=== PATIENT | female | born 1945 | race Caucasian/White ===

== ENCOUNTER 2017-10-15 12:00 | Inpatient (IN) | payer BC, MEDICARE ==
--- NOTE | 2017-10-02 21:02 | HP ---
PREOPERATIVE HISTORY AND PHYSICAL: DATE OF ADMISSION: 10/15/17 PROVIDER: Shantell Dyer MD * (DICTATED BY CHERELLE RYAN) CHIEF COMPLAINT: Right hip pain. HISTORY OF PRESENT ILLNESS: Ms. Maxwell is a 72-year-old female, who has been followed by Dr. Dyer for ongoing pain in her right hip due to end-stage osteoarthritis and avascular necrosis. She has had an increase in hip pain and walking makes it very difficult. She has failed conservative treatment and has elected to proceed with a total hip arthroplasty. PAST MEDICAL HISTORY: Osteoarthritis, avascular necrosis of bilateral femoral heads, history of shoulder pain, cervical spine degeneration, trochanteric bursitis, hyperlipidemia, hypertension, coronary artery disease, atrial fibrillation, chronic low back pain, obstructive sleep apnea, and restless legs syndrome. PAST SURGICAL HISTORY: Cervical spine surgery, cardiac stents x3, cardio loop, cardioversion x4, appendectomy, cholecystectomy, and hysterectomy. She reports no complications with anesthesia. CURRENT MEDICATIONS: 1. Diltiazem 120 mg daily. 2. Hydrocodone/acetaminophen 7.5/325 mg 1 by mouth every 8 hours as needed for pain. 3. Propafenone HCl 225 mg by mouth twice daily. 4. Cartia XT 240 mg daily. 5. Xarelto 15 mg daily. 6. CPAP machine. ALLERGIES: OXYCONTIN and LATEX. FAMILY HISTORY: Positive for heart disease. 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 She is currently not working due to her hip pain and spine surgery. She quit smoking 15 years ago. She rarely drinks alcohol. She uses a cane or a rolling walker for ambulation. REVIEW OF SYSTEMS: Constitutional: Negative for recent hospitalizations, fevers, chills, night sweats, or unexplained weight loss. Head: Negative for headaches, lightheadedness, or balance problems. Cardiovascular: Negative for chest or arm pain with exertion, history of heart attack, heart murmur. Positive for heart palpitations. Negative for embolism or deep vein thrombosis. Respiratory: Negative for chronic cough, shortness of breath with exertion, asthma, or COPD. Gastrointestinal: Negative for heartburn, nausea, vomiting, diarrhea, constipation, or GERD. Genitourinary: Negative for nighttime urination, frequency of urination, urinary tract infections, or kidney problems. Musculoskeletal: Positive for chronic back and neck pain. Negative for recent fracture. Skin: Negative for rashes, lesions, lumps, or sores. Neurologic: Negative for seizure, stroke, epilepsy, depression, or anxiety. Endocrine: Negative for diabetes or thyroid problems. Hematology: Negative for easy bleeding, bruising, or anemia. PHYSICAL EXAMINATION GENERAL: She is a well-developed, well-nourished female in no acute distress at rest. She is alert and oriented x3 with appropriate mood and affect. Gait: She ambulates with an antalgic gait favoring the right lower extremity with mild abductor lurch. Balance has decreased single leg stance. Coordination is normal. VITAL SIGNS: The patient is 5 feet 4 inches, 178 pounds. Blood pressure 128/80 , pulse of 60. HEENT: Normocephalic, atraumatic. Her hearing and vision are grossly intact. NECK: Her trachea is midline. RESPIRATORY: Lungs are clear to auscultation bilaterally. No wheezes, rales, or rhonchi. CARDIOVASCULAR: Regular rate and rhythm. No murmurs, rubs, or gallops. Normal S1, S2. ABDOMEN: Soft, nondistended, nontender. Normal bowel sounds. EXTREMITIES: Exam of the right lower extremity: Skin is intact. There are no abrasions or open wounds. She is tender along the SI joint and trochanteric bursa. She has hip flexion of 95 degrees, 0 degrees of internal rotation, and 30 degrees of external rotation with severe pain in the groin. She has active flexion and abduction and 4+/5 strength due to pain. Distally, she is neurovascularly intact. Sensation to light touch is intact. She has a 2+ dorsalis pedis pulse. IMAGING: Multiple plain films of the right hip and MRI of her right hip were reviewed. She has avascular necrosis on an MRI from July of 2016. Plain radiograph showed degenerative osteoarthritic change with avascular necrosis of the femoral head. There is joint space narrowing, subchondral sclerosis and osteophyte formation. IMPRESSION: Right hip osteoarthritis. PLAN: The patient is to undergo a right total hip arthroplasty by Dr. Dyer on 10/15/17. Risks, benefits, and postoperative course were discussed with the patient at length and she would like to proceed. She will use Recluse for postoperative pain as OXYCODONE makes her significantly nauseous. All of her questions were answered to her full satisfaction. CHERELLE RYAN [id number]/[facility] #: [id number] [facility]ERS[facility] HOSPITALMercedes
[~2017-10-15 12:00] MED LIST: Buffered Lidocaine 0.9% SYRIN* 5 ML/SYR SYRINGE INTRADERM ONE; Famotidine IV* 10 MG/ML 2 ML (20 mg) IV ONE
--- OUTSIDE RECORDS SUMMARY | 2017-10-15 12:29 | XMS REPORT ---
:1945 External Reference #:[id number] Author Organization [facility] Address [address] [place] [address] [place] [address] Phone [phone] Care Team Providers Name Role Phone Humberto Milner MD Primary Care Physician Unavailable Payers Type Date Identification Numbers Payment Provider Subscriber Health Maintenance Policy Number: [facility] [id number] PayID: [id number] [address] [address] [place] [address] Problems Date Description Provider Status Onset: 06/27/2015 Localized, primary osteoarthritis Shantell Dyer M.D. Active of the pelvic region and thigh Onset: 07/25/2015 Zoster with other complications Shantell Dyer M.D. Active Onset: 12/07/2015 Low back pain Shantell Dyer M.D. Active Onset: 12/13/2015 Paroxysmal atrial fibrillation Patricia Galeas M.D. Active Onset: 12/13/2015 Coronary arteriosclerosis in Patricia Galeas M.D. Active wrangell artery Onset: 12/13/2015 Essential hypertension Patricia Galeas M.D. Active Onset: 12/13/2015 Mixed hyperlipidemia Patricia Galeas M.D. Active Onset: 02/10/2016 Trochanteric bursitis Shantell Dyer M.D. Active Onset: 03/02/2016 Calcium deposits in tendon Shantell Dyer M.D. Active Onset: 03/02/2016 Disorder of shoulder Shantell Dyer M.D. Active Onset: 06/07/2016 Persistent atrial fibrillation Patricia Galeas M.D. Active Onset: 06/28/2016 Sprain of shoulder and upper arm CHERELLE Benson Active Onset: 08/06/2016 Aseptic necrosis of head of femur Shantell Dyer M.D. Active Onset: 08/31/2016 Syncope and collapse Patricia Galeas M.D. 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 Active Onset: 12/04/2016 Inflammatory and toxic neuropathy Patricia Galeas M.D. 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 Active Onset: 06/24/2017 Preoperative cardiovascular Patricia Galeas M.D. 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 /2018 s every day Tucker, N.P. Restless Leg 09/06 Active qd Elvin Blanchard M.D. Cartia XT 09/06 Active Caps ER 120mg 30cap Take 1 by I10 Kristen S. 24HR s mouth daily Foster, with the N.P. 240mg for a total of 360mg Diltiazem HCL 07/09 Active Tablets 60mg 90tab 1/2 tab PO I48.1 s Am 1 Gudelia, tablets at M.D. lunch and 1/2 tablets PM Hydrocodone-Acetam 07/08 Active Tablets 7.5-325mg 28tab take one s tab by Lo, mouth every M.D. 8 hours as needed for pain Propafenone HCL 02/28 Active Tablets 225mg 180ta 1 tab by Patricia bs mouth twice Lamar, a day M.D. Cartia XT 01/22 Active Caps ER 240mg 90cap 1 by mouth Patricia 24HR s every day Lamar, M.D. Cpap Active Device using while Unknown /0000 sleeping (not as much as she should be per patient) [place] 07/03 Hx Tablets 5-325mg 60tab Wtake 1-2 s tabs by Lo, - mouth every M.D. 07/08 4-6 hours /2017 as needed for pain. Propafenone HCL 02/19 Hx Tablets 225mg 60tab 1 tab po I48.0 s twice a day Gudelia, - (waiting to M.D. 02/18 start after ECG 02/19/17- has not been sent to pharmacy yet) Metoprolol 02/15 Hx Tablets 50mg 90tab 2 by I47.2 Patricia Succinate ER 24HR s mouth every Lamar, - day ( M.D. 04/29 started medication change 04/26/17) Metoprolol 01/22 Hx Tablets 25mg 90tab 1 by mouth I47.2 Patricia Succinate ER 24HR s every day Lamar, - PM M.D. 02/15 Demadex 01/03 Hx Tablets 20mg 90tab t ablet prn s swelling, Lamar, - previously M.D. 08/14 1 tablet PO /2017 3 days weekly and as recommended by ( Pt has not taken ) Lasix 11/30 Hx Tablets 20mg 30tab 1 by mouth Patricia s q day x 2 Gudelia, - with M.D. 01/03 potassium then prn Klor-Con M10 11/30 Hx Tablets 10Meq 60tab 2 tab by Patricia ER s mouth with Lamar, - demadex M.D. 09/05 afterrnoon ( Takes 2 tablets prn when takes Torsemide) ( pt has not taken) Medrol 10/22 Hx Tablets 4mg 21tab take as M54.12 Jah s directed F - per dosepak Jaqueline, 11/05 instruction s Methylprednisolone 09/28 Hx TBPK 4mg 1unit take as M25.512 Shantell s directed Gomez, - M.DKarla 11/05 Meloxicam 08/06 Hx Tablets 15mg 60tab 1 by mouth M75.42 Shantell s every day Gomez, - M.DKarla 08/30 Hydrocodone-Acetam 06/28 Hx Tablets 7.5-325mg 30tab take one M25.511 Shantell inophen s tab by Gomez, - mouth every M.D. 09/23 4 hours needed for pain Sotalol HCL 06/07 Hx Tablets 80mg 180ta 1 tab by I48.1 Patricia bs mouth twice Lamar, - a day M.D. 02/15 Xarelto 06/06 Hx Tablets 15mg 30tab 1 by mouth David s every day F. - at night Mauser, 09/10 M.D. Cyclobenzaprine 03/19 Hx Tablets 10mg 40tab 1 tablet by M79.604 Shantell HCL s mouth q8 Gomez, - hours as M.D. 06/19 needed muscle spasms (Pt not taking) [place] Hx Tablets 10-325mg 1-2 by Unknown /0000 mouth - q4-6hr as 12/05 Valtrex Hx Tablets 500mg 1 by mouth Unknown /0000 twice a day - x 5 days 12/05 Diltiazem CD Hx Caps ER 240mg 1 by mouth Unknown /0000 24HR every day - 12/05 Aspirin Hx Tablets 81mg 1 by mouth Unknown /0000 every day - 12/05 Metoprolol Hx Tablets 50mg 90tab 1 by mouth I48.1 Patricia Tartrate /0000 s daily Lamar, - M.D. 06/07 Cartia XT Hx Caps ER 300mg 90cap 1 by mouth Patricia /0000 24HR s every day Lamar, - Am M.D. 01/22 (Rivaroxaban) Hx 20mg one daily Patricia Xarelto /0000 at hs Gudelia, - M.D. 06/06 Magnesium Oxide Hx Capsules 400mg by mouth Unknown every day - 05/08 Restful Legs Hx Tablets 4 tablet Unknown - 02/14 G Hx Quick 4 tablet po Unknown Disolve morning - daily 08/14 ( 4 tablet evening if needed ) ( Pt has not taken) Ibuprofen Hx Capsules 200mg 4 tablet po Unknown 1-2 times - daily ( Pt 09/05 does /2017 take) Medications Administered in Office Medication Date Status Form Strength Qnty SIG Indications Ordering Provider Inj, Administered Injection José Miguel Flores Regadenoson, 018 Demond, 0.1 MG Ashwin, PATITO, FASNC Technetium TC Administered Injection José Miguel Mark 99M 018 Carleen Lagos M.D., PATITO, Per Unit Dose FASNC Up To 40 Millicuries Depomedrol Administered Injection Shantell 40MG Sawyer Dyer M.D. Depomedrol Administered Injection Nadja B 40MG 017 CHERELLE Carreon Depomedrol Administered Injection Shantell 40MG Sawyer Dyer M.D. Depomedrol Administered Injection Shantell 40MG Sawyer Dyer M.D. Technetium TC Administered Injection José Miguel Flores 99M 017 Carleen Lagos M.D., PATITO, Per Unit Dose FASNC Up To 40 Millicuries Depomedrol Administered Injection Shantell 40MG 016 Ashwin Dyer Depomedrol Administered Injection Shantell 40MG 016 Aswhin Dyer Depomedrol Administered Injection Shantell 40MG 016 Ashwin Dyer Depomedrol Administered Injection Shantell 40MG 016 Ashwin Dyer Vital Signs Date Vital Result Comment 10/02/2017 Height 64 inches 5'4" Weight 178.00 lb Heart Rate 60 /min BP Systolic 128 mmHg BP Diastolic 80 mmHg BMI (Body Mass Index) 30.6 kg/m2 09/06/2017 Height 64 inches 5'4" Weight 176.00 lb Heart Rate 72 /min BP Systolic 128 mmHg BP Diastolic 62 mmHg Respiratory Rate 16 /min BMI (Body Mass Index) 30.2 kg/m2 Ejection Fraction 55-60% 05/17/2017 echo 09/06/2017 Height 64 inches 5'4" Weight 175.00 lb BP Systolic Sitting 132 mmHg BP Diastolic Sitting 80 mmHg Body Temperature 97.8 F Pain Level 4 BMI (Body Mass Index) 30.0 kg/m2 08/22/2017 Height 64 inches 5'4" Weight 177.00 lb Heart Rate 68 /min BP Systolic Sitting 164 mmHg Lue reg cuff BP Diastolic Sitting 80 mmHg Lue reg cuff BP Systolic Standing 162 mmHg BP Diastolic Standing 80 mmHg BP Systolic Recheck 169 mmHg left wrist home cuff BP Diastolic Recheck 87 mmHg left wrist home cuff Respiratory Rate 16 /min BMI (Body Mass Index) 30.4 kg/m2 Ejection Fraction 55-60% 05/17/17 08/09/2017 Height 64 inches 5'4" Weight 174.00 lb BP Systolic Sitting 130 mmHg BP Diastolic Sitting 80 mmHg Pain Level 2 BMI (Body Mass Index) 29.9 kg/m2 07/30/2017 Height 64 inches 5'4" Weight 174.00 lb with shoes Heart Rate 88 /min irreg BP Systolic Sitting 132 mmHg Rue reg cuff BP Diastolic Sitting 76 mmHg Rue reg cuff BP Systolic Standing 128 mmHg Rue reg cuff BP Diastolic Standing 74 mmHg Rue reg cuff Respiratory Rate 16 /min BMI (Body Mass Index) 29.9 kg/m2 Ejection Fraction 55-60% 05/17/2017-echo 07/17/2017 Weight 177.00 lb Heart Rate 104 /min BP Systolic Sitting 140 mmHg BP Diastolic Sitting 90 mmHg Body Temperature 97.8 F Pain Level 8 O2 % BldC Oximetry 92 % 07/09/2017 Heart Rate 128 /min irreg BP Systolic Sitting 150 mmHg Lue reg cuff BP Diastolic Sitting 90 mmHg Lue reg cuff BP Systolic Standing 144 mmHg Lue reg cuff BP Diastolic Standing 90 mmHg Lue reg cuff Respiratory Rate 22 /min 06/24/2017 Height 64 inches 5'4" Weight 177.00 lb No shoes Heart Rate 68 /min BP Systolic Sitting 138 mmHg Rue reg cuff BP Diastolic Sitting 76 mmHg Rue reg cuff BP Systolic Standing 140 mmHg Rue reg cuff BP Diastolic Standing 72 mmHg Rue reg cuff Respiratory Rate 17 /min BMI (Body Mass Index) 30.4 kg/m2 Ejection Fraction 55-60% 05/17/2017-echo 06/19/2017 Height 64 inches 5'4" Weight 178.00 lb Heart Rate 72 /min BP Systolic Sitting 130 mmHg BP Diastolic Sitting 80 mmHg Pain Level 9 BMI (Body Mass Index) 30.6 kg/m2 04/29/2017 Weight 178.00 lb with shoes Heart Rate 50 /min BP Systolic Sitting 120 mmHg Rue reg cuff BP Diastolic Sitting 60 mmHg Rue reg cuff BP Systolic Standing 112 mmHg Rue reg cuff states" Lightheaded" BP Diastolic Standing 58 mmHg Rue reg cuff states" Lightheaded" Respiratory Rate 12 /min O2 % BldC Oximetry 100 % at room air Ejection Fraction 55-60% date 07/20/2014 ECHO 03/28/2017 Height 64 inches 5'4" Weight 178.00 lb Heart Rate 88 /min BP Systolic Sitting 130 mmHg Rue reg cuff BP Diastolic Sitting 78 mmHg Rue reg cuff BP Systolic Standing 126 mmHg Rue BP Diastolic Standing 74 mmHg Rue Respiratory Rate 16 /min BMI (Body Mass Index) 30.6 kg/m2 Ejection Fraction 55-60% 07/20/14 03/08/2017 Height 64 inches 5'4" Heart Rate 76 /min apical BP Systolic Sitting 120 mmHg Ra< reg BP Diastolic Sitting 74 mmHg Ra< reg BP Systolic Standing 126 mmHg LA, reg BP Diastolic Standing 76 mmHg LA, reg 02/28/2017 Height 64 inches 5'4" Heart Rate 58 /min BP Systolic Sitting 128 mmHg Lue reg cuff BP Diastolic Sitting 78 mmHg Lue reg cuff BP Systolic Standing 122 mmHg Lue reg cuff BP Diastolic Standing 70 mmHg Lue reg cuff Respiratory Rate 16 /min 02/19/2017 Height 64 inches 5'4" Heart Rate 50 /min BP Systolic Sitting 110 mmHg Rue reg cuff BP Diastolic Sitting 60 mmHg Rue reg cuff BP Systolic Standing 120 mmHg Rue reg cuff BP Diastolic Standing 76 mmHg Rue reg cuff 02/15/2017 Height 64 inches 5'4" Weight 179.00 lb with shoes Heart Rate 50 /min BP Systolic Sitting 120 mmHg Rue lg cuff BP Diastolic Sitting 72 mmHg Rue lg cuff BP Systolic Standing 128 mmHg Rue lg cuff BP Diastolic Standing 70 mmHg Rue lg cuff Respiratory Rate 16 /min BMI (Body Mass Index) 30.7 kg/m2 Ejection Fraction 55-60% date 07/20/16 ECHO 02/12/2017 Height 64 inches 5'4" Weight 178.00 lb w/ shoes Heart Rate 58 /min reg BP Systolic Sitting 132 mmHg Rue, lg cuff BP Diastolic Sitting 74 mmHg Rue, lg cuff Respiratory Rate 16 /min O2 % BldC Oximetry 98 % on Ra BMI (Body Mass Index) 30.6 kg/m2 01/28/2017 Height 64 inches 5'4" Weight 177.00 lb Heart Rate 78 /min BP Systolic Sitting 140 mmHg BP Diastolic Sitting 82 mmHg Pain Level 4 BMI (Body Mass Index) 30.4 kg/m2 01/22/2017 Weight 177.00 lb with shoes Heart Rate 74 /min BP Systolic 140 mmHg Lue lf cuff BP Diastolic 80 mmHg Lue lf cuff BP Systolic Sitting 160 mmHg Lue lg cuff BP Diastolic Sitting 90 mmHg Lue lg cuff BP Systolic Lying Down 118 mmHg Lyning R BP Diastolic Lying Down 90 mmHg Lyning R 12/12/2016 Height 64 inches 5'4" Weight 218.00 lb Heart Rate 68 /min BP Systolic Sitting 120 mmHg BP Diastolic Sitting 68 mmHg Respiratory Rate 16 /min Pain Level 6 spasming feet back pain O2 % BldC Oximetry 95 % BMI (Body Mass Index) 37.4 kg/m2 12/04/2016 Height 64 inches 5'4" Weight 182.00 lb with shoes Heart Rate 68 /min BP Systolic Sitting 136 mmHg Lue reg cuff BP Diastolic Sitting 70 mmHg Lue reg cuff BP Systolic Standing 140 mmHg Lue reg cuff BP Diastolic Standing 74 mmHg Lue reg cuff Respiratory Rate 18 /min BMI (Body Mass Index) 31.2 kg/m2 Ejection Fraction 55-60% 07/20/2016-echo 11/26/2016 Height 64 inches 5'4" Weight 178.00 lb Heart Rate 72 /min BP Systolic Sitting 158 mmHg BP Diastolic Sitting 80 mmHg Pain Level 6 BMI (Body Mass Index) 30.6 kg/m2 11/05/2016 Height 64 inches 5'4" Weight 178.00 lb Heart Rate 78 /min BP Systolic Sitting 140 mmHg BP Diastolic Sitting 80 mmHg Pain Level 8 BMI (Body Mass Index) 30.6 kg/m2 10/31/2016 Height 64 inches 5'4" Weight 181.00 lb Heart Rate 64 /min BP Systolic Sitting 138 mmHg BP Diastolic Sitting 68 mmHg Respiratory Rate 14 /min O2 % BldC Oximetry 96 % BMI (Body Mass Index) 31.1 kg/m2 10/22/2016 Height 64 inches 5'4" Weight 177.00 lb Heart Rate 86 /min Respiratory Rate 16 /min Pain Level 8 BMI (Body Mass Index) 30.4 kg/m2 10/12/2016 Height 64 inches 5'4" Weight 177.00 lb Heart Rate 69 /min BP Systolic 138 mmHg BP Diastolic 71 mmHg Respiratory Rate 13 /min Pain Level 6 BMI (Body Mass Index) 30.4 kg/m2 09/28/2016 Height 64 inches 5'4" Weight 177.00 lb Heart Rate 68 /min BP Systolic 122 mmHg BP Diastolic 78 mmHg Respiratory Rate 15 /min Body Temperature 97.7 F Pain Level 7 BMI (Body Mass Index) 30.4 kg/m2 09/24/2016 Height 64 inches 5'4" Weight 177.00 lb Heart Rate 62 /min BP Systolic Sitting 124 mmHg right arm ,reg cuff BP Diastolic Sitting 76 mmHg right arm ,reg cuff Respiratory Rate 20 /min O2 % BldC Oximetry 97 % room air BMI (Body Mass Index) 30.4 kg/m2 Neck Circumference in inches 15 08/31/2016 Height 64 inches 5'4" Weight 174.00 lb Heart Rate 62 /min BP Systolic Sitting 146 mmHg Lue reg cuff BP Diastolic Sitting 82 mmHg Lue reg cuff BP Systolic Standing 142 mmHg Lue reg cuff BP Diastolic Standing 82 mmHg Lue reg cuff Respiratory Rate 16 /min BMI (Body Mass Index) 29.9 kg/m2 Ejection Fraction 55-60% echo 07/201408/24/2016 Height 64 inches 5'4" Weight 169.00 lb Heart Rate 68 /min BP Systolic 139 mmHg BP Diastolic 64 mmHg Body Temperature 97.4 F Pain Level 4 BMI (Body Mass Index) 29.0 kg/m2 08/06/2016 Height 63 inches 5'3" Weight 172.00 lb Heart Rate 79 /min BP Systolic 161 mmHg BP Diastolic 88 mmHg Body Temperature 98.2 F BMI (Body Mass Index) 30.5 kg/m2 08/03/2016 Height 63 inches 5'3" Weight 175.50 lb w/o shoes Heart Rate 72 /min BP Systolic Sitting 142 mmHg LA reg cuff BP Diastolic Sitting 86 mmHg LA reg cuff BP Systolic Standing 150 mmHg LA reg cuff BP Diastolic Standing 80 mmHg LA reg cuff BMI (Body Mass Index) 31.1 kg/m2 Ejection Fraction 55-60% Echo 07/20/14 07/06/2016 Height 63 inches 5'3" Weight 172.00 lb Heart Rate 67 /min BP Systolic 141 mmHg BP Diastolic 68 mmHg Respiratory Rate 18 /min Body Temperature 98.0 F Pain Level 5 BMI (Body Mass Index) 30.5 kg/m2 06/28/2016 Height 63 inches 5'3" Weight 172.00 lb Heart Rate 88 /min BP Systolic Sitting 130 mmHg BP Diastolic Sitting 78 mmHg Respiratory Rate 18 /min Pain Level 10 BMI (Body Mass Index) 30.5 kg/m2 06/18/2016 Height 63 inches 5'3" Weight 172.00 lb Heart Rate 84 /min BP Systolic 118 mmHg BP Diastolic 74 mmHg Pain Level 10 BMI (Body Mass Index) 30.5 kg/m2 06/07/2016 Height 63 inches 5'3" Weight 175.00 lb Heart Rate 80 /min BP Systolic Sitting 126 mmHg Lue reg cuff BP Diastolic Sitting 84 mmHg Lue reg cuff BP Systolic Standing 130 mmHg Lue BP Diastolic Standing 90 mmHg Lue Respiratory Rate 14 /min BMI (Body Mass Index) 31.0 kg/m2 Ejection Fraction 55-60% 07/20/14 05/08/2016 Height 63 inches 5'3" Weight 176.00 lb Heart Rate 100 /min irregular BP Systolic Sitting 118 mmHg BP Diastolic Sitting 84 mmHg BP Systolic Standing 112 mmHg BP Diastolic Standing 82 mmHg Respiratory Rate 16 /min BMI (Body Mass Index) 31.2 kg/m2 Ejection Fraction 55-60% 07/20/14 03/19/2016 Height 63 inches 5'3" Heart Rate 52 /min BP Systolic 135 mmHg BP Diastolic 74 mmHg 03/16/2016 Height 63 inches 5'3" Weight 172.00 lb w/o shoes Heart Rate 84 /min BP Systolic Sitting 120 mmHg Rue, reg cuff BP Diastolic Sitting 80 mmHg Rue, reg cuff BP Systolic Standing 114 mmHg Rue BP Diastolic Standing 80 mmHg Rue Respiratory Rate 16 /min O2 % BldC Oximetry 96 % on Ra BMI (Body Mass Index) 30.5 kg/m2 Ejection Fraction 55-60% as of 07/20/14 echo 03/02/2016 Height 63 inches 5'3" Weight 165.00 lb BP Systolic 128 mmHg BP Diastolic 70 mmHg BMI (Body Mass Index) 29.2 kg/m2 02/20/2016 Height 63 inches 5'3" Weight 164.00 lb Pain Level 0 BMI (Body Mass Index) 29.0 kg/m2 02/10/2016 Height 63 inches 5'3" Weight 164.00 lb Respiratory Rate 16 /min Pain Level 6 BMI (Body Mass Index) 29.0 kg/m2 12/13/2015 Height 63 inches 5'3" Weight 164.50 lb no shoes Heart Rate 62 /min BP Systolic Sitting 152 mmHg LA reg cuff BP Diastolic Sitting 70 mmHg LA reg cuff BP Systolic Standing 146 mmHg LA reg cuff BP Diastolic Standing 66 mmHg LA reg cuff Respiratory Rate 16 /min BMI (Body Mass Index) 29.1 kg/m2 Ejection Fraction 55-60% 07/20/14 12/07/2015 Heart Rate 60 /min BP Systolic 131 mmHg BP Diastolic 71 mmHg Pain Level 0 07/25/2015 Height 63 inches 5'3" Weight 170.00 lb Pain Level 5 BMI (Body Mass Index) 30.1 kg/m2 07/04/2015 Height 63 inches 5'3" Weight 170.00 lb Pain Level 8 BMI (Body Mass Index) 30.1 kg/m2 06/27/2015 Height 63 inches 5'3" Weight 170.00 lb Heart Rate 76 /min BP Systolic Sitting 150 mmHg BP Diastolic Sitting 70 mmHg Respiratory Rate 16 /min Pain Level 8 BMI (Body Mass Index) 30.1 kg/m2 Results Test Date Test Result H/L Range Note CBC No Diff 06/25/2017 White Blood Count 6.8 10^3/uL 3.5-10.8 Red Blood Count 4.86 10^6/uL 4.0-5.4 Hemoglobin 14.4 g/dL 12.0-16.0 Hematocrit 43 % 35-47 Mean Corpuscular Volume 89 fL 80-97 Mean Corpuscular Hemoglobin 30 pg 27-31 Mean Corpuscular HGB Conc 33 g/dL 31-36 Red Cell Distribution Width 14 % 10.5-15 Platelet Count 240 10^3/uL 150-450 Mean Platelet Volume 8 um3 7.4-10.4 Basic Metabolic Panel 06/25/2017 Sodium 139 mmol/L 133-145 Potassium 4.6 mmol/L 3.5-5.0 Chloride 104 mmol/L 101-111 Co2 Carbon Dioxide 27 mmol/L 22-32 Anion Gap 8 mmol/L 2-11 Glucose 104 mg/dL High 70-100 Blood Urea Nitrogen 18 mg/dL 6-24 Creatinine 0.85 mg/dL 0.51-0.95 BUN/Creatinine Ratio 21.2 High 8-20 Calcium 9.7 mg/dL 8.6-10.3 Egfr Non- 65.7 >60 Egfr 84.5 >60 1 Laboratory test finding 06/25/2017 TSH (Thyroid Stim Horm) 2.41 mcIU/mL 0.34-5.60 Basic Metabolic Panel 04/11/2017 Sodium 137 mmol/L 133-145 Potassium 4.0 mmol/L 3.5-5.0 Chloride 107 mmol/L 101-111 Co2 Carbon Dioxide 23 mmol/L 22-32 Anion Gap 7 mmol/L 2-11 Glucose 101 mg/dL High 70-100 Blood Urea Nitrogen 21 mg/dL 6-24 Creatinine 0.67 mg/dL 0.51-0.95 BUN/Creatinine Ratio 31.3 High 8-20 Calcium 8.7 mg/dL 8.6-10.3 Egfr Non- 86.5 >60 Egfr 111.3 >60 2 Laboratory test finding 04/11/2017 B-Type Natriuretic 178 pg/mL High 3 Peptide BNP Basic Metabolic Panel 01/22/2017 Sodium 139 mmol/L 133-145 Potassium 4.1 mmol/L 3.5-5.0 Chloride 104 mmol/L 101-111 Co2 Carbon Dioxide 26 mmol/L 22-32 Anion Gap 9 mmol/L 2-11 Glucose 103 mg/dL High 70-100 Blood Urea Nitrogen 16 mg/dL 6-24 Creatinine 0.70 mg/dL 0.51-0.95 BUN/Creatinine Ratio 22.9 High 8-20 Calcium 9.5 mg/dL 8.6-10.3 Egfr Non- 82.5 >60 Egfr 106.1 >60 4 Laboratory test finding 01/22/2017 Magnesium 2.0 mg/dL 1.9-2.7 CBC Auto Diff 06/29/2016 White Blood Count 15.0 10^3/uL High 3.5-10.8 Red Blood Count 5.15 10^6/uL 4.0-5.4 Hemoglobin 15.5 g/dL 12.0-16.0 Hematocrit 47 % 35-47 Mean Corpuscular Volume 91 fL 80-97 Mean Corpuscular Hemoglobin 30 pg 27-31 Mean Corpuscular HGB Conc 33 g/dL 31-36 Red Cell Distribution Width 15 % 10.5-15 Platelet Count 234 10^3/uL 150-450 Mean Platelet Volume 8 um3 7.4-10.4 Abs Neutrophils 12.5 10^3/uL High 1.5-7.7 Abs Lymphocytes 1.5 10^3/uL 1.0-4.8 Abs Monocytes 0.9 10^3/uL High 0-0.8 Abs Eosinophils 0 10^3/uL 0-0.6 Abs Basophils 0.1 10^3/uL 0-0.2 Abs Nucleated RBC 0 10^3/uL Granulocyte % 83.2 % High 38-83 Lymphocyte % 9.8 % Low 25-47 Monocyte % 6.3 % 1-9 Eosinophil % 0.1 % 0-6 Basophil % 0.6 % 0-2 Nucleated Red Blood Cells % 0 Laboratory test finding 06/29/2016 Magnesium 2.0 mg/dL 1.9-2.7 Basic Metabolic Panel 06/29/2016 Sodium 131 mmol/L Low 133-145 Potassium 4.3 mmol/L 3.5-5.0 Chloride 101 mmol/L 101-111 Co2 Carbon Dioxide 23 mmol/L 22-32 Anion Gap 7 mmol/L 2-11 Glucose 111 mg/dL High 70-100 Blood Urea Nitrogen 21 mg/dL 6-24 Creatinine 0.64 mg/dL 0.51-0.95 BUN/Creatinine Ratio 32.8 High 8-20 Calcium 9.1 mg/dL 8.6-10.3 Egfr Non- 91.5 >60 Egfr 117.6 >60 5 Arthritis Panel 06/20/2016 Uric Acid 5.4 mg/dL 2.3-6.6 Erythrocyte Sed Rate 11 mm/Hr 0-40 Rheumatoid Factor <15 IU/mL <15 6 Anti-Nuclear Antibody 0.2 U 7 Cyclic Citrullinated Peptide <15.6 U 8 Interpretation See Comment 9 1 Because ethnic data is not always readily available, this report includes an eGFR for both -Americans and non- Americans. The National Kidney Disease Education Program (NKDEP) does not endorse the use of the MDRD equation for patients that are not between the ages of 18 and 70, are , have extremes of body size, muscle mass, or nutritional status, or are non- or non-. According to the National Kidney Foundation, irrespective of diagnosis, the stage of the disease is based on the level of kidney function: Stage Description GFR(mL/min/1.73 m(2)) 1 Kidney damage with normal or decreased GFR 90 2 Kidney damage with mild decrease in GFR 60-89 3 Moderate decrease in GFR 30-59 4 Severe decrease in GFR 15-29 5 Kidney failure <15 (or dialysis) 2 Because ethnic data is not always readily available, this report includes an eGFR for both -Americans and non- Americans. The National Kidney Disease Education Program (NKDEP) does not endorse the use of the MDRD equation for patients that are not between the ages of 18 and 70, are , have extremes of body size, muscle mass, or nutritional status, or are non- or non-. According to the National Kidney Foundation, irrespective of diagnosis, the stage of the disease is based on the level of kidney function: Stage Description GFR(mL/min/1.73 m(2)) 1 Kidney damage with normal or decreased GFR 90 2 Kidney damage with mild decrease in GFR 60-89 3 Moderate decrease in GFR 30-59 4 Severe decrease in GFR 15-29 5 Kidney failure <15 (or dialysis) 3 >100 to <200 pg/mL: likely compensated congestive heart failure (CHF) 200 to 400 pg/mL: likely moderate CHF >400 pg/mL: likely moderate to severe CHF 4 Because ethnic data is not always readily available, this report includes an eGFR for both -Americans and non- Americans. The National Kidney Disease Education Program (NKDEP) does not endorse the use of the MDRD equation for patients that are not between the ages of 18 and 70, are , have extremes of body size, muscle mass, or nutritional status, or are non- or non-. According to the National Kidney Foundation, irrespective of diagnosis, the stage of the disease is based on the level of kidney function: Stage Description GFR(mL/min/1.73 m(2)) 1 Kidney damage with normal or decreased GFR 90 2 Kidney damage with mild decrease in GFR 60-89 3 Moderate decrease in GFR 30-59 4 Severe decrease in GFR 15-29 5 Kidney failure <15 (or dialysis) 5 Because ethnic data is not always readily available, this report includes an eGFR for both -Americans and non- Americans. The National Kidney Disease Education Program (NKDEP) does not endorse the use of the MDRD equation for patients that are not between the ages of 18 and 70, are , have extremes of body size, muscle mass, or nutritional status, or are non- or non-. According to the National Kidney Foundation, irrespective of diagnosis, the stage of the disease is based on the level of kidney function: Stage Description GFR(mL/min/1.73 m(2)) 1 Kidney damage with normal or decreased GFR 90 2 Kidney damage with mild decrease in GFR 60-89 3 Moderate decrease in GFR 30-59 4 Severe decrease in GFR 15-29 5 Kidney failure <15 (or dialysis) 6 Test Performed by: [address] [address] 7 REFERENCE VALUE <=1.0 (Negative) 8 REFERENCE VALUE <20.0 (Negative) 9 Tests for antibodies to dsDNA and BILL antigens are not performed automatically unless the KRYSTEN result is > or= 3.0 U. Studies performed at [facility] indicate that positive KRYSTEN results <3.0 U are rarely accompanied by positive second order tests. Test Performed by: [address] [address] Procedures Date CPT Code Description Status 09/06/2017 70801 EKG Tracing & Interpretation Completed 08/22/2017 02689 EKG Tracing & Interpretation Completed 08/22/2017 67499 EKG Tracing & Interpretation Completed 08/18/2017 99734 Implantable Cardio System Loop Recorder Sys Remota Data Completed Acquistio 08/18/2017 25159 Interrogation Dev Loop Recorder Incl Physician Completed Analysis,Rev,Repor 08/15/2017 08324 Moderate Sedation Services; Same Phys Intl 15 Mins; PT Completed >=5 Years 08/15/2017 57911 Cardioversion Completed 07/30/2017 36258 EKG Tracing & Interpretation Completed 07/18/2017 35628 Implantable Cardio System Loop Recorder Sys Remota Data Completed Acquistio 07/18/2017 55209 Interrogation Dev Loop Recorder Incl Physician Completed Analysis,Rev,Repor 07/09/2017 99557 EKG Tracing & Interpretation Completed 07/02/2017 10517 Anterior Instrumentation 2-3 Vertebral Segments Completed 07/02/2017 22527 Anterior Instrumentation 2-3 Vertebral Segments Completed 07/02/2017 96886 arthrodesis,anterior interbody incl disc space Completed prep,discectomy,de 07/02/2017 43301 arthrodesis,anterior interbody incl disc space Completed prep,discectomy,de 07/02/2017 22422 Allograft For Spine Surgery,Structural (Bone Bank) Completed 06/25/2017 10726 Pulmonary Function><Bronchodil Completed 06/24/2017 38008 EKG Tracing & Interpretation Completed 06/17/2017 57984 Implantable Cardio System Loop Recorder Sys Remota Data Completed Acquistio 06/17/2017 34449 Interrogation Dev Loop Recorder Incl Physician Completed Analysis,Rev,Repor 05/28/2017 09140 Myocardial Perfusion Imaging Tomographic (Spect) Completed Multiple Studies 05/28/2017 81502 Stress Test Completed 05/17/2017 84264 ECHO Transthoracic, Real-Time 2D With Doppler And Color Completed Flow 05/17/2017 60270 ECHO Transthoracic, Real-Time 2D With Doppler And Color Completed Flow 05/17/2017 68396 Implantable Cardio System Loop Recorder Sys Remota Data Completed Acquistio 05/17/2017 69453 Interrogation Dev Loop Recorder Incl Physician Completed Analysis,Rev,Repor 04/29/2017 40668 EKG Tracing & Interpretation Completed 04/16/2017 07146 Implantable Cardio System Loop Recorder Sys Remota Data Completed Acquistio 04/16/2017 51769 Interrogation Dev Loop Recorder Incl Physician Completed Analysis,Rev,Repor 04/11/2017 79194 Cardioversion Completed 04/11/2017 98454 EKG, Interpretation Only Completed 04/11/2017 92882 Moderate Sedation Services; Same Phys Intl 15 Mins; PT Completed >=5 Years 03/28/2017 42086 EKG Tracing & Interpretation Completed 03/16/2017 32926 Implantable Cardio System Loop Recorder Sys Remota Data Completed Acquistio 03/16/2017 28722 Interrogation Dev Loop Recorder Incl Physician Completed Analysis,Rev,Repor 03/08/2017 54405 EKG Tracing & Interpretation Completed 03/08/2017 76291 EKG Tracing & Interpretation Completed 03/08/2017 64336 EKG Tracing & Interpretation Completed 03/08/2017 32579 EKG Tracing & Interpretation Completed 02/28/2017 58719 EKG Tracing & Interpretation Completed 02/28/2017 54095 EKG Tracing & Interpretation Completed 02/19/2017 95754 EKG Tracing & Interpretation Completed 02/19/2017 20846 EKG Tracing & Interpretation Completed 02/15/2017 16013 EKG Tracing & Interpretation Completed 02/13/2017 28574 Implantable Cardio System Loop Recorder Sys Remota Data Completed Acquistio 02/13/2017 92318 Interrogation Dev Loop Recorder Incl Physician Completed Analysis,Rev,Repor 01/22/2017 28642 EKG Tracing & Interpretation Completed 01/13/2017 18156 Implantable Cardio System Loop Recorder Sys Remota Data Completed Acquistio 01/13/2017 36729 Interrogation Dev Loop Recorder Incl Physician Completed Analysis,Rev,Repor 12/13/2016 63804 Interrogation Dev Loop Recorder Incl Physician Completed Analysis,Rev,Repor 12/13/2016 82033 Implantable Cardio System Loop Recorder Sys Remota Data Completed Acquistio 11/12/2016 99209 Implantable Cardio System Loop Recorder Sys Remota Data Completed Acquistio 11/12/2016 12479 Interrogation Dev Loop Recorder Incl Physician Completed Analysis,Rev,Repor 10/11/2016 30407 Implant Cardiac Loop Recorder Completed 10/02/2016 33816 Sleep Study Unattended,HRT Rate,Oxygen Sat,Resp Completed Effort/Airflow 08/31/2016 82676 EKG Tracing & Interpretation Completed 08/06/201697999 Inject/Drain Joint/Bursa Major W/O US Completed 08/03/2016 64189 EKG Tracing & Interpretation Completed 06/29/2016 01374 EKG, Interpretation Only Completed 06/29/2016 11230 Cardioversion Completed 06/28/201681544 Inject/Drain Joint/Bursa Major W/O US Completed 06/18/201616498 Inject/Drain Joint/Bursa Major W/O US Completed 06/07/2016 48353 EKG Tracing & Interpretation Completed 05/22/2016 36477 Stress Test Completed 05/22/2016 91645 Myocardial Perfusion Imaging Tomographic (Spect) Completed Multiple Studies 03/25/2016 78774 Holter Monitor Review (24 hr)dr review & interp only Completed 03/21/2016 39809 ECG Monitor/Recording W/Visual Superimposition Scanning Completed 03/16/2016 47196 EKG Tracing & Interpretation Completed 03/02/201656176 Inject/Drain Joint/Bursa Major W/O US Completed 02/20/201693445 Injection Single Tendon Origin/Insertion Completed 02/10/2016 15457 Injection Single Tendon Origin/Insertion Completed 12/13/2015 57914 EKG Tracing & Interpretation Completed 11/30/2015 21434 Color Flow Doppler/Interp & Reprt Completed 11/30/2015 66397 Pulse Wave/Continuous-Interp.RPT Completed 11/30/2015 59025 Echocardiography, Transesophageal, Real Time W/Image 2D Completed W/W/O M-M 11/30/2015 44159 EKG, Interpretation Only Completed 11/30/2015 48458 Cardioversion Completed 06/27/201525127 Inject/Drain Joint/Bursa Major W/O US Completed 07/20/2014 84647 ECHO Transthorasic Realtime 2D W Doppler & Color Flow Completed Hosp 07/19/2014 32657 EKG, Interpretation Only Completed Encounters Type Date Location Provider CPT E/M Dx Office Visit 09/06/2017 [facility] Kristen Ceballos N.P. 23058 I48.1 3:30p Gambling Counsellor Z95.818 I25.119 I10 Z01.810 M87.051 M70.61 Office Visit 09/06/2017 1:45p [facility] Shantell Dyer M.D. 70552 M16.11 C.M.A. M87.051 M70.61 M25.551 Office Visit 08/22/2017 2:00p [facility] Kristen Ceballos, 50688 Z95.818 [facility] N.P. I48.91 I10 Office Visit 07/30/2017 9:30a [facility] Kristen Ceballos, 03837IVP I10 [facility] N.P. I48.1 Office Visit 07/09/2017 11:30a [facility] Patricia Galeas M.D. 54420 I48.1 Gambling Counsellor Office Visit 07/03/2017 10:13a [facility] Denise [facility], 63091 I48.91 Hospitalists [employer] MECHANIC M54.12 I10 Office Visit 07/02/2017 10[facility] [place] [address] I48.91 Assoc,pc Hospitalists N.P. M54.12 I10 Office Visit 06/24/2017 1:50p [facility] Patricia Galeas M.D. 61192 Z01.810 [facility] I48.0 I25.119 R06.02 M50.821 Office Visit 06/19/2017 2:30p [facility] Jeffery Blanchard, 73817 M47.812 Of Charlee Christopher Office Visit 04/29/2017 12:15p [facility] Patricia Galeas M.D. 00961 I48.0 [facility] R06.02 G47.33 I25.119 Office Visit 03/28/2017 2:30p [facility] Kandice Galeas M.D. 13086 I48.1 Charlee R06.02 Z95.818 Office Visit 02/19/2017 1:30p [facility] Of CHERELLE Quintana 06502 I48.0 R06.02 Z95.818 Office Visit 02/15/2017 2:45p [facility] Patricia Galeas M.D. 67478 I48.0 Charlee G47.33 I25.10 R06.02 Office Visit 02/12/2017 1:00p [facility] Noemí Draper, 25412 G47.33 Services Of Gambling Counsellor SAYRA, RN, GRAPHOTYPE OPERATOR-BC G47.14 F40.240 Office Visit 01/28/2017 3:20p [facility] Jeffery Blanchard 96311 M47.812 Of [facility] M.D. Office Visit 01/22/2017 8:45a [facility] Of Gonzalez GalanKarla Valderrama, 09875 I47.2 [facility] DO FAC I25.2 I25.10 I48.0 Office Visit 12/12/2016 1:15p [facility] Noemí Draper, 41119 G47.33 Services Of [facility] JORDY COLBERT, [facility] Office Visit 12/04/2016 2:30p [facility] Patricia Galeas M.D. 23318 H81.10 [facility] G62.9 R60.0 I48.0 R42 Office Visit 11/26/2016 1:30p [facility] Jeffery Blanchard 01878 M50.821 Of [facility] M.D. Office Visit 11/05/2016 1:00p [facility]surgery Services Kimi Hurt PA-C 34732 M54.12 Of [facility] Office Visit 10/31/2016 1:15p [facility] Noemí Draper, 57875 G47.33 Services Of [facility] JORDY COLBERT, [facility] G47.10 F40.240 Office Visit 10/22/2016 2:00p [facility] Of Jah Parsons, 99569 M47.22 Familia ROBERTSON M75.52 Office Visit 10/12/2016 2:15p [facility] Shantell Dyer M.D. 75988 M25.512 Leslie.MJessica M75.42 S46.012A Office Visit 09/28/2016 2:30p [facility] Shant[facility] D[facility] M.D. 00851 M25.512 Leslie.Edgar M75.42 S46.012A Office Visit 09/24/2016 2:45p [facility] [place] [address] R06.83 Services Of [facility] G47.10 R51 R45.1 R55 Office Visit 08/31/2016 1:00p [facility] Patricia Galeas M.D. 71669 R55 I48.0 R32 Office Visit 08/24/2016 1:45p [facility] Shantell Dyer M.D. 27614 M25.512 C.M.A. M75.42 S46.012A Office Visit 08/06/2016 3:00p [facility] Shantell Dyer M.D. 87742 M25.512 C.M.A. M75.42 S46.012A W19.xxxA M87.051 M87.052 M25.551 M25.552 Office Visit 08/03/2016 2:30p [facility] CHERELLE Orona 52419 I48.0 M25.511 M25.551 M25.512 Office Visit 07/06/2016 2:30p [facility] Shantell Dyer M.D. 83833 M25.551 C.M.A. M70.61 Office Visit 06/28/2016 2:00p [facility] Nadja Carreon 36975 M25.511 Of CEthan VILLARREAL S46.011A Office Visit 06/18/2016 1:15p [facility] Shantell Dyer M.D. 54887 M25.552 C.M.A. M25.551 M70.61 M70.62 M25.511 M25.512 M75.41 M75.42 Office Visit 06/07/2016 3:15p [facility] Patricia Galeas M.D. 33020 I48.1 [facility] R06.02 G47.9 I25.10 Office Visit 05/08/2016 1:30p [facility] Patricia Galeas M.D. 27725 R09.02 [facility] I48.1 Z68.31 I25.10 Office Visit 03/19/2016 2:15p [facility] Shantell Dyer M.D. 51741 M79.604 C.M.A. M79.605 Office Visit 03/16/2016 2:00p [facility] CHERELLE Orona 06656 I48.91 R09.02 Office Visit 03/02/2016 2:00p [facility] Shantell Dyer M.D. 96645 M65.221 C.M.A. M25.512 M25.511 M75.41 M75.42 Office Visit 02/10/2016 11:15a [facility] Shantell Dyer M.D. 61893 M25.551 C.M.A. M25.552 M16.11 M70.61 M70.62 Office Visit 12/13/2015 4:00p [facility] Patricia Galeas M.D. 05434 I48.0 [facility] I25.10 I10 E78.2 R06.01 G47.9 Office Visit 12/07/2015 8:00a [facility] Shantell Dyer M.D. 64937 M54.5 C.M.A. Office Visit 11/30/2015 7:54a [facility], Jad Yu, 67686 I48.91 Hospitalists Ashwin I25.10 E87.6 I10 Office Visit 11/30/2015 3:52p [facility] Patricia Galeas M.D. 15312 I48.0 Gambling Counsellor Office Visit 11/29/2015 7:54a [facility], Jad Yu, 01294 I48.91 Hospitalists Ashwin I25.10 E87.6 I10 Office Visit 07/25/2015 9:45a [facility] Shantell Dyer M.D. 39502 M16.11 C.M.A. M70.61 M25.551 B02.8 Office Visit 07/04/2015 12:45p [facility] Shantell Dyer M.D. 34219 M16.11 C.M.A. M70.61 M25.551 Office Visit 06/27/2015 10:00a [facility] Shantell Dyer M.D. 20074 M16.11 C.M.A. M70.61 M25.551 Office Visit 07/20/2014 8:57a [facility], Kristen Ceballos, 61550 558.9 Hospitalists N.P. 427.31 414.00 276.8 Office Visit 07/19/2014 8:57a [facility], Kristen Ceballos, 49680 558.9 Hospitalists N.P. 427.31 414.00 276.8 Plan of Care Future Appointment(s):10/25/2017 1:45 pm - Shantell Dyer M.D. at [facility]11/08/2017 11:00 am - Patricia [facility]as M.D. at [facility] [place] [facility] [place] 3:30 pm - Shantell Dyer M.D. 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
--- OUTSIDE RECORDS SUMMARY | 2017-10-15 12:29 | XMS REPORT ---
:1945 External Reference #:[id number] Author Organization [place] [email or web address] Address [address] [place] [address] Phone [phone] Care Team Providers Name Role Phone Humberto Milner MD Primary Care Physician Unavailable Payers Type Date Identification Numbers Payment Provider Subscriber Health Maintenance Policy Number: [facility] Douglas Lu [facility] ([facility]) [id number] PayID: [id number] [address] [address] [place] [address] Problems Date Description Provider Status Onset: 06/27/2015 Localized, primary osteoarthritis Shantell Dyer M.D. Active of the pelvic region and thigh Onset: 07/25/2015 Zoster with other complications Shantell Dyer M.D. Active Onset: 12/07/2015 Low back pain Shantell Dyer M.D. Active Onset: 12/13/2015 Paroxysmal atrial fibrillation Patricia Galeas M.D. Active Onset: 12/13/2015 Coronary arteriosclerosis in Patricia Galeas M.D. Active [place] artery Onset: 12/13/2015 Essential hypertension Patricia Galeas [...] apnea syndrome Noemí Draper DNP, RN, Active SLEEP SCIENTIST-BC Onset: 10/31/2016 Hypersomnia Noemí Draper DNP, RN, Active SLEEP SCIENTIST-BC Onset: 11/26/2016 Cervical disc disorder Jeffery Blanchard M.D. Active Onset: 12/04/2016 Inflammatory and toxic neuropathy Patricia Galeas M.D. 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 Active Onset: 06/24/2017 Preoperative cardiovascular Patricia Galeas M.D. 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 Active art w unsp ang pctrs Onset: 08/09/2017 Convalescence after surgery Jeffery Blanchard M.D. 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 days Xarelto 09/10 Active Tablets 20mg 90tab 1 by mouth s every day Ashwin Galeas Restless Leg 09/06 Active qd Ashwin Blanchard Cartia XT 09/06 Active Caps ER 120mg 30cap Take 1 by I10 Kristen 24HR s mouth daily Foster, with the N.P. 240mg for a total of 360mg Diltiazem HCL 07/09 Active Tablets 60mg 90tab 1/2 tab PO I48.1 s Am 1 Naranjito, tablets at M.D. lunch and 1/2 tablets PM Hydrocodone-Acetam 07/08 Active Tablets 7.5-325mg 28tab take one s tab by Lo, mouth every M.DKarla 8 hours as needed for pain Propafenone HCL 02/28 Active Tablets 225mg 180ta 1 tab by Patricia bs mouth twice Naranjito, a day M.DKarla Cartia XT 01/22 Active Caps ER 240mg 90cap 1 by mouth 24HR s every day Ashwin Galeas Cpap Active Device using while Unknown /0000 sleeping (not as much as she should be per patient) [place] 07/03 Hx Tablets 5-325mg 60tab Wtake 1-2 s tabs by Lo, - mouth every M.D. 07/08 4-6 hours /2017 as needed for pain. Propafenone HCL 02/19 Hx Tablets 225mg 60tab 1 tab po I48.0 s twice a day Gudelia, - (waiting to Ashwin 02/18 start after ECG 02/19/17- has not been sent to pharmacy yet) Metoprolol 02/15 Hx Tablets 50mg 90tab 1/2 by I47.2 Patricia Succinate ER 24HR s mouth every Naranjito, - day ( M.D. 04/29 medication change 04/26/17) Metoprolol 01/22 Hx Tablets 25mg 90tab 1 by mouth I47.2 Patricia Succinate ER 24HR s every day [place]aranj[place], - PM M.D. 02/15 Demadex 01/03 Hx Tablets 20mg 90tab t ablet prn s swelling, [place]aranjito, - previously M.D. 08/14 1 tablet PO /2017 3 days weekly and as recommended by ( Pt has not taken ) Lasix 11/30 Hx Tablets 20mg 30tab 1 by mouth Patricia s q day x 2 [place], - with M.D. 01/03 potassium then prn Klor-Con M10 11/30 Hx Tablets 10Meq 60tab 2 tab by Patricia ER s mouth with Gudelia, - demadex M.D. 09/05 afterrnoon ( Takes 2 tablets prn when takes Torsemide) ( pt has not taken) Medrol 10/22 Hx Tablets 4mg 21tab take as M54.12 Jah s directed F - per dosepacasimiro Parsons, 11/05 instruction s Methylprednisolone 09/28 Hx TBPK 4mg 1unit take as M25.512 Shantell s directed Gomez, - M.DKarla 11/05 Meloxicam 08/06 Hx Tablets 15mg 60tab 1 by mouth M75.42 Shantell s every day Gomez, - M.D. 08/30 Hydrocodone-Acetam 06/28 Hx Tablets 7.5-325mg 30tab take one M25.511 Shantell inophen s tab by Gomez, - mouth every M.D. 09/23 4 hours needed for pain Sotalol HCL 06/07 Hx Tablets 80mg 180ta 1 tab by I48.1 Patricia bs mouth twice Gudelia, - a day M.D. 02/15 Xarelto 06/06 Hx Tablets 15mg 30tab 1 by mouth David s every day F. - at night Mauser, 09/10 M.D. Cyclobenzaprine 03/19 Hx Tablets 10mg 40tab 1 tablet by M79.604 Shantell HCL s mouth q8 Gomez, - hours as M.D. 06/19 needed muscle spasms (Pt not taking) [place] Hx Tablets 10-325mg 1-2 by Unknown /0000 mouth - q4-6hr as 12/05 needed Valtrex Hx Tablets 500mg 1 by mouth Unknown /0000 twice a day - x 5 days 12/05 Diltiazem CD Hx Caps ER 240mg 1 by mouth Unknown /0000 24HR every day - 12/05 Aspirin Hx Tablets 81mg 1 by mouth Unknown /0000 every day - 12/05 Metoprolol Hx Tablets 50mg 90tab 1 by mouth I48.1 Patricia Tartrate /0000 s daily Naranjito, - M.D. 06/07 Cartia XT Hx Caps ER 300mg 90cap 1 by mouth Patricia /0000 24HR s every day Naranjito, - Am M.D. 01/22 (Rivaroxaban) Hx 20mg one daily Patricia Xarelto /0000 at hs [place]aranjito, - M.D. 06/06 Magnesium Oxide Hx Capsules 400mg by mouth Unknown /0000 every day - 05/08 Restful Legs Hx Tablets 4 tablet Unknown /0000 - 02/14 G Hx Quick 4 tablet po Unknown /0000 Disolve morning - daily 08/14 ( 4 tablet evening if needed ) ( Pt has not taken) Ibuprofen Hx Capsules 200mg 4 tablet po Unknown /0000 1-2 times - daily ( Pt 09/05 does not take) Medications Administered in Office Medication Date Status Form Strength Qnty SIG Indications Ordering Provider Inj, Administered Injection José Miguel Mark Regadenoson, 018 Demond, 0.1 MG Ashwin, PATITO, FASCHRISSY Technetium TC Administered Injection José Miguel Flores 99M 018 Carleen Lagos M.D., FACLeslie, Per Unit Dose FASNC Up To 40 Millicuries Depomedrol Administered Injection Shantell 40MG Sawyer Dyer M.D. Depomedrol Administered Injection Nadja B 40MG CHERELLE Garrido Depomedrol Administered Injection Shantell 40MG Sawyer Dyer M.D. Depomedrol Administered Injection Shantell 40MG Sawyer Dyer M.D. Technetium TC Administered Injection José Miguel Flores 99M 017 Carleen Lagos M.D., [facility], Per Unit Dose FASNC Up To 40 Millicuries Depomedrol Administered Injection Shantell 40MG Catherine Dyer M.D. Depomedrol Administered Injection Shantell 40MG 016 Ashwin Dyer Depomedrol Administered Injection Shantell 40MG 016 Ashwin Dyer Depomedrol Administered Injection Shantell 40MG Catherine Dyer M.D. Vital Signs Date Vital Result Comment 10/02/2017 [...] Test Date Test Result H/L Range Note Inr/Protime 10/02/2017 Inr 1.10 High 0.77-1.02 1 Laboratory test 10/02/2017 Partial Thrombo 35.1 seconds 26.0-36.3 1, 2 finding Time PTT Basic Metabolic Panel 10/02/2017 Sodium 141 mmol/L 135-145 1 Potassium 4.2 mmol/L 3.5-5.0 1 Chloride 104 mmol/L 101-111 1 Co2 Carbon Dioxide 29 mmol/L 22-32 1 Anion Gap 8 mmol/L 2-11 1 Glucose 123 mg/dL High 70-100 1 Blood Urea Nitrogen 15 mg/dL 6-24 1 Creatinine 0.99 mg/dL High 0.51-0.95 1 BUN/Creatinine Ratio 15.2 8-20 1 Calcium 9.8 mg/dL 8.6-10.3 1 Egfr Non- 55.1 >60 1 Egfr 70.9 >60 1, 3 Urinalysis Profile 10/02/2017 Urine Color Yellow 1 Urine Appearance Clear 1 Urine Specific [place] 1.020 1.010-1.030 1 Urine pH 5.0 5-9 1 Urine Urobilinogen Negative Negative 1 Urine Ketones Negative Negative 1 Urine Protein Negative Negative 1 Urine Leukocytes Negative Negative 1 Urine Blood Negative Negative 1 Urine Nitrite Negative Negative 1 Urine Bilirubin Negative Negative 1 Urine Glucose Negative Negative 1 Type & Screen 10/02/2017 Patient Blood Type O Negative 1 Antibody Screen NEGATIVE 1 Urine Culture And 10/02/2017 Urine Culture SEE RESULT BELOW 1, 4 Sensitivities CBC No Diff 06/25/2017 White Blood Count [...] Egfr Non- 65.7 >60 Egfr 84.5 >60 5 Laboratory test finding 06/25/2017 TSH (Thyroid Stim [...] Egfr Non- 86.5 >60 Egfr 111.3 >60 6 Laboratory test finding 04/11/2017 B-Type Natriuretic 178 pg/mL High 7 Peptide BNP Laboratory test finding 01/22/2017 Magnesium 2.0 mg/dL 1.9-2.7 Basic Metabolic Panel 01/22/2017 Sodium 139 mmol/L 133-145 Potassium 4.1 mmol/L 3.5-5.0 Chloride 104 mmol/L 101-111 Co2 Carbon Dioxide 26 mmol/L 22-32 Anion Gap 9 mmol/L 2-11 Glucose 103 mg/dL High 70-100 Blood Urea Nitrogen 16 mg/dL 6-24 Creatinine 0.70 mg/dL 0.51-0.95 BUN/Creatinine Ratio 22.9 High 8-20 Calcium 9.5 mg/dL 8.6-10.3 Egfr Non- 82.5 >60 Egfr 106.1 >60 8 Laboratory test finding 06/29/2016 Magnesium 2.0 mg/dL 1.9-2.7 CBC Auto Diff [...] 0-2 Nucleated Red Blood Cells % 0 Basic Metabolic Panel 06/29/2016 Sodium 131 mmol/L Low 133-145 Potassium 4.3 mmol/L 3.5-5.0 Chloride 101 mmol/L 101-111 Co2 Carbon Dioxide 23 mmol/L 22-32 Anion Gap 7 mmol/L 2-11 Glucose 111 mg/dL High 70-100 Blood Urea Nitrogen 21 mg/dL 6-24 Creatinine 0.64 mg/dL 0.51-0.95 BUN/Creatinine Ratio 32.8 High 8-20 Calcium 9.1 mg/dL 8.6-10.3 Egfr Non- 91.5 >60 Egfr 117.6 >60 9 Arthritis Panel 06/20/2016 Uric Acid 5.4 mg/dL 2.3-6.6 Erythrocyte Sed Rate 11 mm/Hr 0-40 Rheumatoid Factor <15 IU/mL <15 10 Anti-Nuclear Antibody 0.2 U 11 Cyclic Citrullinated Peptide <15.6 U 12 Interpretation See Comment 13 1 AA 10/15 2 AA 10/15 3 Because ethnic data is not always readily [...] 15-29 5 Kidney failure <15 (or dialysis) 4 SEE RESULT BELOW Name: ZAYNABMARBELLA : [address]: Shantell Dyer MD Acct: [id number] Unit: [id number] AGE: 72 Location: [facility] Re10/02/17 SEX: F Status: REG REF SPEC: [id number] JUWAN: 10/02/17-0 [facility] DR: Shantell Dyer MD REQ: [id number] RECD: 10/02/17 STATUS: COMP _ SOURCE: URINE SPDESC: ORDERED: Urine Culture COMMENTS: SHANA 10/15 QUERIES: Urine Source: Clean Catch Procedure Result Reported Site Urine Culture Final 10/04/17- 0749 ML Organism 1 ESCHERICHIA COLI [place] Count >100,000 (Many) CFU/ML 1. ESCHERICHIA COLI M.I.C. RX --------- ------ Ampicillin 4 S Cefazolin <=4 S Cefepime <=1 S Ceftriaxone <=1 S Ciprofloxacin <=0.25 S Gentamicin <=1 S Levofloxacin <=0.12 S Meropenem <=0.25 S Nitrofurantoin <=16 S Tetracycline <=1 S Pipercillin/Tazobactam <=4 S Trimethoprim/Sulfamethoxazole <=20 S Amoxicillin/Clavulanic Acid <=2 S Aztreonam <=1 S Contact the Microbiology Department for any additional antibiotic reporting. * [facility] - Main Lab . END OF REPORT DEPARTMENT OF PATHOLOGY, [address] [place] [address] Nathaniel De León M.D. Director [facility] # [id number] 5 Because ethnic data is not always [...] 5 Kidney failure <15 (or dialysis) 6 Because ethnic data is not always readily [...] 15-29 5 Kidney failure <15 (or dialysis) 7 >100 to <200 pg/mL: likely compensated congestive heart failure (CHF) 200 to 400 pg/mL: likely moderate CHF >400 pg/mL: likely moderate to severe CHF 8 Because ethnic data is not always readily [...] 15-29 5 Kidney failure <15 (or dialysis) 9 Because ethnic data is not always readily [...] 15-29 5 Kidney failure <15 (or dialysis) 10 Test Performed by: [facility] - [address] [address] 11 REFERENCE VALUE <=1.0 (Negative) 12 REFERENCE VALUE <20.0 (Negative) 13 Tests for antibodies to dsDNA and BILL antigens are not performed automatically unless the KRYSTEN result is > or= 3.0 U. Studies performed at [facility] indicate that positive KRYSTEN results <3.0 U are rarely accompanied by positive second order tests. Test Performed by: [facility] - [address] [address] Procedures Date CPT Code Description Status 09/06/2017 66565 EKG Tracing & Interpretation Completed 08/22/2017 76661 EKG Tracing & Interpretation Completed 08/22/2017 73796 EKG Tracing & Interpretation Completed 08/18/2017 44919 Implantable Cardio System Loop Recorder Sys Remota Data Completed Acquistio 08/18/2017 04663 Interrogation Dev Loop Recorder Incl Physician Completed Analysis,Rev,Repor 08/15/2017 21294 Moderate Sedation Services; Same Phys Intl 15 Mins; PT Completed >=5 Years 08/15/2017 17945 Cardioversion Completed 07/30/2017 18683 EKG Tracing & Interpretation Completed 07/18/2017 18340 Implantable Cardio System Loop Recorder Sys Remota Data Completed Acquistio 07/18/2017 28896 Interrogation Dev Loop Recorder Incl Physician Completed Analysis,Rev,Repor 07/09/2017 38129 EKG Tracing & Interpretation Completed 07/02/2017 20038 Anterior Instrumentation 2-3 Vertebral Segments Completed 07/02/2017 90046 Anterior Instrumentation 2-3 Vertebral Segments Completed 07/02/2017 14030 arthrodesis,anterior interbody incl disc space Completed prep,discectomy,de 07/02/2017 04321 arthrodesis,anterior interbody incl disc space Completed prep,discectomy,de 07/02/2017 12802 Allograft For Spine Surgery,Structural (Bone Bank) Completed 06/25/2017 03682 Pulmonary Function><Bronchodil Completed 06/24/2017 74727 EKG Tracing & Interpretation Completed 06/17/2017 97785 Implantable Cardio System Loop Recorder Sys Remota Data Completed Acquistio 06/17/2017 20212 Interrogation Dev Loop Recorder Incl Physician Completed Analysis,Rev,Repor 05/28/2017 88064 Myocardial Perfusion Imaging Tomographic (Spect) Completed Multiple Studies 05/28/2017 91494 Stress Test Completed 05/17/2017 48543 ECHO Transthoracic, Real-Time 2D With Doppler And Color Completed Flow 05/17/2017 19174 ECHO Transthoracic, Real-Time 2D With Doppler And Color Completed Flow 05/17/2017 88718 Implantable Cardio System Loop Recorder Sys Remota Data Completed Acquistio 05/17/2017 86653 Interrogation Dev Loop Recorder Incl Physician Completed Analysis,Rev,Repor 04/29/2017 96236 EKG Tracing & Interpretation Completed 04/16/2017 06563 Implantable Cardio System Loop Recorder Sys Remota Data Completed Acquistio 04/16/2017 44928 Interrogation Dev Loop Recorder Incl Physician Completed Analysis,Rev,Repor 04/11/2017 45858 Cardioversion Completed 04/11/2017 98179 EKG, Interpretation Only Completed 04/11/2017 86399 Moderate Sedation Services; Same Phys Intl 15 Mins; PT Completed >=5 Years 03/28/2017 73778 EKG Tracing & Interpretation Completed 03/16/2017 77677 Implantable Cardio System Loop Recorder Sys Remota Data Completed Acquistio 03/16/2017 42030 Interrogation Dev Loop Recorder Incl Physician Completed Analysis,Rev,Repor 03/08/2017 28234 EKG Tracing & Interpretation Completed 03/08/2017 46610 EKG Tracing & Interpretation Completed 03/08/2017 26170 EKG Tracing & Interpretation Completed 03/08/2017 86358 EKG Tracing & Interpretation Completed 02/28/2017 82261 EKG Tracing & Interpretation Completed 02/28/2017 29160 EKG Tracing & Interpretation Completed 02/19/2017 93034 EKG Tracing & Interpretation Completed 02/19/2017 73831 EKG Tracing & Interpretation Completed 02/15/2017 07456 EKG Tracing & Interpretation Completed 02/13/2017 93562 Implantable Cardio System Loop Recorder Sys Remota Data Completed Acquistio 02/13/2017 85234 Interrogation Dev Loop Recorder Incl Physician Completed Analysis,Rev,Repor 01/22/2017 32829 EKG Tracing & Interpretation Completed 01/13/2017 76008 Implantable Cardio System Loop Recorder Sys Remota Data Completed Acquistio 01/13/2017 81498 Interrogation Dev Loop Recorder Incl Physician Completed Analysis,Rev,Repor 12/13/2016 72307 Interrogation Dev Loop Recorder Incl Physician Completed Analysis,Rev,Repor 12/13/2016 51087 Implantable Cardio System Loop Recorder Sys Remota Data Completed Acquistio 11/12/2016 57809 Implantable Cardio System Loop Recorder Sys Remota Data Completed Acquistio 11/12/2016 65948 Interrogation Dev Loop Recorder Incl Physician Completed Analysis,Rev,Repor 10/11/2016 25487 Implant Cardiac Loop Recorder Completed 10/02/2016 62660 Sleep Study Unattended,HRT Rate,Oxygen Sat,Resp Completed Effort/Airflow 08/31/2016 04480 EKG Tracing & Interpretation Completed 08/06/2016 57929 Inject/Drain Joint/Bursa Major W/O US Completed 08/03/2016 88831 EKG Tracing & Interpretation Completed 06/29/2016 17731 EKG, Interpretation Only Completed 06/29/2016 31067 Cardioversion Completed 06/28/2016 70841 Inject/Drain Joint/Bursa Major W/O US Completed 06/18/2016 10724 Inject/Drain Joint/Bursa Major W/O US Completed 06/07/2016 09649 EKG Tracing & Interpretation Completed 05/22/2016 50662 Stress Test Completed 05/22/2016 86697 Myocardial Perfusion Imaging Tomographic (Spect) Completed Multiple Studies 03/25/2016 71591 Holter Monitor Review (24 hr)dr review & interp only Completed 03/21/2016 83810 ECG Monitor/Recording W/Visual Superimposition Scanning Completed 03/16/2016 62835 EKG Tracing & Interpretation Completed 03/02/201687202 Inject/Drain Joint/Bursa Major W/O US Completed 02/20/201659987 Injection Single Tendon Origin/Insertion Completed 02/10/201612373 Injection Single Tendon Origin/Insertion Completed 12/13/2015 25063 EKG Tracing & Interpretation Completed 11/30/2015 32242 Color Flow Doppler/Interp & Reprt Completed 11/30/2015 37024 Pulse Wave/Continuous-Interp.RPT Completed 11/30/2015 11155 Echocardiography, Transesophageal, Real Time W/Image 2D Completed W/W/O M-M 11/30/2015 24636 EKG, Interpretation Only Completed 11/30/2015 34283 Cardioversion Completed 06/27/2015 24047 Inject/Drain Joint/Bursa Major W/O US Completed 07/20/2014 66137 ECHO Transthorasic Realtime 2D W Doppler & Color Flow Completed Hosp 07/19/2014 91604 EKG, Interpretation Only Completed Encounters Type Date Location Provider CPT E/M Dx Office Visit 09/06/2017 [facility] Kristen AdamaKarla Ceballos, N.P. 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 46642 M16.11 C.M.A. M87.051 M70.61 M25.551 Office Visit 08/22/2017 2:00p [facility] Kristen AdamaKarla Ceballos, 12643 Z95.818 [employer] N.P. 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 I48.1 Office Visit 07/09/2017 11:30a [facility] Of Particia Galeas M.D. 95815 I48.1 [facility] Office Visit 07/03/2017 10:13a [facility] Denise Antunez, 12026 I48.91 Hospitalists LATHE SPOTTER M54.12 I10 Office Visit 07/02/2017 10:12a [facility] Grant Gomez, 15778 I48.91 Assoc,pc Hospitalists N.P. M54.12 I10 Office Visit 06/24/2017 1:50p [facility] Patricia Galeas M.D. 64111 Z01.810 [facility] I48.0 I25.119 R06.02 M50.821 Office Visit 06/19/2017 2:30p [facility] Jeffery Blanchard 73122 M47.812 Of Charlee Christopher Office Visit 04/29/2017 12:15p [facility] Patricia Galeas M.D. 87115 I48.0 [facility] R06.02 G47.33 I25.119 Office Visit 03/28/2017 2:30p [facility] Patricia Galeas M.D. 71643 I48.1 [facility] R06.02 Z95.818 Office Visit 02/19/2017 1:30p [facility] CHERELLE Orona 36057 I48.0 R06.02 Z95.818 Office Visit 02/15/2017 2:45p [facility] Patricia Galeas M.D. 69859 I48.0 [facility] G47.33 I25.10 R06.02 Office Visit 02/12/2017 1:00p [facility] Noemí Draper, 31071 G47.33 Services Of [facility] SAYRA, RN, SLEEP SCIENTIST- G47.14 F40.240 Office Visit 01/28/2017 3:20p [facility] Jeffery Blanchard 26531 M47.812 Of Charlee Christopher Office Visit 01/22/2017 8:45a [facility] Gonzalez Valderrama, 56950 I47.2 [facility] DO FAC I25.2 I25.10 I48.0 Office Visit 12/12/2016 1:15p [facility] Noemí Draper, 45794 G47.33 Services Of [facility] JORDY COLBERT, [facility] Office Visit 12/04/2016 2:30p [facility] Patricia Galeas M.D. 17388 H81.10 [facility] G62.9 R60.0 I48.0 R42 Office Visit 11/26/2016 1:30p [facility] Jeffery Blanchard, 64765 M50.821 Of [facility] M.D. Office Visit 11/05/2016 1:00p Neurosurgery Services Kimi Hurt PA-C 49968 M54.12 Of [facility] Office Visit 10/31/2016 1:15p [facility] Sleep Noemí Draper, 83973 G47.33 Services Of [facility] JORDY COLBERT, [facility] G47.10 F40.240 Office Visit 10/22/2016 2:00p [facility] Of Jah Parsons, 14248 M47.22 Familia ROBERTSON M75.52 Office Visit 10/12/2016 2:15p [facility] Of Shantell Dyer M.D. 47075 M25.512 C.M.A. M75.42 S46.012A Office Visit 09/28/2016 2:30p [facility] Shantell Dyer M.D. 34652 M25.512 C.MKarlaAKarla M75.42 S46.012A Office Visit 09/24/2016 2:45p Pulmonology [place] [address] R06.83 Services Of [facility] G47.10 R51 R45.1 R55 Office Visit 08/31/2016 1:00p [facility] Patricia Galeas M.D. 50404 R55 I48.0 R32 Office Visit 08/24/2016 1:45p [facility] Shantell Dyer M.D. 33609 M25.512 C.MJessica M75.42 S46.012A Office Visit 08/06/2016 3:00p [facility] Shantell Dyer M.D. 59077 M25.512 C.M.A. M75.42 S46.012A W19.xxxA M87.051 M87.052 M25.551 M25.552 Office Visit 08/03/2016 2:30p [facility] CHERELLE Orona 68964 I48.0 M25.511 M25.551 M25.512 Office Visit 07/06/2016 2:30p [facility] Of Shantell Dyer M.D. 96871 M25.551 C.M.A. M70.61 Office Visit 06/28/2016 2:00p Orthopedic Services Nadja Carreon, 08065 M25.511 Of Familia VILLARREAL S46.011A Office Visit 06/18/2016 1:15p [facility] Of Shantell Dyer M.D. 94728 M25.552 C.M.A. M25.551 M70.61 M70.62 M25.511 M25.512 M75.41 M75.42 Office Visit 06/07/2016 3:15p [facility] Patricia Galeas M.D. 72021 I48.1 [facility] R06.02 G47.9 I25.10 Office Visit 05/08/2016 1:30p [facility] Patricia Galeas M.D. 75356 R09.02 [facility] I48.1 Z68.31 I25.10 Office Visit 03/19/2016 2:15p [facility] Of Shantell Dyer M.D. 13058 M79.604 C.M.A. M79.605 Office Visit 03/16/2016 2:00p [facility] CHERELLE Orona 20941 I48.91 R09.02 Office Visit 03/02/2016 2:00p [facility] Shantell Dyer M.D. 29928 M65.221 C.M.A. M25.512 M25.511 M75.41 M75.42 Office Visit 02/10/2016 11:15a [facility] Shantell Dyer M.D. 58412 M25.551 C.M.A. M25.552 M16.11 M70.61 M70.62 Office Visit 12/13/2015 4:00p [facility] Patricia Galeas M.D. 09648 I48.0 [facility] I25.10 I10 E78.2 R06.01 G47.9 Office Visit 12/07/2015 8:00a [facility] Shantell Dyer M.D. 03692 M54.5 C.M.A. Office Visit 11/30/2015 7:54a [facility], 32205 I48.91 Hospitalists MIsaiah I25.10 E87.6 I10 Office Visit 11/30/2015 3:52p [facility] Patricia Galeas M.D. 05311 I48.0 [employer] Office Visit 11/29/2015 7:54a [facility], Jad Kinta, 35612 I48.91 Hospitalists M.Kiana I25.10 E87.6 I10 Office Visit 07/25/2015 9:45a [facility] Shantell Dyer M.D. 32801 M16.11 C.M.A. M70.61 M25.551 B02.8 Office Visit 07/04/2015 12:45p [facility] Shantell Dyer M.D. 53678 M16.11 C.M.A. M70.61 M25.551 Office Visit 06/27/2015 10:00a [facility] Of Shantell Dyer M.D. [id number] M16.11 C.M.A. M70.61 M25.551 Office Visit 07/20/2014 8:57a [facility], Kristen Ceballos, [id number] 558.9 Hospitalists N.P. [phone] Office Visit 07/19/2014 8:57a [facility], Kristen Ceballos, [id number] 558.9 Hospitalists N.P. [phone] Plan of Care Future Appointment(s):10/15/2017 3:30 pm - Gurpreet Walton PA-C at [facility]10/15/2017 3:30 pm - CHERELLE Benson at [facility]10/25/2017 1:45 pm - Shantell Dyer M.D. at [facility]11/08/2017 11:00 am - Patricia Galeas M.D. at [facility] [place]10/15/2017 3:30 pm - Shantell Dyer M.D. at [facility]10/02/2017 - Shantell Dyer M.D.M25.551 Pain in right hipFollow up:Follow up: 2 weeks after loupfqwQ17.051 Idiopathic aseptic necrosis of right femur
[2017-10-15] MEDS ORDERED: Famotidine IV* 10 MG/ML 2 ML (20 mg) ONE (12:30)
[2017-10-15] MEDS ORDERED: ceFAZolin 2 GM PREMIX (*) 2 GM/50 ML BAG IVPB ONE (12:30)
[2017-10-15] MEDS ORDERED: Buffered Lidocaine 0.9% SYRIN* 5 ML/SYR SYRINGE ONE (12:31)
[2017-10-15 13:30] LABS: INR 0.93 (0.77-1.02)
[2017-10-15] MEDS ORDERED: Propofol* 10 MG/ML 20 ML BTL IV PUSH ONE (15:21)
[2017-10-15] MEDS ORDERED: Lidocaine 2% PF * 5 ML VIAL ONE (15:21)
[2017-10-15] MEDS ORDERED: KETAMINE HCL* 50 MG/ML 10 ML VIAL ONE (15:21)
[2017-10-15] MEDS ORDERED: Ondansetron INJ* 2 MG/ML VIAL ONE ×2 (15:21→15:55)
[2017-10-15] MEDS ORDERED: fentaNYL* 50 MCG/ML 2 ML VIAL (100 MCG VIAL) ONE (15:21)
[2017-10-15] MEDS ORDERED: Dexamethasone IV* 4 MG/ML 1 ML (4 MG) ONE (15:21)
[2017-10-15] MEDS ORDERED: Midazolam* 1 MG/ML 5 ML VIAL (5 MG) ONE (15:21)
[2017-10-15] MEDS ORDERED: Ketorolac INJ* 30 MG/ML 1 ML VIAL ONE (15:21)
[2017-10-15] MEDS ORDERED: Bupivacaine 0.5% SDV PF* 30ML VIAL ONE ×2 (15:24→18:17)
[2017-10-15] MEDS ORDERED: Cisatracurium* 2 MG/ML MDV 5 ML ONE (16:01)
[2017-10-15] MEDS ORDERED: EPHEDrine (Pressors)* 50 MG/ML VIAL ONE (16:09)
[2017-10-15] MEDS ORDERED: Phenylephrine INJ* 10 MG/ML 1 ML VIAL (10 MG) ONE (17:11)
[2017-10-15] MEDS ORDERED: fentaNYL* 50 MCG/ML 2 ML VIAL (100 MCG VIAL) IV PRN (17:19)
[2017-10-15] MEDS ORDERED: Naloxone* 0.4 MG/ML 1 ML VIAL IV PRN (17:19)
[2017-10-15] MEDS ORDERED: DiMENhydriNATE IV* 50 MG/ML VIAL IV PUSH PRN (17:19)
[2017-10-15] MEDS ORDERED: HYDROmorphone INJ* 0.5 MG/0.5 ML SYRINGE ONE ×2 (18:09→18:27)
--- NOTE | 2017-10-15 18:29 | RAD ---
Indication: Right hip replacement. Single view of the right hip demonstrates right hip replacement in satisfactory position. Pelvic ring is intact. IMPRESSION: Right hip replacement in satisfactory position.
[2017-10-15] MEDS ORDERED: Ondansetron TAB* 4 MG PO PRN (18:49)
[2017-10-15] MEDS ORDERED: Morphine VIAL* 4 MG/ML VIAL (1 ml vial) IV PRN ×2 (18:49)
[2017-10-15] MEDS ORDERED: Ondansetron INJ* 2 MG/ML VIAL IV PRN (18:49)
[2017-10-15] MEDS ORDERED: diPHENhydraMINE IV* 50 MG/ML 1 ml VIAL (BENADRYL) IV PRN (18:49)
[2017-10-15] MEDS ORDERED: Acetaminophen TAB* 325 MG PO PRN (18:49)
[2017-10-15] MEDS ORDERED: diPHENhydraMINE PO* 25 MG PO PRN (18:49)
[2017-10-15] MEDS ORDERED: Magnesium Hydroxide LIQ* 30 ML UDC PO PRN (18:49)
[2017-10-15] MEDS ORDERED: Cyclobenzaprine TAB* 10 MG PO PRN (18:49)
[2017-10-15] MEDS ORDERED: Torsemide TAB* 20 MG PO PRN (18:59)
[2017-10-15] MEDS ORDERED: Potassium Chlor TAB* 10 MEQ TAB.ER PO PRN (18:59)
[2017-10-15] MEDS ORDERED: HYDROcodone/ACETAMIN 5-325 MG* 1 TAB PO PRN (19:03)
--- NOTE | 2017-10-15 20:07 | RAD ---
Indication: Right hip arthroplasty. 2 views of the right hip demonstrates right hip arthroplasty in satisfactory position. No loosening is noted. IMPRESSION: Right hip arthroplasty in satisfactory position.
--- NOTE | 2017-10-15 20:08 | RAD ---
Indication: Right hip arthroplasty Single view of the pelvis demonstrates right hip arthroplasty in satisfactory position. Pelvic ring is intact. IMPRESSION: Right hip arthroplasty in satisfactory position.
[2017-10-15] MEDS ORDERED: PROPAFENONE HCL 225 MG PO SCH (21:00)
[2017-10-15] MEDS: Magnesium Hydroxide LIQ* 30 ML UDC PO SCH (23:20)
[2017-10-15] MEDS: Docusate CAP* 100 MG PO SCH (23:20)
[2017-10-16] MEDS: ceFAZolin 1 GM in Dextrose (*) 1 GM/50 ML BAG IVPB SCH ×3 (00:30→16:17)
--- NOTE | 2017-10-16 03:52 | CONS ---
CC: Dr. Milner; Dr. Galeas* CONSULTATION REPORT: DATE OF CONSULT: 10/15/17 PRIMARY CARE PROVIDER: Dr. Milner. FIRST RESPONDER: Dr. Galeas. REASON FOR CONSULT: Postop co-management, right total hip arthroplasty. History is obtained from interview with the patient, review of past medical records both of patient as well as Cardiology note. RELIABILITY: Good. HISTORY OF PRESENT ILLNESS: This is a 72-year-old female with past medical history of CAD; atrial fibrillation, on chronic anticoagulation; EVANGELINA, not entirely compliant with her CPAP; failed conservative management for right hip pain that did agitate her osteoarthritis and avascular necrosis, underwent a right total hip arthroplasty today with Dr. Dyer without complications. After this procedure, she was seen and indicates that her pain is relatively well controlled. She only wants hydrocodone for pain. She notes oxycodone makes her nauseous. I discussed her use of CPAP at home. She regularly uses it, but does use it occasionally. She has some trouble with the mask. Her most recent followup of Cardiology on 09/06/17, her Cartia dose was increased to 360 mg daily which she has been taking. She has had no difficulty with that increased dose of medication. She has no questions or concerns at the time of my consultation. PAST MEDICAL HISTORY: Includes history of CAD, she has had 3 stents, paroxysmal atrial fibrillation in 2016, chronic since 2017, on propafenone, hypertension, shingles, osteoarthritis, tuberculosis in childhood, sleep apnea diagnosed in September 2016, cervical disk replacement in 2018. ALLERGIES: LATEX, OXYCODONE, ASPIRIN, ADHESIVE and BAND-AIDS. FAMILY HISTORY: Heart disease. 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 She is a former smoker, quit in 2001. Occasionally drinks alcohol. REVIEW OF SYSTEMS: Negative for 14 points reviewed. PHYSICAL EXAM: Vitals: 140/48, heart rate 63, respiratory rate is 14, she is 96% on 2 L, T-max is 99 degrees Fahrenheit today. General: Sitting up in bed, interactive, pleasant, in no apparent distress. Oropharynx is clear. She has dry mucous membranes. Sclerae are anicteric. She has a regular rate and rhythm. Her lungs are clear to auscultation. Abdomen is soft, nontender, nondistended. Her right hip is tender, currently immobilized. She is neurovascularly intact distally. She has positive pulses. She is alert and oriented x3. Her cranial nerves II through XII are intact. She has no apparent anxiety, agitation or depression. DIAGNOSTIC STUDIES/LAB DATA: Reviewed, no labs obtained on day of visit except for INR of 0.93. Data reviewed: No data to review. ASSESSMENT AND PLAN: This is a 72-year-old female with past medical history with past medical history of atrial fibrillation, currently rhythm controlled on propafenone; obstructive sleep apnea, intermittent uses CPAP; hypertension; coronary artery disease, not on ASPIRIN secondary to allergy; postop right total hip arthroplasty without complications. 1. Atrial fibrillation. Currently on telemetry, normal sinus rhythm. Continue Cartia at increased dose of 320 mg per day. This is ordered. Continue propafenone b.i.d., this is also ordered. She should restart Xarelto as soon as deemed stable by the orthopedic surgery team. Of note, this was ordered. However, I was unsure whether this was correct to begin. I discontinued her Xarelto. Please REORDER, THEN STOP this medication if thought safe to begin postop day #1. Of note, she is in normal sinus rhythm and has some additional limited leeway in the timeline to restart it if thought necessary to delay another 24 to 48 hours. 2. Obstructive sleep apnea, intermittently uses at home, predominantly does not. I ordered CPAP to use while in the compliant. 3. Hypertension, continue Cartia. We can decrease dose or switch to short acting if necessary. It does not seem to be necessary at this time. 4. Coronary artery disease, monitor carefully. She is on no ASPIRIN given her history of allergy. I also notes she is not on Plavix or Brilinta. It does not seem necessary. Per Cardiology notes, her anginal equivalent in the setting of her LAD back pain. 5. Postop day 0, care per orthopedic team. We will continue to follow. [id number]/[facility] #: [id number] [facility]OSPITALMercedes
[2017-10-16] MEDS: HYDROcodone/ACETAMIN 5-325 MG* 1 TAB PO PRN ×3 (06:10→19:26)
[2017-10-16 06:13] LABS: Hematocrit 35 % (35-47); Mean Platelet Volume 7.5 um3 (7.4-10.4); Platelet Count 181 10^3/ul (150-450)
[2017-10-16 06:21] LABS: INR 0.97 (0.77-1.02)
[2017-10-16 06:34] LABS: EGFR Non-African American 70.5 (>60)
[2017-10-16] MEDS: Magnesium Hydroxide LIQ* 30 ML UDC PO SCH ×2 (08:30→19:26)
[2017-10-16] MEDS: Diltiazem CD CAP* 240 MG PO SCH (08:31)
[2017-10-16] MEDS: Docusate CAP* 100 MG PO SCH ×2 (08:31→19:27)
[2017-10-16] MEDS: PROPAFENONE 225 MG PO SCH ×3 (08:31→19:27)
[2017-10-16] MEDS: Diltiazem CD CAP* 120 MG PO SCH (08:31)
--- NOTE | 2017-10-16 09:52 | PN ---
Progress Note - Progress Note Date of Service: 10/16/17 SOAP: Subjective: Ms. Maxwell is a 72 y/o female who is POD #1 s/p R JUSTYNA with Dr. Dyer on . VSS. Pain well controlled. Ambulated with PT this morning. Objective: Vital Signs Temp 98.5 F 10/16/17 07:41 Pulse 74 10/16/17 07:41 Resp 16 10/16/17 08:29 BP 149/58 10/16/17 07:41 Pulse Ox 94 10/16/17 08:00 Intake & Output 10/15/17 10/16/17 10/16/17 18:59 06:59 18:59 Intake Total 2100 940 1034 Output Total 100 500 300 Balance 2000 440 734 Weight 175 lb Intake: IV Fluids 2100 200 981 LR 2100 200 981 IVPB 53 LR 53 Oral 740 Output: Urine 300 Burton 50 500 Residual 50 Burton 16 Fr 50 Other: Estimated Blood Loss 250 Comment Laboratory Results - last 24 hr 10/15/17 10/16/17 10/16/17 13:00 05:57 05:57 Hgb 12.0 Hct 35 Plt Count 181 MPV 7.5 INR (Anticoag Therapy) 0.93 0.97 Sodium Potassium Chloride Carbon Dioxide Anion Gap BUN Creatinine Est GFR ( Amer) Est GFR (Non-Af Amer) BUN/Creatinine Ratio Glucose Calcium 10/16/17 05:57 Hgb Hct Plt Count MPV INR (Anticoag Therapy) Sodium 136 Potassium 4.0 Chloride 102 Carbon Dioxide 24 Anion Gap 10 BUN 15 Creatinine 0.80 Est GFR ( Amer) 85.3 Est GFR (Non-Af Amer) 70.5 BUN/Creatinine Ratio 18.8 Glucose 189 H Calcium 9.1 General: WN, WD, NAD RLE: Dressing C/D/I, no erythema, warmth, ecchymosis proximal or distal to dressing. Calf and thigh soft, non-tender. +DF/PF, Brisk capillary refill. Decreased sensation to lower calf which is her baseline. Assessment: POD #1 S/P R JUSTYNA with Dr. Dyer on 10/15/17. Plan: - WBAT - Continue PT/OT - DVT prophylaxis: Restart xarelto - Appreciate medicine consult for comorbid problem management - Likely discharge tomorrow
[2017-10-16] MEDS ORDERED: Enoxaparin(*) 40 MG/0.4 ML SYR SUBCUT SCH (12:00)
--- NOTE | 2017-10-16 14:21 | PN ---
Subjective Date of Service: 10/16/17 Interval History: Patient doing well, minor pain in hip. Denies CP, SOB, N/V, abdominal pain, Palpitations, dizziness. Has urinated with summers out. Passing gas with no BM. Family History: Unchanged from Admission Social History: Unchanged from Admission Past Medical History: Unchanged from Admission Objective Active Medications: Acetaminophen (Tylenol Tab*) 650 mg PO Q4H PRN PRN Reason: FEVER/PAIN Hydrocodone Bitart/Acetaminophen ([place]on 5-325 Tab*) 1 tab PO Q4H PRN PRN Reason: PAIN - MILD Last Admin: 10/16/17 12:40 Dose: 1 tab Hydrocodone Bitart/Acetaminophen ([place] 5-325 Tab*) 2 tab PO Q4H PRN PRN Reason: PAIN - MODERATE Bisacodyl (Dulcolax Supp*) 10 mg NC DAILY PRN PRN Reason: constipation Cyclobenzaprine HCl (Flexeril Tab*) 10 mg PO TID PRN PRN Reason: SPASMS Diltiazem HCl (Cardizem Cd Cap*) 240 mg PO QAM [facility] Last Admin: 10/16/17 08:31 Dose: 240 mg Diltiazem HCl (Cardizem Cd Cap*) 120 mg PO QAM [facility] Last Admin: 10/16/17 08:31 Dose: 120 mg Diphenhydramine HCl (Benadryl Iv*) 25 mg IV Q6H PRN PRN Reason: itching Diphenhydramine HCl (Benadryl Po*) 25 mg PO Q6H PRN PRN Reason: itching Docusate Sodium (Colace Cap*) 100 mg PO BID [facility] Last Admin: 10/16/17 08:31 Dose: 100 mg Cefazolin Sodium/Dextrose (Kefzol 1 Gm In Dextrose Duplex (*)) 1 gm in 50 mls @ 200 mls/hr IVPB Q8H [facility] Stop: 10/16/17 16:44 Last Admin: 10/16/17 08:28 Dose: 200 mls/hr Lactated Ringer's (Lactated Ringers 1000 Ml Bag*) 1,000 mls @ 50 mls/hr IV PER RATE [facility] Magnesium Hydroxide (Milk Of Magnesia Liq*) 30 ml PO BID [facility] Last Admin: 10/16/17 08:30 Dose: 30 ml Magnesium Hydroxide (Milk Of Magnesia Liq*) 30 ml PO Q6H PRN PRN Reason: constipation Morphine Sulfate (Morphine Vial*) 2 mg IV Q2H PRN PRN Reason: PAIN - BREAKTHROUGH Morphine Sulfate (Morphine Vial*) 4 mg IV Q2H PRN PRN Reason: PAIN - UNRELIEVED Ondansetron HCl (Zofran Inj*) 4 mg IV Q6H PRN PRN Reason: nausea Ondansetron HCl (Zofran Tab*) 4 mg PO Q6H PRN PRN Reason: NAUSEA Potassium Chloride (Klor Con Er Tab*) 20 meq PO QAM PRN PRN Reason: Swelling Propafenone HCl (Rythmol Sr (Nf)) 225 mg PO BID [facility] Last Admin: 10/16/17 08:31 Dose: 225 mg Rivaroxaban (Xarelto(*)) 15 mg PO DAILY [facility] Torsemide (Demadex*) 20 mg PO QAM PRN PRN Reason: swelling Vital Signs - 8 hr 10/16/17 10/16/17 10/16/17 07:07 07:41 08:00 Temperature 98.5 F Pulse Rate 74 Respiratory 16 17 16 Rate Blood Pressure 149/58 (mmHg) O2 Sat by Pulse 93 94 94 Oximetry 10/16/17 10/16/17 10/16/17 08:29 11:47 12:30 Temperature 98.7 F Pulse Rate 88 91 Respiratory 16 17 Rate Blood Pressure 141/51 136/43 (mmHg) O2 Sat by Pulse 97 97 Oximetry 10/16/17 12:40 Temperature Pulse Rate Respiratory 16 Rate Blood Pressure (mmHg) O2 Sat by Pulse Oximetry Oxygen Devices in Use Now: None Appearance: Patient is a 72yo female who appears stated age and is sitting in the bed in [facility]. Eyes: No Scleral Icterus, PERRLA Ears/Nose/Mouth/Throat: NL Teeth, Lips, Gums, Clear Oropharnyx, Mucous Membranes Moist Neck: NL Appearance and Movements; NL JVP, Trachea Midline Respiratory: Symmetrical Chest Expansion and Respiratory Effort, Clear to Auscultation Cardiovascular: NL Sounds; No Murmurs; No JVD, RRR, No Edema Abdominal: NL Sounds; No Tenderness; No Distention, No Hepatosplenomegaly Lymphatic: No Cervical Adenopathy Extremities: No Edema, No Clubbing, Cyanosis Skin: No Rash or Ulcers, No Nodules or Sclerosis, - - Right hip incision covered with CDI dressing. Neurological: Alert and Oriented x 3, NL Sensation, NL Muscle Strength and Tone , - - CN II-XII intact. Result Diagrams: 10/16/17 05:57 10/16/17 05:57 Assess/Plan/Problems-Billing Assessment: Patient is a 72yo female with a PMH for PAF, CAD, HTN, EVANGELINA, here S/P a RTHA and is doing well. - Patient Problems (1) Post-operative state Current Visit: Yes Status: Acute Code(s): Z98.890 - OTHER SPECIFIED POSTPROCEDURAL STATES SNOMED Code(s): 69351927 Comment: Management per primary team. Trend H/H. PT/OT, Bowel Regimen. Pain controlled. Urinating without summers. (2) Atrial fibrillation Current Visit: Yes Status: Acute Code(s): I48.91 - UNSPECIFIED ATRIAL FIBRILLATION SNOMED Code(s): 91258546 Comment: In Sinus Rhythm. Resume Xarelto. Continue Cartia and Propafenone. (3) Hx of heart artery stent Current Visit: No Status: Chronic Priority: Medium Code(s): Z95.5 - PRESENCE OF CORONARY ANGIOPLASTY IMPLANT AND GRAFT SNOMED Code(s): 548783393 Comment: In 2004. On no antiplatelet therapy due to ASA allergy. On no Statin. Follows with Cardiology. Follow up outpatient. (4) History of hypertension Current Visit: No Status: Chronic Priority: Medium Code(s): Z86.79 - PERSONAL HISTORY OF OTHER DISEASES OF THE CIRCULATORY SYSTEM SNOMED Code(s): 007404485 Comment: Normotensive Continue diltiazem (5) DVT prophylaxis Current Visit: No Status: Acute Priority: Medium Onset Date: 07/19/14 Code(s): IKZ3170 - SNOMED Code(s): 958882104 Comment: Xarelto (6) Full code status Current Visit: No Status: Acute Priority: High Onset Date: 07/19/14 Code (s): Z78.9 - OTHER SPECIFIED HEALTH STATUS SNOMED Code(s): 920377426 Status and Disposition: Inpatient. Disposition per primary team.
[2017-10-16] MEDS ORDERED: Rivaroxaban TAB(*) 15 MG PO SCH ×2 (17:00→18:00)
[2017-10-16] MEDS: Rivaroxaban TAB(*) 15 MG PO SCH ×2 (18:48→19:28)
--- NOTE | 2017-10-16 22:58 | OP ---
OPERATIVE REPORT: DATE OF SURGERY: 10/15/17 - Inpatient, room 442-02. DATE OF : 45 SURGEON: Shantell Dyer MD NURSING ADMINISTRATOR: CHERELLE Webster Ms. Gonsales did help throughout the procedure with preparation of the leg wound retraction, manipulation of the hip, and wound closure. ANESTHESIOLOGIST: Dr. Cook. ANESTHESIA: General. PRE-OP DIAGNOSIS: Severe end-stage degenerative osteoarthritis of the right hip joint. POST-OP DIAGNOSIS: Severe end-stage degenerative osteoarthritis of the right hip joint. PROCEDURE PERFORMED: Right total hip arthroplasty. COMPLICATIONS: None. ESTIMATED BLOOD LOSS: 300 mL. HARDWARE USED: This is uncemented Lamin total hip arthroplasty hardware. For the cup, a 50E Tritanium cluster hole shell, a single 20-mm and a single 16- mm cancellous bone screw were used. For the polyethylene, a Trident X3 0- degree polyethylene insert 36D. For the stem, an Accolade TMZF size 2.5 with a 127-degree neck angle. For the head, a Biolox delta ceramic V40 femoral head 36 -2.5. BRIEF HISTORY/INDICATIONS: Ms. Maxwell is a 72-year-old female with years of increasingly severe right hip pain. Radiographs showed advanced osteoarthritis. She failed conservative treatment with anti-inflammatories, pain medication, intraarticular injection, and physical therapy. Due to continued pain and decreased quality of life, she elected to undergo right total hip arthroplasty. Informed consent was obtained from the patient. She understood the risks of surgery included, but were not limited to bleeding, infection, damage to nearby structures, continued pain, need for further surgery , intraoperative fracture, nerve palsy, hardware failure or loosening, dislocation, leg length discrepancies, stroke, heart attack, blood clot, and . She wished to proceed. INTRAOPERATIVE FINDINGS: Intraoperatively, the patient was noted to have severe end-stage arthritis with complete loss of cartilage along the acetabulum and femoral head. 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 DESCRIPTION OF PROCEDURE: Ms. Maxwell was identified in the preanesthesia unit. Her right lower extremity was marked as the correct operative side. Informed consent was signed and placed in the chart. The patient was taken to the operating room and placed under general anesthesia. A Burton catheter was placed. Right lower extremity was prepped and draped in the usual sterile fashion. Preop time- out was made to correctly identify the patient's side and site. Appropriate perioperative antibiotics were given within 1 hour of incision. A 12-cm posterior hip incision was made with a 10-blade and carried down to the lateral fascial layer. Lateral facial layer was incised in line with the skin incision. The Charnley retractor was placed. The piriformis and conjoint tendons were elevated off the posterolateral femur using electrocautery. These were tagged with #5 Ethibond. Next, electrocautery was used to make a standard posterolateral capsular flap. This was also tagged with #5 Ethibond. The hip was carefully dislocated. Lesser troch to the center of the femoral head measured 50 mm. Oscillating saw was used to make the appropriate femoral neck cut. Femoral head was removed and sent to pathology. The femur was retracted anteriorly. After appropriate placement of the retractor, the acetabulum was well visualized. The acetabulum was sequentially reamed up to a size 49. The 49 trial had excellent fit. There was a bleeding subchondral bone bed. The final implant chosen was a Tritanium cluster hole shell 50E. This was impacted into the acetabulum without difficulty. The shell was stable with appropriate anteversion and abduction angle. Two screws were placed in the superior posterior quadrant for extra stability. These were length 16 and 20 mm. A Trident X3 0-degree polyethylene insert 36D was chosen as the appropriate insert. This was impacted into the acetabulum without difficulty. Stability of the insert was checked and rechecked and noted to be stable. Next, the attention was turned to preparation of the femoral canal. A canal finder was used to enter the proximal femur. The proximal femur was sequentially broached up to a size 2.5. A 2.5 broach had excellent fit and appropriate anteversion. A 127 neck trial including 36 + 0 head trial was placed. The lesser troch to center of the femoral head measured 51 mm. The hip was reduced and taken through range of motion. The hip was stable in all positions. There was good soft tissue tension and appropriate leg lengths. The hip was carefully dislocated. All implants were removed. Final implant chosen was an Accolade TMZF size 2.5 with a 127 neck angle. This was impacted into the femoral canal. Stability of the stem was noted to be excellent. The stem did sit up 2 mm higher than the broach, therefore a Biolox delta ceramic V40 femoral head 36 -2.5 was chosen as the final femoral head. This was impacted onto the femoral neck. The lesser troch to the center of the femoral head measured 50 mm. The hip was reduced and taken through a range of motion. The hip was stable in all positions. There was good soft tissue tension and appropriate leg lengths. Previously tagged capsule and tendons were reapproximated to the posterolateral femur through 2 trochanteric drill holes. The hip was copiously irrigated with sterile saline. The lateral facial layer was closed using interrupted #1 Vicryl. The rest of the incision was closed in a layered fashion using 0 and 2-0 Vicryl. Skin was closed using running 3-0 Monocryl and Dermabond. Sterile Adaptic, 4x4s, and paper tape were used to cover the incision. The patient's anesthesia was reversed without difficulty. She was taken to the PACU in stable condition. Intended weightbearing will be weightbearing as tolerated with posterior hip precautions. Intended DVT prophylaxis will be Coumadin with a Lovenox bridge. [id number]/[facility] #: [id number] OPAL
[2017-10-17 05:51] LABS: Hematocrit 31 % (35-47); Hemoglobin 10.4 g/dl (12.0-16.0); Mean Platelet Volume 7.8 um3 (7.4-10.4); Platelet Count 170 10^3/ul (150-450)
[2017-10-17 05:59] LABS: INR 1.31 (0.77-1.02)
[2017-10-17] MEDS: Diltiazem CD CAP* 240 MG PO SCH (08:18)
[2017-10-17] MEDS: Docusate CAP* 100 MG PO SCH ×2 (08:18→20:30)
[2017-10-17] MEDS: PROPAFENONE 225 MG PO SCH ×2 (08:18→20:30)
[2017-10-17] MEDS: HYDROcodone/ACETAMIN 5-325 MG* 1 TAB PO PRN ×3 (08:18→20:36)
[2017-10-17] MEDS: Diltiazem CD CAP* 120 MG PO SCH (08:18)
[2017-10-17] MEDS: Magnesium Hydroxide LIQ* 30 ML UDC PO SCH ×2 (08:20→20:30)
[2017-10-17] MEDS ORDERED: Metoprolol Tartrate IV* 1 MG/ML 5 ML VIAL IV ONE (09:09)
[2017-10-17] MEDS ORDERED: Metoprolol Tartrate IV* 1 MG/ML 5 ML VIAL ONE (09:21)
--- NOTE | 2017-10-17 09:52 | PN ---
Progress Note - Progress Note Date of Service: 10/17/17 SOAP: Subjective: Ms. Maxwell is a 72 y/o female who is POD #2 s/p R JUSTYNA with Dr. Dyer on . VSS. Pain well controlled. Ambulated with PT this morning. Objective: General: awake, alert and oriented x 3, NAD RLE: Dressing changed today, incision is clean, dry and intact with no erythema , warmth, or discharge. Calf and thigh soft, non-tender. +DF/PF, Brisk capillary refill. Decreased sensation to lower calf which is her baseline. Vital Signs Temp 97.6 F 10/17/17 07:14 Pulse 126 10/17/17 08:39 Resp 16 10/17/17 08:18 BP 143/47 10/17/17 08:39 Pulse Ox 96 10/17/17 07:14 Intake & Output 10/16/17 10/17/17 10/17/17 18:59 06:59 18:59 Intake Total 1034 701 120 Output Total 300 500 Balance 734 201 120 Intake: IV Fluids 981 551 LR 981 551 IVPB 53 LR 53 Oral 150 120 Output: Urine 300 500 Other: Estimated Void Large Medium # Bowel Movements 1 Estimated Stool Amount Large # Voids 1 1 Assessment: POD #2 S/P R JUSTYNA with Dr. Dyer on 10/15/17. Plan: - WBAT - Continue PT/OT - DVT prophylaxis: xarelto - medicine co-managing - Likely discharge tomorrow should a-fib stabilize
--- NOTE | 2017-10-17 13:16 | PN ---
Subjective Date of Service: 10/17/17 Interval History: Patient went into afib this AM with rates to the 160s with activity. Patient remained asymptomatic from this throughout and was unaware that she converted to afib. Patient complains of persistent pain in her leg and hip but it is minor. Patient denies CP, SOB, N/V, abdominal pain, diarrhea, dysuria, F/C, or other pain. Family History: Unchanged from Admission Social History: Unchanged from Admission Past Medical History: Unchanged from Admission Objective Active Medications: Acetaminophen (Tylenol Tab*) 650 mg PO Q4H PRN PRN Reason: FEVER/PAIN Hydrocodone Bitart/Acetaminophen ([place] 5-325 Tab*) 1 tab PO Q4H PRN PRN Reason: PAIN - MILD Last Admin: 10/17/17 08:18 Dose: 1 tab Hydrocodone Bitart/Acetaminophen ([place] 5-325 Tab*) 2 tab PO Q4H PRN PRN Reason: PAIN - MODERATE Bisacodyl (Dulcolax Supp*) 10 mg CA DAILY PRN PRN Reason: constipation Cyclobenzaprine HCl (Flexeril Tab*) 10 mg PO TID PRN PRN Reason: SPASMS Diltiazem HCl (Cardizem Cd Cap*) 240 mg PO QAM [facility] Last Admin: 10/17/17 08:18 Dose: 240 mg Diltiazem HCl (Cardizem Cd Cap*) 120 mg PO QAM [facility] Last Admin: 10/17/17 08:18 Dose: 120 mg Diphenhydramine HCl (Benadryl Iv*) 25 mg IV Q6H PRN PRN Reason: itching Diphenhydramine HCl (Benadryl Po*) 25 mg PO Q6H PRN PRN Reason: itching Docusate Sodium (Colace Cap*) 100 mg PO BID [facility] Last Admin: 10/17/17 08:18 Dose: 100 mg Magnesium Hydroxide (Milk Of Magnesia Liq*) 30 ml PO BID [facility] Last Admin: 10/17/17 08:20 Dose: Not Given Magnesium Hydroxide (Milk Of Magnesia Liq*) 30 ml PO Q6H PRN PRN Reason: constipation Morphine Sulfate (Morphine Vial*) 2 mg IV Q2H PRN PRN Reason: PAIN - BREAKTHROUGH Morphine Sulfate (Morphine Vial*) 4 mg IV Q2H PRN PRN Reason: PAIN - UNRELIEVED Ondansetron HCl (Zofran Inj*) 4 mg IV Q6H PRN PRN Reason: nausea Ondansetron HCl (Zofran Tab*) 4 mg PO Q6H PRN PRN Reason: NAUSEA Potassium Chloride (Klor Con Er Tab*) 20 meq PO QAM PRN PRN Reason: Swelling Propafenone HCl (Rythmol Sr (Nf)) 225 mg PO BID [facility] Last Admin: 10/17/17 08:18 Dose: 225 mg Rivaroxaban (Xarelto(*)) 15 mg PO 2100 [facility] Last Admin: 10/16/17 19:28 Dose: Not Given Torsemide (Demadex*) 20 mg PO QAM PRN PRN Reason: swelling Vital Signs - 8 hr 10/17/17 10/17/17 10/17/17 07:14 08:00 08:18 Temperature 97.6 F Pulse Rate 76 Respiratory 18 16 16 Rate Blood Pressure 133/56 (mmHg) O2 Sat by Pulse 96 Oximetry 10/17/17 10/17/17 10/17/17 08:39 09:29 11:05 Temperature 97.8 F Pulse Rate 126 99 108 Respiratory 18 Rate Blood Pressure 143/47 144/78 152/49 (mmHg) O2 Sat by Pulse 97 97 Oximetry 10/17/17 11:36 Temperature 99.4 F Pulse Rate 60 Respiratory 16 Rate Blood Pressure 124/63 (mmHg) O2 Sat by Pulse 97 Oximetry Oxygen Devices in Use Now: None Appearance: Patient is a 72yo female who appears stated age and is sitting in the bed in [facility]. Eyes: No Scleral Icterus, PERRLA Ears/Nose/Mouth/Throat: NL Teeth, Lips, Gums, Clear Oropharnyx, Mucous Membranes Moist Neck: NL Appearance and Movements; NL JVP, Trachea Midline Respiratory: Symmetrical Chest Expansion and Respiratory Effort, Clear to Auscultation Cardiovascular: NL Sounds; No Murmurs; No JVD, No Edema, - - Irregularly, irregular, tachycardic rhythm. Abdominal: NL Sounds; No Tenderness; No Distention, No Hepatosplenomegaly Lymphatic: No Cervical Adenopathy Extremities: No Edema, No Clubbing, Cyanosis Skin: No Nodules or Sclerosis, - - Left hip incision covered with CDI dressing. Neurological: Alert and Oriented x 3, NL Sensation, NL Muscle Strength and Tone , - - CN II-XII intact. Result Diagrams: 10/17/17 05:25 10/16/17 05:57 Assess/Plan/Problems-Billing Assessment: Patient is a 72yo female with a PMH for PAF, CAD, HTN, EVANGELINA, here S/P a RTHA and is doing well. Patient converted to Afib which she has a history of with controlled rates this AM. - Patient Problems (1) Post-operative state Current Visit: Yes Status: Acute Code(s): Z98.890 - OTHER SPECIFIED POSTPROCEDURAL STATES SNOMED Code(s): 43581192 Comment: Management per primary team. Trend H/H. PT/OT, Bowel Regimen. Pain controlled. Urinating without summers. (2) Atrial fibrillation Current Visit: Yes Status: Acute Code(s): I48.91 - UNSPECIFIED ATRIAL FIBRILLATION SNOMED Code(s): 25417770 Comment: Converted to Afib this AM. Resume Xarelto. Continue Cartia and Propafenone. Rates controlled this afternoon. Was uncontrolled this AM. Will consider increasing CCB or adding BB if recurrent tachycardia tomorrow AM. (3) Hx of heart artery stent Current Visit: No Status: Chronic Priority: Medium Code(s): Z95.5 - PRESENCE OF CORONARY ANGIOPLASTY IMPLANT AND GRAFT SNOMED Code(s): 952610436 Comment: In 2004. On no antiplatelet therapy due to ASA allergy. On no Statin. Follows with Cardiology. Follow up outpatient. (4) History of hypertension Current Visit: No Status: Chronic Priority: Medium Code(s): Z86.79 - PERSONAL HISTORY OF OTHER DISEASES OF THE CIRCULATORY SYSTEM SNOMED Code(s): 459148408 Comment: Normotensive Continue diltiazem (5) DVT prophylaxis Current Visit: No Status: Acute Priority: Medium Onset Date: 07/19/14 Code(s): FRH2600 - SNOMED Code(s): 815187452 Comment: Xarelto (6) Full code status Current Visit: No Status: Acute Priority: High Onset Date: 07/19/14 Code (s): Z78.9 - OTHER SPECIFIED HEALTH STATUS SNOMED Code(s): 084885991 Status and Disposition: Inpatient. Disposition per primary team. Hopeful discharge tomorrow.
[2017-10-17] MEDS ORDERED: Rivaroxaban TAB(*) 15 MG PO SCH (17:00)
[2017-10-17] MEDS ORDERED: Bisacodyl SUPP* 10 MG SUPP PR PRN (18:49)
[2017-10-17] MEDS: Rivaroxaban TAB(*) 15 MG PO SCH (20:31)
[2017-10-18 06:35] LABS: Hematocrit 33 % (35-47); Platelet Count 182 10^3/ul (150-450)
[2017-10-18 06:51] LABS: EGFR Non-African American 96.4 (>60)
[2017-10-18] MEDS: Magnesium Hydroxide LIQ* 30 ML UDC PO SCH (08:42)
[2017-10-18] MEDS: PROPAFENONE 225 MG PO SCH (08:43)
[2017-10-18] MEDS: Diltiazem CD CAP* 120 MG PO SCH (08:43)
[2017-10-18] MEDS: Diltiazem CD CAP* 240 MG PO SCH (08:43)
[2017-10-18] MEDS: Docusate CAP* 100 MG PO SCH ×2 (08:44→10:08)
--- NOTE | 2017-10-18 09:29 | PN ---
Progress Note - Progress Note Date of Service: 10/18/17 SOAP: Subjective: Ms. Maxwell is a 72 y/o female who is POD #3 s/p R JUSTYNA with Dr. Dyer on . Run of afib with RVR today, no fevers. Patient rate stable when seen. She is ready to go home. Denies any CP, SOB, calf pain, dizziness, lightheadedness, fevers, chills. Objective: Vital Signs Temp 98.2 F 10/18/17 08:02 Pulse 64 10/18/17 08:02 Resp 16 10/18/17 08:02 BP 112/50 10/18/17 08:02 Pulse Ox 98 10/18/17 08:02 Intake & Output 10/17/17 10/18/17 10/18/17 18:59 06:59 18:59 Intake Total 120 630 Output Total 0 Balance 120 630 Intake: Oral 120 630 Output: Urine 0 Other: Estimated Void Medium # Bowel Movements 0 # Voids 3 Laboratory Results - last 24 hr 10/18/17 10/18/17 06:06 06:06 Hgb 11.0 L Hct 33 L Plt Count 182 MPV 8.0 Sodium 137 Potassium 3.9 Chloride 104 Carbon Dioxide 25 Anion Gap 8 BUN 15 Creatinine 0.61 Est GFR ( Amer) 116.7 Est GFR (Non-Af Amer) 96.4 BUN/Creatinine Ratio 24.6 H Glucose 101 H Calcium 8.8 Magnesium 2.0 General: awake, alert and oriented x 3, NAD RLE: Dressing C/D/I and changed today, incision is clean, dry and intact with no erythema, warmth, or discharge. Calf and thigh soft, non-tender. +DF/PF, Brisk capillary refill. Decreased sensation to lower calf which is her baseline. Assessment: Ms. Maxwell is a 72 y/o female who is POD #3 s/p R JUSTYNA with Dr. Dyer on Plan: - WBAT - Continue PT/OT - DVT prophylaxis: xarelto - medicine co-managing - D/C today with stable HR, close follow up with Dr. Galeas. Continue Metoprolol.
[2017-10-18] MEDS ORDERED: Metoprolol Succinate XL TAB* 25 MG PO SCH (10:00)
[2017-10-18 12:33] VITALS: BP 120/46
[2017-10-18] MEDS ORDERED: Diltiazem CD CAP* 120 MG PO SCH (18:00)
--- NOTE | 2017-10-19 01:18 | DS ---
DISCHARGE SUMMARY: DATE OF ADMISSION: 10/15/17 DATE OF DISCHARGE: 10/18/17 ATTENDING PHYSICIAN: Shantell Dyer MD * (DICTATED BY CHERELLE LAU) CHIEF COMPLAINT: 1. Right hip osteoarthritis. 2. Atrial fibrillation. 3. Cardiovascular disease. 4. Hypertension. DISCHARGE DIAGNOSES: 1. Status post right total hip arthroplasty. 2. Atrial fibrillation with recent rapid ventricular response. 3. Coronary vascular disease. 4. Hypertension. PROCEDURE: Right total hip arthroplasty. CONSULTATIONS: Physical Therapy, Occupational Therapy, and Medicine. BRIEF HISTORY: Ms. Maxwell is a 72-year-old female with osteoarthritis of the right hip, who failed conservative treatment and elected to undergo a right total hip arthroplasty on 10/15/[address] Shantell Dyer. HOSPITAL COURSE: Ms. Maxwell was admitted to [facility] on , where she underwent a right total hip arthroplasty. Postoperatively, she recovered on the short-stay unit the first day. On postop day 1, her Burton catheter was removed and she was able to urinate on her own. She was advanced to regular diet without difficulty and pain was controlled with p.o. Percocet. She was restarted on home medication that evening. She was noted to have transitioned into AFib with RVR and was moved to the medical floor where Medicine recommended addition of metoprolol as well as continuation of her diltiazem. She converted from AFib on postop day 2. She was noted to have 1 more round of increased heart rate on postop day 3, but was transitioned quickly back into regular heart rate. Otherwise, labs were stable throughout her admission. She was able to bear weight as tolerated to the right lower extremity. She was advanced appropriately with physical therapy and occupational therapy. DVT prophylaxis was controlled with Xarelto, which is what she takes at home for her AFib. On postoperative day 3, she was determined to be medically and orthopedically stable for discharge home with services. It was noted that though ordered, the patient was not getting her evening doses of diltiazem per the hospital MAR, which likely contributed to her AFib with RVR. PHYSICAL EXAMINATION: General: Well nourished, well developed, in no acute distress. She is sitting comfortably in a chair. She is alert and oriented x3. Vital Signs: On day of discharge; temperature 98.2, pulse 64, respirations 16, blood pressure 112/50. Right lower extremity shows a dressing that is clean , dry, and intact. Her incision is also clean and intact with no erythema, warmth, purulent drainage, or other signs of infection. Her calf and thigh bilaterally are soft and nontender. She is able to dorsiflex and plantarflex her right leg. She has brisk capillary refill. She has decreased sensation to her lower calf, which is her baseline. Sensation intact proximal to her ankle. LABORATORY DATA: On date of discharge: Hemoglobin 11.0, hematocrit 33. RADIOGRAPHS: Postoperative radiographs of the right hip demonstrate a right total hip arthroplasty with satisfactory prosthesis placement and no bony abnormalities. DISCHARGE MEDICATIONS: 1. Potassium chloride 10 mEq in the morning. 2. Propafenone 225 b.i.d. 3. Restful Legs 4 tablets at night. 4. Diltiazem 120 mg 2 tablets in the morning and 1 tablet at night. 5. Percocet 5/325 mg 1 to 2 tablets every 4 hours as needed for pain. 6. Metoprolol 25 mg XL b.i.d. 7. Rivaroxaban 15 mg at night. CONDITION ON DISCHARGE: Stable. DISCHARGE INSTRUCTIONS: Ms. Maxwell is a 72-year-old female who is postoperative day 3 status post right total hip arthroplasty. Her hospital stay was complicated by AFib with RVR. She was started on metoprolol while in- house. She is orthopedically and medically stable for discharge home with services. Her labs and vital signs this afternoon are stable. She will restart her home medications and she will continue taking metoprolol 25 mg b.i.d. She will follow up in the near future with Dr. Galeas. She will have visiting nurse services to check on wound and will do physical therapy with home services. She will remain weightbearing as tolerated. She will take Percocet for pain control. She will take Colace up to 3 times a day for constipation. She will follow up with Dr. Dyer in 10 to 14 days for an incision check and suture removal. She was instructed to go to the ER should she develop chest pain, shortness of breath, or drainage from her wound with a fever. Should she develop fever, increasing pain or redness, she will call the office immediately. MELANIE VERONICA, CHERELLE [id number]/[facility] #: [id number] OPAL
== END 2017-10-18 16:14 | disposition home health service (06) | DRG 301 ==
LOC: AA 12:22 → SSU 21:09 → MEDTELE 10-17 10:12
PROVIDERS: ADMIT Orthopaedic Surgery Adult Reconstructive Orthopaedic Surgery; ATTEND Internal Medicine
PROC: 0SR904A Replacement of Right Hip Joint with Ceramic on Polyethylene Synthetic Substitute, Uncemented, Open Approach (ICD-10-PCS; principal; 2017-10-15 15:00)
PROC: 5A09357 Assistance with Respiratory Ventilation, Less than 24 Consecutive Hours, Continuous Positive Airway Pressure (ICD-10-PCS; 2017-10-17)
DX: M16.11 Unilateral primary osteoarthritis, right hip (principal); M87.851 Other osteonecrosis, right femur; M87.852 Other osteonecrosis, left femur; I48.1 Persistent atrial fibrillation; I25.110 Atherosclerotic heart disease of native coronary artery with unstable angina pectoris; I10 Essential (primary) hypertension; E78.5 Hyperlipidemia, unspecified; G89.29 Other chronic pain; M54.5 Low back pain; G47.33 Obstructive sleep apnea (adult) (pediatric); M54.2 Cervicalgia; Z96.698 Presence of other orthopedic joint implants; M25.751 Osteophyte, right hip; M46.90 Unspecified inflammatory spondylopathy, site unspecified; G62.9 Polyneuropathy, unspecified; I08.1 Rheumatic disorders of both mitral and tricuspid valves; I48.0 Paroxysmal atrial fibrillation; G25.81 Restless legs syndrome; Z90.710 Acquired absence of both cervix and uterus; Z90.49 Acquired absence of other specified parts of digestive tract; Z88.8 Allergy status to other drugs, medicaments and biological substances; Z91.040 Latex allergy status; Z82.49 Family history of ischemic heart disease and other diseases of the circulatory system; Z79.01 Long term (current) use of anticoagulants; Z87.891 Personal history of nicotine dependence; Z72.89 Other problems related to lifestyle; Z95.5 Presence of coronary angioplasty implant and graft; Z86.11 Personal history of tuberculosis; Z91.19 Patient's noncompliance with other medical treatment and regimen; Z88.5 Allergy status to narcotic agent; Z91.048 Other nonmedicinal substance allergy status; Q65.89 Other specified congenital deformities of hip
CPT/HCPCS: 36415; 72170; 80048; 83735; 85014; 85018; 85049; 85610; 88304; 88311; 93005; 94660; A9270-GY; C1713; C1776; G8978-GP-CL; G8978-GP-CM; G8979-GP-CK; G8979-GP-CL; G8987-GO-CJ; G8988-GO-CI; G8989-GO-CI; J0690; J1100; J1170; J1885; J2250; J2405; J2704; J3010; J3490

== ENCOUNTER 2017-11-05 07:16 | Observation (INO) | payer BC, MEDICARE ==
--- NOTE | 2017-11-05 07:31 | ED ---
Complex/Multi-Sys Presentation - HPI Summary HPI Summary: This is Jad Cary documenting for attending Dominick Wu MD. Pt is a 72 y/o F c/o intermittent diarrhea and chills onset at 1300 yesterday. Associated Sx: fever (subjective), SOB, Upset stomach, CP, Nausea. CP is described as tightness located central chest and is rated a 2/10 when asked about intensity. Denies: Vomiting, belly/back pain. She says that right before bed her stomach contracts like she is giving . PMHx: A-fib, blood thinners , cardio loop in chest, kidney stones. PSHx: Just had surgery on L arm. - History Of Current Complaint Chief Complaint: EDNauseaVomitDiarrh Time Seen by Provider: 11/05/17 07:24 Hx Obtained From: Patient Onset/Duration: Gradual Onset, Lasting Hours Timing: Intermittent, Lasting: Severity Currently: Mild Associated Signs And Symptoms: Positive: SOB, Chest Pain, Nausea, Diarrhea, Fever - subjective. Negative: Vomiting, Back Pain - Allergies/Home Medications Allergies/Adverse Reactions: Allergies Allergy/AdvReac Type Severity Reaction Status Date / Time latex Allergy Severe Rash Verified 10/02/17 12:20 oxycodone [From OxyContin] Allergy Severe Vomiting Verified 10/02/17 12:20 aspirin Allergy Intermediate GI Upset Verified 10/02/17 12:20 ADHESIVE/BANDAIDES Allergy Severe RASH AND Uncoded 10/02/17 12:20 PULLS SKIN OFF Home Medications: Home Medications dilTIAZem HCl [Cartia Xt] 240 mg PO DAILY 11/05/17 [History Confirmed 11/05/17] PMH/Surg Hx/FS Hx/Imm Hx Previously Healthy: Yes Endocrine/Hematology History: Denies: Hx Bone Marrow Disease, Hx Diabetes, Hx Sickle Cell Disease, Hx Anemia, Hx Unexplained Bleeding Cardiovascular History: Reports: Hx Hypertension, Other Cardiovascular Problems/ Disorders - Cardio loop implant, Paroxysmal Atrial Fibrillation, Cardioverted x4 Denies: Hx Aneurysm, Hx Angina, Hx Angioplasty, Hx Auto Implanted Cardiovert Defib, Hx Cardiac Arrest, Hx Cardiomegaly, Hx Congenital Heart Disease, Hx Congestive Heart Failure, Hx Coronary Artery Disease, Hx Deep Vein Thrombosis, Hx Embolism, Hx Hypercholesterolemia, Hx Hypotension, Hx Pacemaker/ICD, Hx Peripheral Vascular Disease, Hx Rheumatic Fever, Hx Syncope, Hx Valvular Heart Disease Respiratory History: Reports: Hx Sleep Apnea Denies: Hx Asthma, Hx Chronic Bronchitis, Hx Chronic Obstructive Pulmonary Disease (COPD), Hx Cystic Fibrosis, Hx Lung Cancer, Hx Pleural Effusion, Hx Pneumonia, Hx Pulmonary Edema, Hx Pulmonary Embolism, Hx Seasonal Allergies, Other Respiratory Problems/Disorders GI History: Reports: Hx Gall Bladder Disease - removed Denies: Hx Cirrhosis, Hx Crohn's Disease, Hx Diverticulosis, Hx Gastroesophageal Reflux Disease, Hx Gastrointestinal Bleed, Hx Hiatal Hernia, Hx Irritable Bowel, Hx Jaundice, Hx Obstructive Bowel, Hx Ileostomy, Hx Pyloric Stenosis, Hx Ulcer, Other GI Disorders History: Denies: Hx Acute Renal Failure, Hx Benign Prostatic Hyperplasia, Hx Chronic Renal Failure, Hx Dialysis, Hx Kidney Infection, Hx Kidney Stones, Hx Renal Disease, Other Problems/Disorders Musculoskeletal History: Reports: Hx Arthritis, Hx Back Problems - chronic back pain, Hx Bursitis - trochanteric bursitis right hip, Hx Tendonitis - carpal tunnel, right wrist, Other Musculoskeletal History - Idiopathic aseptic necrosis of right femur Denies: Hx Congenital Bone Abnormalities, Hx Fibromyalgia, Hx Gout, Hx Orthopedic Injury, Hx Osteoporosis, Hx Scoliosis Sensory History: Reports: Hx Contacts or Glasses Denies: Hx Cataracts, Hx Eye Injury, Hx Eye Prosthesis, Hx Glaucoma, Hx Legally Blind, Hx Macular Degeneration, Hx Vision Problem, Hx Deafness, Hx Hearing Aid, Hx Hearing Problem, Other Sensory Impairments Opthamlomology History: Reports: Hx Contacts or Glasses Denies: Hx Cataracts, Hx Eye Injury, Hx Eye Prosthesis, Hx Glaucoma, Hx Legally Blind, Hx Macular Degeneration, Hx Vision Problem, Other Sensory Impairments Neurological History: Reports: Hx Headaches, Hx Migraine - occasional Denies: Hx Dementia, Hx Developmental Delay, Hx Nerve Disease, Hx Seizures, Hx Spinal Cord Injury, Hx Transient Ischemic Attacks (TIA), Other Neuro Impairments/Disorders Psychiatric History: Denies: Hx Anxiety, Hx Attention Deficit Hyperactivity Disorder, Hx Eating Disorder, Hx Depression, Hx Panic Disorder, Hx Post Traumatic Stress Disorder, Hx Inpatient Treatment, Hx Community Mental Health Tx, Hx Schizophrenia, Hx Bipolar Disorder, Hx Suicide Attempt, Hx of Violent Episodes Against Others, Hx Substance Abuse, Other Psychiatric Issues/Disorders - Cancer History Hx Chemotherapy: No Hx Radiation Therapy: No Hx Palliative Cancer Treatment: No - Surgical History Surgery Procedure, Year, and Place: Hysterectomy. Cholestectomy. 3 HEART STENTS PLACED 2000,[place]. ILINQ LOOP RECORDER 2018 Hx Anesthesia Reactions: Yes - nausea after hysterectomy, last procedures no issues Infectious Disease History: No Infectious Disease History: Reports: Hx Shingles - 06/2015, Hx Tuberculosis - Age 17 Denies: Hx Clostridium Difficile, Hx Hepatitis, Hx Human Immunodeficiency Virus (HIV), Hx of Known/Suspected MRSA, History Other Infectious Disease, Traveled Outside the [place] in Last 30 Days - Family History Known Family History: Positive: Cardiac Disease - Social History Occupation: Retired Lives: With Family Alcohol Use: Rare Hx Substance Use: No Substance Use Type: Reports: None Hx Tobacco Use: Yes Smoking Status (MU): Former Smoker Type: Cigarettes Amount Used/How Often: 1 ppd for 40+ years Length of Time of Smoking/Using Tobacco: 45 Have You Smoked in the Last Year: No Review of Systems Positive: Fever - subjective, Chills Positive: Chest Pain Positive: Shortness Of Breath Positive: Diarrhea, Nausea, Other - upset stomach. Negative: Abdominal Pain, Vomiting Negative: Other - back pain All Other Systems Reviewed And Are Negative: Yes Physical Exam - Summary Physical Exam Summary: Constitutional: Well-developed, Well-nourished, Alert. (-) Distressed Skin: Warm, Dry HENT: Normocephalic; Atraumatic Eyes: Conjunctiva normal Neck: Musculoskeletal ROM normal neck. (-) JVD, (-) Stridor, (-) Tracheal deviation Cardio: Irregular heart rate; Intact distal pulses; The pedal pulses are 2+ and symmetric. Radial pulses are 2+ and symmetric. May have hypovolemia and SOB could be related. Pulmonary/Chest wall: Effort normal. (-) Respiratory distress, (-) Wheezes, (-) Rales Abd: Soft, (-), epigastric tenderness, (-) Distension, (-) Guarding, (-) Rebound Musculoskeletal: (-) Edema Lymph: (-) Cervical adenopathy Neuro: Alert, Oriented x3 Psych: Mood and affect Normal Dx: PE or MA Triage Information Reviewed: Yes Vital Signs On Initial Exam: Initial Vitals Temp Pulse Resp BP Pulse Ox 97.8 F 60 16 118/69 99 11/05/17 07:19 11/05/17 07:19 11/05/17 07:19 11/05/17 07:19 11/05/17 07:19 Vital Signs Reviewed: Yes Diagnostics - Vital Signs Vital Signs Temp Pulse Resp BP Pulse Ox 11/05/17 07:19 97.8 F 60 16 118/69 99 - Laboratory Result Diagrams: 11/05/17 07:49 11/05/17 07:49 Lab Statement: Any lab studies that have been ordered have been reviewed, and results considered in the medical decision making process. - CT Chest/thorax CT Interpretation: No Acute Changes - IMPRESSION: NO CT EVIDENCE OF ACUTE PULMONARY EMBOLIC DISEASE CT Interpretation Completed By: Radiologist - Has been reviewed by provider. - EKG 0756 Cardiac Rate: Tachycardia - 121 bpm EKG Rhythm: Atrial Fibrillation ST Segment: Normal EKG Interpretation: Atrial fibrillation.? atrial activity Borderline repol abnormality, diffuse Re-Evaluation - Re-Evaluation First Eval Re-Evaluation Time: 10:54 Change: Worse Comment: bp 110, HR 110 bpm, dark diarrhea. Has had 2 hypertension episodes since entering ED. Complex Multi-Symp Course/Dx - Diagnoses Differential Diagnoses/HQI/PQRI: Other Provider Diagnoses: Diarrhea, Dehydration, Melena, Rapid atrial fibrillation, Hypotension - Physician Notifications Discussed Care Of Patient With: July Baker Time Discussed With Above Provider: 10:55 Instructed by Provider To: Admit As Inpatient Discharge - Sign-Out/Discharge Documenting (check all that apply): Patient Departure - Discharge Plan Condition: Stable Disposition: ADMITTED TO [facility] Patient Education Materials: Dehydration (ED), Melena (ED), A-fib (Atrial Fibrillation) (ED), Hypotension (ED) Referrals: Humberto Milner MD [Primary Care Provider] -
[2017-11-05] MEDS ORDERED: Ondansetron ODT TAB* 4 MG PO ONE (07:35)
[2017-11-05] MEDS ORDERED: NS 0.9% 1000 ML* 2,000 ML IV ONE (07:35)
[2017-11-05] MEDS ORDERED: Aspirin 81 mg CHEW TAB* 81 MG TAB.CHEW PO ONE (07:54)
[2017-11-05 08:00] LABS: Hematocrit 39 % (35-47); Hemoglobin 12.8 g/dl (12.0-16.0); Mean Corpuscular HGB Conc 33 g/dl (31-36); Mean Corpuscular Hemoglobin 29 pg (27-31); Mean Corpuscular Volume 89 fL (80-97); Mean Platelet Volume 7.1 um3 (7.4-10.4); Platelet Count 335 10^3/ul (150-450); Red Blood Count 4.39 10^6/ul (4.00-5.40); Red Cell Distribution Width 15 % (10.5-15)
--- OUTSIDE RECORDS SUMMARY | 2017-11-05 08:11 | XMS REPORT ---
:1945 External Reference #:[id number] Author Organization [place] [employer] [facility] Address [address] [place] [address] [place] [address] Phone [phone] Care Team Providers Name Role Phone Humberto Milner MD Primary Care Physician Unavailable Payers Type Date Identification Numbers Payment Provider Subscriber Health Maintenance Policy Number: [facility] Douglas Lu [facility] [place] ([facility]) [id number] PayID: [id number] [address] [address] [place] [address] Problems Date Description Provider Status Onset: 06/27/2015 Localized, primary osteoarthritis Shantell Dyer M.D. Active of the pelvic region and thigh Onset: 07/25/2015 Zoster with other complications Shantell Dyer M.D. Active Onset: 12/07/2015 Low back pain Shantell Dyer M.D. Active Onset: 12/13/2015 Paroxysmal atrial fibrillation Patricia Galeas M.D. Active Onset: 12/13/2015 Coronary arteriosclerosis in Patricia Galeas M.D. Active hoopa artery Onset: 12/13/2015 Essential hypertension Patricia aGleas M.D. 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 Active Onset: 12/04/2016 Inflammatory and toxic neuropathy Patricia Galeas M.D. 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 Active Onset: 06/24/2017 Preoperative cardiovascular Patricia Galeas M.D. 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 hours as needed for pain. Bactrim DS 10/04 Active Tablets 800-160mg 6tabs take 1 by mouth twice Gomez, a day for 3 M.D. days Restless Leg 09/06 Active qd Ashwin Blanchard Propafenone HCL 02/28 Active Tablets 225mg 180ta 1 tab by Patricia bs mouth twice Gudelia, a day M.D. Cpap Active Device using while Unknown / sleeping (not as much as she should be per patient) Potassium Chloride Active Tablets 10Meq 1 by mouth Unknown Jane ER /0000 ER every day Hydrocodone-Acetam Active Tablets 5-325mg 1 or 2 tabs Unknown inophen by mouth every 6-8 hours as needed for pain Xarelto 09/10 Hx Tablets 20mg 90tab 1 by mouth s every day Gudelia - M.DKarla 10/21 Cartia XT 09/06 Hx Caps ER 120mg 30cap Take 1 by I10 Kristen S 24HR s mouth daily Tucker, - with the N.P. 10/20 240mg for total of 360mg Diltiazem HCL 07/09 Hx Tablets 60mg 90tab 2 tablets I48.1 Patricia s am, 1 Gudelia, - tablet PM M.D. 10/21 Hydrocodone-Acetam 07/08 Hx Tablets 7.5-325mg 28tab take one s tab by Lo, - mouth every M.D. 10/21 8 hours needed for pain Payette 07/03 Hx Tablets 5-325mg 60tab Wtake 1-2 s tabs by Lo, - mouth every M.D. 07/08 4-6 hours /2017 as needed for pain. Propafenone HCL 02/19 Hx Tablets 225mg 60tab 1 tab po I48.0 Patricia s twice a day Gudelia, - (waiting to M.D. 02/18 start after ECG 02/19/17- has not been sent to pharmacy yet) Metoprolol 02/15 Hx Tablets 50mg 90tab 1/2 by I47.2 Patricia Succinate ER ER 24HR s mouth every Gudelia, - day ( M.D. 04/29 started medication change 04/26/17) Metoprolol / Hx Tablets 25mg 90tab 1 by mouth I47.2 Patricia Succinate ER /2016 ER 24HR s every day Buckner, - PM M.D. 02/15 Cartia XT 10/ Hx Caps ER 240mg 90cap 1 by mouth Patricia 24HR s every day Buckner, - M.D. 10/20 Demadex 01/03 Hx Tablets 20mg 90tab t ablet prn Patricia s swelling, Buckner, - previously M.D. 08/14 1 tablet PO /2017 3 days weekly and as recommended by ( Pt has not taken ) Lasix 11/30 Hx Tablets 20mg 30tab 1 by mouth s q day x 2 Buckner, - with M.D. 01/03 potassium then prn Klor-Con M10 11/30 Hx Tablets 10Meq 60tab 2 tab by Patricia ER s mouth with Gudelia, - demadex M.D. 09/05 afterrno ( Takes 2 tablets prn when takes Torsemide) ( pt has not taken) Medrol 10/22 Hx Tablets 4mg 21tab take as M54.12 Jah s directed F - per dosepacasimiro Parsons, 11/05 instruction 2017 s Methylprednisolone 09/28 Hx TBPK 4mg 1unit take as M25.512 Shantell s directed Gomez - M.DKarla 11/05 Meloxicam 08/06 Hx Tablets 15mg 60tab 1 by mouth M75.42 Shantell s every day Gomez, - M.D. 08/30 Hydrocodone-Acetam 06/28 Hx Tablets 7.5-325mg 30tab take one M25.511 Shantell ino s tab by Gomez, - mouth every M.D. 09/23 4 hours as /2017 needed for pain Sotalol HCL 06/07 Hx Tablets 80mg 180ta 1 tab by I48.1 Patricia bs mouth twice Gudelia, - a day M.D. 02/15 Xarelto 06/06 Hx Tablets 15mg 30tab 1 by mouth David /2016 s every day F. - at night Mauser, 09/10 M.D. Cyclobenzaprine 03/19 Hx Tablets 10mg 40tab 1 tablet by M79.604 Shantell HCL s mouth q8 Gomez, - hours as M.D. 06/19 needed muscle spasms (Pt not taking) Payette Hx Tablets 10-325mg 1-2 by Unknown /0000 mouth - q4-6hr as 12/05 needed Valtrex Hx Tablets 500mg 1 by mouth Unknown /0000 twice a day - x 5 days 12/05 Diltiazem CD Hx Caps ER 240mg 1 by mouth Unknown / 24HR every day - 12/05 Aspirin Hx Tablets 81mg 1 by mouth Unknown /0000 every day - 12/05 Metoprolol Hx Tablets 50mg 90tab 1 by mouth I48.1 Patricia Tartrate / s daily Gudelia, - M.D. 06/07 Cartia XT Hx Caps ER 300mg 90cap 1 by mouth Patricia /0000 24HR s every day Gudelia, - Am M.D. 01/22 (Rivaroxaban) Hx 20mg one daily Patricia Xarelto / at hs Buckner, - M.D. 06/06 Magnesium Oxide Hx Capsules 400mg by mouth Unknown /0000 every day - 05/08 Restful Legs Hx Tablets 4 tablet Unknown /0000 - 02/14 G Hx Quick 4 tablet po Unknown /0000 Disolve morning - daily 08/14 (occasional /2017 4 tablet evening if needed ) ( Pt has not taken) Ibuprofen Hx Capsules 200mg 4 tablet po Unknown /0000 1-2 times - daily ( Pt 09/05 does not take) Medications Administered in Office Medication Date Status Form Strength Qnty SIG Indications Ordering Provider Inj, Administered Injection José Miguel Flores Regadenoson, 018 Lagos, 0.1 MG Ashwin, FACLeslie, FASNC Technetium TC Administered Injection José Miguel Flores [...] Miguel Flores [id number] [id number] Carleen Lagos M.D., FACC, Per Unit Dose FASNC Up To 40 Millicuries Depomedrol Administered Injection Shantell 40MG Catherine Dyer M.D. Depomedrol Administered Injection Shantell 40MG Catherine Dyer M.D. Depomedrol Administered Injection Shantell 40MG Catherine Dyer M.D. Depomedrol Administered Injection Shantell 40MG Catherine Dyer M.D. Vital Signs Date Vital Result Comment 10/25/2017 Height 64 inches 5'4" Weight 175.00 lb BP Systolic 136 mmHg BP Diastolic 82 mmHg Body Temperature 98.4 F Pain Level 6 BMI (Body Mass Index) 30.0 kg/m2 10/02/2017 Height 64 inches 5'4" Weight 178.00 [...] Test Date Test Result H/L Range Note Laboratory Studies 10/18/2017 Anion Gap 8 mmol/L 2-11 BUN/Creatinine Ratio 24.6 High 8-20 Blood Urea Nitrogen 15 mg/dL 6-24 Calcium Level 8.8 mg/dL 8.6-10.3 Carbon Dioxide Level 25 mmol/L 22-32 Chloride Level 104 mmol/L 101-111 Creatinine 0.61 mg/dL 0.51-0.95 Estimated GFR () 116.7 Estimated GFR (Non- 96.4 Glucose Level 101 mg/dL High 70-100 Hematocrit 33 % Low 35-47 Hemoglobin 11.0 g/dL Low 12.0-16.0 Magnesium Level 2.0 mg/dL 1.9-2.7 Mean Platelet Volume 8.0 um3 7.4-10.4 Platelet Count 182 10^3/ul 150-450 Potassium Level 3.9 mmol/L 3.5-5.0 Sodium Level 137 mmol/L 135-145 Laboratory Studies 10/17/2017 International Ratio 1.31 High 0.77-1.02 (Anticoag Ther) Inr/Protime 10/02/2017 Inr 1.10 High 0.77-1.02 1 Laboratory test 10/02/2017 Partial Thrombo Time 35.1 seconds 26.0-36.3 1 , 2 finding PTT Basic Metabolic 10/02/2017 Sodium 141 mmol/L 135-145 1 Panel Potassium 4.2 mmol/L 3.5-5.0 1 Chloride 104 [...] 1 Urine Appearance Clear 1 Urine Specific Maynard 1.020 1.010-1.030 1 Urine pH 5.0 5-9 [...] Culture SEE RESULT BELOW 1, 4 Sensitivities Laboratory test finding 06/25/2017 TSH (Thyroid Stim 2.41 mcIU/mL 0.34- 5.60 Horm) Basic Metabolic Panel 06/25/2017 Sodium 139 mmol/L 133-145 Potassium 4.6 mmol/L 3.5-5.0 Chloride 104 mmol/L 101-111 Co2 Carbon Dioxide 27 mmol/L 22-32 Anion Gap 8 mmol/L 2-11 Glucose 104 mg/dL High 70-100 Blood Urea Nitrogen 18 mg/dL 6-24 Creatinine 0.85 mg/dL 0.51-0.95 BUN/Creatinine Ratio 21.2 High 8-20 Calcium 9.7 mg/dL 8.6-10.3 Egfr Non- 65.7 >60 Egfr 84.5 >60 5 CBC No Diff 06/25/2017 White Blood Count [...] Volume 8 um3 7.4-10.4 Basic Metabolic Panel 04/11/2017 Sodium 137 mmol/L [...] Natriuretic 178 pg/mL High 7 Peptide BNP Basic Metabolic Panel 01/22/2017 Sodium [...] Egfr 106.1 >60 8 Laboratory test finding 01/22/2017 Magnesium 2.0 mg/dL [...] Non- 91.5 >60 Egfr 117.6 >60 9 Laboratory test finding 06/29/2016 Magnesium 2.0 mg/dL 1.9-2.7 Arthritis Panel 06/20/2016 Uric Acid 5.4 mg/dL [...] (or dialysis) 4 SEE RESULT BELOW Name: MARBELLA MAXWELL : [address]: Shantell Dyer MD Acct: [id number] Unit: [id number] AGE: 72 Location[facility] Re10/02/17 SEX: F Status: REG REF SPEC: [id number] JUWAN: 10/02/17-[address] [facility] [address]: Shantell Dyer MD REQ: [id number] RECD: 10/02/17 STATUS: COMP _ SOURCE: URINE SPDESC: ORDERED: Urine Culture COMMENTS: SHANA 10/15 QUERIES: Urine Source: Clean Catch Procedure Result Reported Site Urine Culture Final 10/04/17- 748 ML Organism 1 ESCHERICHIA COLI [place] Count >100,000 (Many) CFU/ML 1. ESCHERICHIA COLI [...] . END OF REPORT DEPARTMENT OF PATHOLOGY, [address] [place] [address] Nathaniel De León M.D. Director [facility] # [id number] 5 Because ethnic data is not always [...] <15 (or dialysis) 10 Test Performed by: [address] [address] 11 REFERENCE VALUE <=1.0 (Negative) 12 REFERENCE VALUE <20.0 (Negative) 13 Tests for antibodies to dsDNA and BILL antigens are not performed automatically unless the KRYSTEN result is > or= 3.0 U. Studies performed at [facility] indicate that positive KRYSTEN results <3.0 U are rarely accompanied by positive second order tests. Test Performed by: [address] [address] Procedures Date CPT Code Description Status 10/15/2017 25391 THR Total Hip Replacement Completed 10/15/2017 71565 THR Total Hip Replacement Completed 09/18/2017 66932 Implantable Cardio System Loop Recorder Sys Remota Data Completed Acquist 09/18/2017 82637 Interrogation Dev Loop Recorder Incl Physician Completed Analysis,Rev,Repor 09/06/2017 07637 EKG Tracing & Interpretation Completed 08/22/2017 57935 EKG Tracing & Interpretation Completed 08/22/2017 52079 EKG Tracing & Interpretation Completed 08/18/2017 14061 Implantable Cardio System Loop Recorder Sys Remota Data Completed Acquistio 08/18/2017 63544 Interrogation Dev Loop Recorder Incl Physician Completed Analysis,Rev,Repor 08/15/2017 98779 Cardioversion Completed 08/15/2017 82325 Moderate Sedation Services; Same Phys Intl 15 Mins; PT Completed >=5 Years 08/15/2017 83555 EKG, Interpretation Only Completed 07/30/2017 78520 EKG Tracing & Interpretation Completed 07/18/2017 37585 Implantable Cardio System Loop Recorder Sys Remota Data Completed Acquistio 07/18/2017 91833 Interrogation Dev Loop Recorder Incl Physician Completed Analysis,Rev,Repor 07/09/2017 88521 EKG Tracing & Interpretation Completed 07/02/2017 27524 Anterior Instrumentation 2-3 Vertebral Segments Completed 07/02/2017 19534 Anterior Instrumentation 2-3 Vertebral Segments Completed 07/02/2017 92153 arthrodesis,anterior interbody incl disc space Completed prep,discectomy,de 07/02/2017 82383 arthrodesis,anterior interbody incl disc space Completed prep,discectomy,de 07/02/2017 57989 Allograft For Spine Surgery,Structural (Bone Bank) Completed 06/25/2017 93116 Pulmonary Function><Bronchodil Completed 06/24/2017 01687 EKG Tracing & Interpretation Completed 06/17/2017 56403 Implantable Cardio System Loop Recorder Sys Remota Data Completed Acquistio 06/17/2017 44313 Interrogation Dev Loop Recorder Incl Physician Completed Analysis,Rev,Repor 05/28/2017 84818 Stress Test Completed 05/28/2017 34710 Myocardial Perfusion Imaging Tomographic (Spect) Completed Multiple Studies 05/17/2017 24698 ECHO Transthoracic, Real-Time 2D With Doppler And Color Completed Flow 05/17/2017 80069 ECHO Transthoracic, Real-Time 2D With Doppler And Color Completed Flow 05/17/2017 60673 Implantable Cardio System Loop Recorder Sys Remota Data Completed Acquistio 05/17/2017 00977 Interrogation Dev Loop Recorder Incl Physician Completed Analysis,Rev,Repor 04/29/2017 27390 EKG Tracing & Interpretation Completed 04/16/2017 80967 Implantable Cardio System Loop Recorder Sys Remota Data Completed Acquistio 04/16/2017 27905 Interrogation Dev Loop Recorder Incl Physician Completed Analysis,Rev,Repor 04/11/2017 26054 Moderate Sedation Services; Same Phys Intl 15 Mins; PT Completed >=5 Years 04/11/2017 10450 EKG, Interpretation Only Completed 04/11/2017 57010 Cardioversion Completed 03/28/2017 50047 EKG Tracing & Interpretation Completed 03/16/2017 69273 Implantable Cardio System Loop Recorder Sys Remota Data Completed Acquistio 03/16/2017 06990 Interrogation Dev Loop Recorder Incl Physician Completed Analysis,Rev,Repor 03/08/2017 56319 EKG Tracing & Interpretation Completed 03/08/2017 20444 EKG Tracing & Interpretation Completed 03/08/2017 40537 EKG Tracing & Interpretation Completed 03/08/2017 16472 EKG Tracing & Interpretation Completed 02/28/2017 55577 EKG Tracing & Interpretation Completed 02/28/2017 23911 EKG Tracing & Interpretation Completed 02/19/2017 30614 EKG Tracing & Interpretation Completed 02/19/2017 93013 EKG Tracing & Interpretation Completed 02/15/2017 48759 EKG Tracing & Interpretation Completed 02/13/2017 87941 Implantable Cardio System Loop Recorder Sys Remota Data Completed Acquistio 02/13/2017 02255 Interrogation Dev Loop Recorder Incl Physician Completed Analysis,Rev,Repor 01/22/2017 04404 EKG Tracing & Interpretation Completed 01/13/2017 33792 Interrogation Dev Loop Recorder Incl Physician Completed Analysis,Rev,Repor 01/13/2017 28707 Implantable Cardio System Loop Recorder Sys Remota Data Completed Acquistio 12/13/2016 76867 Implantable Cardio System Loop Recorder Sys Remota Data Completed Acquistio 12/13/2016 72278 Interrogation Dev Loop Recorder Incl Physician Completed Analysis,Rev,Repor 11/12/2016 65419 Implantable Cardio System Loop Recorder Sys Remota Data Completed Acquistio 11/12/2016 35540 Interrogation Dev Loop Recorder Incl Physician Completed Analysis,Rev,Repor 10/11/2016 79847 Implant Cardiac Loop Recorder Completed 10/02/2016 55375 Sleep Study Unattended,HRT Rate,Oxygen Sat,Resp Completed Effort/Airflow 08/31/2016 15915 EKG Tracing & Interpretation Completed 08/06/2016 27589 Inject/Drain Joint/Bursa Major W/O US Completed 08/03/2016 50387 EKG Tracing & Interpretation Completed 06/29/2016 40971 Cardioversion Completed 06/29/2016 85639 EKG, Interpretation Only Completed 06/28/201648931 Inject/Drain Joint/Bursa Major W/O US Completed 06/18/201674026 Inject/Drain Joint/Bursa Major W/O US Completed 06/07/2016 47494 EKG Tracing & Interpretation Completed 05/22/2016 58046 Stress Test Completed 05/22/2016 05125 Myocardial Perfusion Imaging Tomographic (Spect) Completed Multiple Studies 03/25/2016 56786 Holter Monitor Review (24 hr)dr review & interp only Completed 03/21/2016 46667 ECG Monitor/Recording W/Visual Superimposition Scanning Completed 03/16/2016 41103 EKG Tracing & Interpretation Completed 03/02/201696469 Inject/Drain Joint/Bursa Major W/O US Completed 02/20/2016 Injection Single Tendon Origin/Insertion Completed 02/10/2016 Injection Single Tendon Origin/Insertion Completed 12/13/2015 15207 EKG Tracing & Interpretation Completed 11/30/2015 82468 Color Flow Doppler/Interp & Reprt Completed 11/30/2015 39650 Pulse Wave/Continuous-Interp.RPT Completed 11/30/2015 77106 Echocardiography, Transesophageal, Real Time W/Image 2D Completed W/W/O M-M 11/30/2015 93137 EKG, Interpretation Only Completed 11/30/2015 60598 Cardioversion Completed 06/27/201536107 Inject/Drain Joint/Bursa Major W/O US Completed 07/20/2014 62593 ECHO Transthorasic Realtime 2D W Doppler & Color Flow Completed Hosp 07/19/2014 50686 EKG, Interpretation Only Completed Encounters Type Date Location Provider CPT E/M Dx Office Visit 09/06/2017 [facility] Chuy Ceballos, N.P. 09888 I48.1 3:30p Tile Mason Z95.818 I25.119 I10 Z01.810 M87.051 M70.61 Office Visit 09/06/2017 1:45p [facility] Shantell Dyer M.D. 77427 M16.11 C.M.A. M87.051 M70.61 M25.551 Office Visit 08/22/2017 2:00p [facility] Chuy Ceballos 50755 Z95.818 Tile Mason N.P. I48.91 I10 Office Visit 07/30/2017 9:30a [facility] Of Kristen Ceballos, 07272RWR I10 [facility] N.P. I48.1 Office Visit 07/09/2017 11:30a [facility] Of Patricia Galeas M.D. 49562 I48.1 [facility] Office Visit 07/03/2017 10:13a [facility] [address] I48.91 Hospitalists MANAGER EMS M54.12 I10 Office Visit 07/02/2017 10[facility] [address] I48.91 Assoc,pc Hospitalists N.P. M54.12 I10 Office Visit 06/24/2017 1:50p [facility] Of Patricia Galeas M.D. 77137 Z01.810 [facility] I48.0 I25.119 R06.02 M50.821 Office Visit 06/19/2017 2:30p [facility] Jeffery Blanchard 61792 M47.812 Of Charlee Christopher Office Visit 04/29/2017 12:15p [facility] Kandice Galeas M.D. 50821 I48.0 [facility] R06.02 G47.33 I25.119 Office Visit 03/28/2017 2:30p [facility] Kandice Galeas M.D. 84690 I48.1 [facility] R06.02 Z95.818 Office Visit 02/19/2017 1:30p [facility] Of CHERELLE Quintana 43403 I48.0 R06.02 Z95.818 Office Visit 02/15/2017 2:45p [facility] Kandice Galeas M.D. 78131 I48.0 Charlee G47.33 I25.10 R06.02 Office Visit 02/12/2017 1:00p [facility] Noemí Draper, 59083 G47.33 Services Of [facility] SAYRA, RN, COMMERCIAL LOAN ASSISTANT-BC G47.14 F40.240 Office Visit 01/28/2017 3:20p [facility] Jeffery Blanchard 14497 M47.812 Of Charlee Christopher Office Visit 01/22/2017 8:45a [facility] Of Gonzalez Valderrama, 89821 I47.2 [facility] DO FACC I25.2 I25.10 I48.0 Office Visit 12/12/2016 1:15p [facility] Noemí Draper, 22379 G47.33 Services Of [facility] SAYRA RN, [facility] Office Visit 12/04/2016 2:30p [facility] Of Patricia Galeas M.D. 30992 H81.10 [facility] G62.9 R60.0 I48.0 R42 Office Visit 11/26/2016 1:30p [facility] Jeffery Blanchard, 80333 M50.821 Of [facility] M.D. Office Visit 11/05/2016 1:00p [facility] Kimi Hurt PA-C 55100 M54.12 Of [facility] Office Visit 10/31/2016 1:15p [facility] Noemí Draper, 75926 G47.33 Services Of [facility] JORDY COLBERT, [facility] G47.10 F40.240 Office Visit 10/22/2016 2:00p [facility] Jah Parsons, 93123 M47.22 Familia ROBERTSON M75.52 Office Visit 10/12/2016 2:15p [facility] Shantell Dyer M.D. 98062 M25.512 C.MJessica M75.42 S46.012A Office Visit 09/28/2016 2:30p [facility] Shantell Dyer M.D. 43532 M25.512 CEthan M75.42 S46.012A Office Visit 09/24/2016 2:45p [facility] [place] [address] R06.83 Services Of [facility] G47.10 R51 R45.1 R55 Office Visit 08/31/2016 1:00p [facility] Of [facility] Patricia Galeas M.D. 39565 R55 I48.0 R32 Office Visit 08/24/2016 1:45p [facility] Shantell Dyer M.D. 36142 M25.512 CEthan M75.42 S46.012A Office Visit 08/06/2016 3:00p [facility] Shantell Dyer M.D. 11476 M25.512 C.M.A. M75.42 S46.012A W19.xxxA M87.051 M87.052 M25.551 M25.552 Office Visit 08/03/2016 2:30p [facility] Of [facility] CHERELLE Orona 87262 I48.0 M25.511 M25.551 M25.512 Office Visit 07/06/2016 2:30p [facility] Shantell Dyer M.D. 73151 M25.551 C.M.A. M70.61 Office Visit 06/28/2016 2:00p [facility] Nadja Carreon, 34101 M25.511 Of Familia VILLARREAL S46.011A Office Visit 06/18/2016 1:15p [facility] Shantell Dyer M.D. 76705 M25.552 C.M.A. M25.551 M70.61 M70.62 M25.511 M25.512 M75.41 M75.42 Office Visit 06/07/2016 3:15p [facility] Of Patricia Galeas M.D. 65136 I48.1 [facility] R06.02 G47.9 I25.10 Office Visit 05/08/2016 1:30p [facility] Of Patricia Galeas M.D. 31304 R09.02 [facility] I48.1 Z68.31 I25.10 Office Visit 03/19/2016 2:15p [facility] Shantell Dyer M.D. 75089 M79.604 C.M.A. M79.605 Office Visit 03/16/2016 2:00p [facility] Of [facility] CHERELLE Orona 46907 I48.91 R09.02 Office Visit 03/02/2016 2:00p [facility] Shantell Dyer M.D. 17269 M65.221 C.M.A. M25.512 M25.511 M75.41 M75.42 Office Visit 02/10/2016 11:15a [facility] Shantell Dyer M.D. 41322 M25.551 C.M.A. M25.552 M16.11 M70.61 M70.62 Office Visit 12/13/2015 4:00p [facility] Of Patricia Galeas M.D. 01861 I48.0 [facility] I25.10 I10 E78.2 R06.01 G47.9 Office Visit 12/07/2015 8:00a [facility] Shantell Dyer M.D. 88011 M54.5 C.M.A. Office Visit 11/30/2015 7:54a [facility], 15723 I48.91 Hospitalists Ashwin I25.10 E87.6 I10 Office Visit 11/30/2015 3:52p [facility] Of Patricia Galeas M.D. 37638 I48.0 Tile Mason Office Visit 11/29/2015 7:54a [facility] Gigi, 00496 I48.91 Hospitalists Ashwin I25.10 E87.6 I10 Office Visit 07/25/2015 9:45a [facility] Shantell Dyer M.D. 90174 M16.11 C.M.A. M70.61 M25.551 B02.8 Office Visit 07/04/2015 12:45p [facility] Shantell Dyer M.D. 20410 M16.11 C.M.A. M70.61 M25.551 Office Visit 06/27/2015 10:00a [facility] Shantell Dyer M.D. 73838 M16.11 C.M.A. M70.61 M25.551 Office Visit 07/20/2014 8:57a [facility], Kristen Ceballos, 46557 558.9 Hospitalists N.P. 427.31 414.00 276.8 Office Visit 07/19/2014 8:57a [facility], Kristen Ceballos, 76916 558.9 Hospitalists N.P. 427.31 414.00 276.8 Plan of Care Future Appointment(s):11/25/2017 8:15 am - Shantell Dyer M.D. at [facility] C.MKarlaA.10/25/2017 - Shantell Dyer M.D.Z47.1 Aftercare following joint replacement surgeryFollow up:Follow up: 1 lnvbgW44.11 Unilateral primary osteoarthritis, right hipM25.551 Pain in right hip
[2017-11-05 08:12] LABS: INR 1.44 (0.77-1.02)
--- OUTSIDE RECORDS SUMMARY | 2017-11-05 08:12 | XMS REPORT ---
:1945 External Reference #:[id number] Author Organization [facility] Address [address] [place] [address] [place] [address] Phone [phone] Care Team Providers Name Role Phone Humberto Milner MD Primary Care Physician Unavailable Payers Type Date Identification Numbers Payment Provider Subscriber Health Maintenance Policy Number: [facility] [place] [place] [id number] PayID: [id number] [address] [address] [place] [address] Problems Date Description Provider Status Onset: 06/27/2015 Localized, primary osteoarthritis Shantell Dyer M.D. Active of the pelvic region and thigh Onset: 07/25/2015 Zoster with other complications Shantell Dyer M.D. Active Onset: 12/07/2015 Low back pain Shantell Dyer M.D. Active Onset: 12/13/2015 Paroxysmal atrial fibrillation Patricia Galeas M.D. Active Onset: 12/13/2015 Coronary arteriosclerosis in Patricia Galeas M.D. Active [place] artery Onset: 12/13/2015 Essential hypertension Patricia Galeas [...] apnea syndrome Noemí Draper DNP, RN, Active BOOT TURNER-BC Onset: 10/31/2016 Hypersomnia Noemí Draper DNP, RN, Active BOOT TURNER-BC Onset: 11/26/2016 Cervical disc disorder Jeffery Blanchard M.D. Active Onset: 12/04/2016 Inflammatory and toxic neuropathy Patricia Galeas M.D. 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 Active Onset: 06/24/2017 Preoperative cardiovascular Patricia Galeas M.D. 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 Active art w unsp ang pctrs Onset: 08/09/2017 Convalescence after surgery Jeffery Blanchard M.D. 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 lunch and 1/2 tablets PM Hydrocodone-Acetam 07/08 Active Tablets 7.5-325mg 28tab take one s tab by Lo, mouth every M.DKarla 8 hours as needed for pain Propafenone HCL 02/28 Active Tablets 225mg 180ta 1 tab by Patricia bs mouth twice Gudelia, a day M.DKarla Cartia XT 01/22 Active Caps ER 240mg 90cap 1 by mouth 24HR s every day Ashwin Galeas Cpap Active Device using while Unknown /0000 sleeping (not as much as she should be per patient) [place] 07/03 Hx Tablets 5-325mg 60tab Wtake 1-2 s tabs by Lo, - mouth every M.D. 07/08 4-6 hours /2017 as needed for pain. Propafenone HCL 02/19 Hx Tablets 225mg 60tab 1 tab po I48.0 s twice a day Baldwin, - (waiting to Ashwin 02/18 start after ECG 02/19/17- has not been sent to pharmacy yet) Metoprolol 02/15 Hx Tablets 50mg 90tab 1/2 by I47.2 Patricia Succinate ER 24HR s mouth every Baldwin, - day ( M.D. 04/29 medication change 04/26/17) Metoprolol 01/22 Hx Tablets 25mg 90tab 1 by mouth I47.2 Patricia Succinate ER 24HR s every day Baldwin, - PM M.D. 02/15 Demadex 01/03 Hx Tablets 20mg 90tab t ablet prn s swelling, Gudelia, - previously M.D. 08/14 1 tablet PO /2017 3 days weekly and as recommended by ( Pt has not taken ) Lasix 11/30 Hx Tablets 20mg 30tab 1 by mouth Patricia s q day x 2 Baldwin, - with M.D. 01/03 potassium then prn Klor-Con M10 11/30 Hx Tablets 10Meq 60tab 2 tab by Patricia ER s mouth with Baldwin, - demadex M.D. 09/05 afterrnoon ( Takes [...] tab by I48.1 Patricia bs mouth twice Baldwin, - a day M.D. 02/15 Xarelto 06/06 Hx Tablets 15mg 30tab 1 by mouth David s every day F. - at night Mauser, 09/10 M.D. Cyclobenzaprine 03/19 Hx Tablets 10mg 40tab 1 tablet by M79.604 Shantell HCL s mouth q8 Gomez, - hours as M.D. 06/19 needed muscle spasms (Pt not taking) [place] Hx Tablets 10-325mg 1-2 by Unknown /0000 [...] mouth I48.1 Patricia Tartrate /0000 s daily Gudelia, - M.D. 06/07 Cartia XT Hx Caps ER 300mg 90cap 1 by mouth Patricia /0000 24HR s every day Baldwin, - Am M.D. 01/22 (Rivaroxaban) Hx 20mg one daily Patricia Xarelto /0000 at hs Baldwin, - M.D. 06/06 Magnesium Oxide Hx Capsules [...] Miguel Flores 99M 017 Carleen Lagos M.D., [facility], Per Unit Dose FASNC Up To 40 [...] 1 Urine Appearance Clear 1 Urine Specific [place] 1.020 1.010-1.030 1 Urine pH 5.0 5-9 [...] [address]: Shantell Dyer MD Acct: [id number] Unit: [id number] AGE: 72 Location: [facility] Re10/02/17 SEX: F Status: REG REF SPEC: [id number] JUWAN: 10/02/17-[address] [facility] [address]: Shantell Dyer MD REQ: [id number] RECD: 10/02/17 STATUS: COMP _ SOURCE: URINE SPDESC: ORDERED: Urine Culture COMMENTS: SHANA 10/15 QUERIES: Urine Source: Clean Catch Procedure Result Reported Site Urine Culture Final 10/04/17- 0749 ML Organism 1 ESCHERICHIA COLI Mobile Count >100,000 (Many) CFU/ML 1. ESCHERICHIA COLI [...] . END OF REPORT DEPARTMENT OF PATHOLOGY, [address] [place] [address] Nathaniel De León M.D. Director [facility] # [id number] 5 Because ethnic data is not always [...] <15 (or dialysis) 10 Test Performed by: [facility] - [address] [address] 11 REFERENCE VALUE <=1.0 (Negative) 12 REFERENCE VALUE <20.0 (Negative) 13 Tests for antibodies to dsDNA and BILL antigens are not performed automatically unless the KRYSTEN result is > or= 3.0 U. Studies performed at [facility] indicate that positive KRYSTEN results <3.0 U are rarely accompanied by positive second order tests. Test Performed by: [facility] - [address] [address] Procedures Date CPT Code Description Status 09/18/2017 96039 Implantable Cardio System Loop Recorder Sys Remota Data Completed Acquistio 09/18/2017 84880 Interrogation Dev Loop Recorder Incl Physician Completed Analysis,Rev,Repor 09/06/2017 34599 EKG Tracing & Interpretation Completed 08/22/2017 67325 EKG Tracing & Interpretation Completed 08/22/2017 26073 EKG Tracing & Interpretation Completed 08/18/2017 34532 Implantable Cardio System Loop Recorder Sys Remota Data Completed Acquistio 08/18/2017 26521 Interrogation Dev Loop Recorder Incl Physician Completed Analysis,Rev,Repor 08/15/2017 92127 Moderate Sedation Services; Same Phys Intl 15 Mins; PT Completed >=5 Years 08/15/2017 10043 Cardioversion Completed 07/30/2017 57734 EKG Tracing & Interpretation Completed 07/18/2017 63561 Interrogation Dev Loop Recorder Incl Physician Completed Analysis,Rev,Repor 07/18/2017 13265 Implantable Cardio System Loop Recorder Sys Remota Data Completed Acquistio 07/09/2017 14049 EKG Tracing & Interpretation Completed 07/02/2017 07473 Anterior Instrumentation 2-3 Vertebral Segments Completed 07/02/2017 26473 Anterior Instrumentation 2-3 Vertebral Segments Completed 07/02/2017 27505 arthrodesis,anterior interbody incl disc space Completed prep,discectomy,de 07/02/2017 56899 arthrodesis,anterior interbody incl disc space Completed prep,discectomy,de 07/02/2017 89043 Allograft For Spine Surgery,Structural (Bone Bank) Completed 06/25/2017 18581 Pulmonary Function><Bronchodil Completed 06/24/2017 53401 EKG Tracing & Interpretation Completed 06/17/2017 60463 Interrogation Dev Loop Recorder Incl Physician Completed Analysis,Rev,Repor 06/17/2017 91569 Implantable Cardio System Loop Recorder Sys Remota Data Completed Acquistio 05/28/2017 86936 Stress Test Completed 05/28/2017 43863 Myocardial Perfusion Imaging Tomographic (Spect) Completed Multiple Studies 05/17/2017 33571 ECHO Transthoracic, Real-Time 2D With Doppler And Color Completed Flow 05/17/2017 60475 ECHO Transthoracic, Real-Time 2D With Doppler And Color Completed Flow 05/17/2017 66940 Implantable Cardio System Loop Recorder Sys Remota Data Completed Acquistio 05/17/2017 85569 Interrogation Dev Loop Recorder Incl Physician Completed Analysis,Rev,Repor 04/29/2017 63653 EKG Tracing & Interpretation Completed 04/16/2017 79948 Implantable Cardio System Loop Recorder Sys Remota Data Completed Acquistio 04/16/2017 12149 Interrogation Dev Loop Recorder Incl Physician Completed Analysis,Rev,Repor 04/11/2017 58573 Cardioversion Completed 04/11/2017 61343 EKG, Interpretation Only Completed 04/11/2017 33510 Moderate Sedation Services; Same Phys Intl 15 Mins; PT Completed >=5 Years 03/28/2017 55395 EKG Tracing & Interpretation Completed 03/16/2017 41420 Implantable Cardio System Loop Recorder Sys Remota Data Completed Acquistio 03/16/2017 08091 Interrogation Dev Loop Recorder Incl Physician Completed Analysis,Rev,Repor 03/08/2017 31584 EKG Tracing & Interpretation Completed 03/08/2017 37099 EKG Tracing & Interpretation Completed 03/08/2017 64856 EKG Tracing & Interpretation Completed 03/08/2017 55473 EKG Tracing & Interpretation Completed 02/28/2017 18815 EKG Tracing & Interpretation Completed 02/28/2017 56616 EKG Tracing & Interpretation Completed 02/19/2017 69047 EKG Tracing & Interpretation Completed 02/19/2017 31422 EKG Tracing & Interpretation Completed 02/15/2017 69383 EKG Tracing & Interpretation Completed 02/13/2017 65442 Implantable Cardio System Loop Recorder Sys Remota Data Completed Acquistio 02/13/2017 67992 Interrogation Dev Loop Recorder Incl Physician Completed Analysis,Rev,Repor 01/22/2017 42290 EKG Tracing & Interpretation Completed 01/13/2017 11777 Implantable Cardio System Loop Recorder Sys Remota Data Completed Acquistio 01/13/2017 70010 Interrogation Dev Loop Recorder Incl Physician Completed Analysis,Rev,Repor 12/13/2016 67777 Interrogation Dev Loop Recorder Incl Physician Completed Analysis,Rev,Repor 12/13/2016 78126 Implantable Cardio System Loop Recorder Sys Remota Data Completed Acquistio 11/12/2016 22771 Implantable Cardio System Loop Recorder Sys Remota Data Completed Acquistio 11/12/2016 45356 Interrogation Dev Loop Recorder Incl Physician Completed Analysis,Rev,Repor 10/11/2016 38281 Implant Cardiac Loop Recorder Completed 10/02/2016 93237 Sleep Study Unattended,HRT Rate,Oxygen Sat,Resp Completed Effort/Airflow 08/31/2016 32303 EKG Tracing & Interpretation Completed 08/06/2016 85407 Inject/Drain Joint/Bursa Major W/O US Completed 08/03/2016 28504 EKG Tracing & Interpretation Completed 06/29/2016 98907 EKG, Interpretation Only Completed 06/29/2016 48111 Cardioversion Completed 06/28/2016 82899 Inject/Drain Joint/Bursa Major W/O US Completed 06/18/201640056 Inject/Drain Joint/Bursa Major W/O US Completed 06/07/2016 39199 EKG Tracing & Interpretation Completed 05/22/2016 31799 Stress Test Completed 05/22/2016 70208 Myocardial Perfusion Imaging Tomographic (Spect) Completed Multiple Studies 03/25/2016 96548 Holter Monitor Review (24 hr)dr review & interp only Completed 03/21/2016 80075 ECG Monitor/Recording W/Visual Superimposition Scanning Completed 03/16/2016 55968 EKG Tracing & Interpretation Completed 03/02/201654470 Inject/Drain Joint/Bursa Major W/O US Completed 02/20/201658885 Injection Single Tendon Origin/Insertion Completed 02/10/201697652 Injection Single Tendon Origin/Insertion Completed 12/13/2015 19955 EKG Tracing & Interpretation Completed 11/30/2015 32317 Color Flow Doppler/Interp & Reprt Completed 11/30/2015 82966 Pulse Wave/Continuous-Interp.RPT Completed 11/30/2015 62869 Echocardiography, Transesophageal, Real Time W/Image 2D Completed W/W/O M-M 11/30/2015 26500 EKG, Interpretation Only Completed 11/30/2015 22957 Cardioversion Completed 06/27/201574485 Inject/Drain Joint/Bursa Major W/O US Completed 07/20/2014 01518 ECHO Transthorasic Realtime 2D W Doppler & Color Flow Completed Hosp 07/19/2014 74920 EKG, Interpretation Only Completed Encounters Type Date Location Provider CPT E/M Dx Office Visit 09/06/2017 [facility] Kristen Ceballos, N.P. 78358 I48.1 3:30p [employer] Z95.818 I25.119 I10 Z01.810 M87.051 M70.61 Office Visit 09/06/2017 1:45p [facility] Shantell Dyer M.D. 09359 M16.11 C.M.A. M87.051 M70.61 M25.551 Office Visit 08/22/2017 2:00p [facility] Chuy Ceballos 27387 Z95.818 [employer] N.P. I48.91 I10 Office Visit 07/30/2017 9:30a [facility] Of Kristen Ceballos, 734[address]WVU I10 [facility] N.P. I48.1 Office Visit 07/09/2017 11:30a [facility] Of Patricia Galeas M.D. 75506 I48.1 [facility] Office Visit 07/03/2017 10:13a [facility] 78652 I48.91 Hospitalists BANJO REPAIR PERSON M54.12 I10 Office Visit [facility]/02[facility]2017 [facility] [address] I48.91 Assoc, Hospitalists N.P. M54.12 I10 Office Visit 06/24/2017 1:50p [facility] Of Patricia Galeas M.D. 98073 Z01.810 [facility] I48.0 I25.119 R06.02 M50.821 Office Visit 06/19/2017 2:30p [facility] Jeffery Blanchard 03587 M47.812 Of Charlee Christopher Office Visit 04/29/2017 12:15p [facility] Of Patricia Galeas M.D. 53327 I48.0 [facility] R06.02 G47.33 I25.119 Office Visit 03/28/2017 2:30p [facility] Kandice Galeas M.D. 79696 I48.1 Charlee R06.02 Z95.818 Office Visit 02/19/2017 1:30p [facility] Of CHERELLE Quintana 27162 I48.0 R06.02 Z95.818 Office Visit 02/15/2017 2:45p [facility] Of Patricia Galeas M.D. 15483 I48.0 Charlee G47.33 I25.10 R06.02 Office Visit 02/12/2017 1:00p [facility] Noemí Draper, 52597 G47.33 Services Of [facility] SAYRA, RN, [employer]OT TURNER-BC G47.14 F40.240 Office Visit 01/28/2017 3:20p [facility] Jeffery Blanchard 58975 M47.812 Of Charlee Christopher Office Visit 01/22/2017 8:45a [facility] Of Gonzalez Valderrama, 76682 I47.2 [facility] DO FACC I25.2 I25.10 I48.0 Office Visit 12/12/2016 1:15p [facility] Noemí Draper, 85169 G47.33 Services [facility] SAYRA RN, [facility] Office Visit 12/04/2016 2:30p [facility] Of Patricia Galeas M.D. 69069 H81.10 [facility] G62.9 R60.0 I48.0 R42 Office Visit 11/26/2016 1:30p [facility] Jeffery Blanchard, 91957 M50.821 Of [facility] M.D. Office Visit 11/05/2016 1:00p [facility] Services Kimi Hurt PA-C 52412 M54.12 Of [facility] Office Visit 10/31/2016 1:15p [facility] Sleep Noemí Draper, 97442 G47.33 Services [facility] JORDY COLBERT, [facility] G47.10 F40.240 Office Visit 10/22/2016 2:00p [facility] Jah Parsons, 51777 M47.22 Familia ROBERTSON M75.52 Office Visit 10/12/2016 2:15p [facility] Shantell Dyer M.D. 15701 M25.512 C.MKarlaAKarla M75.42 S46.012A Office Visit 09/28/2016 2:30p [facility] Shantell Dyer M.D. 29625 M25.512 Familia M75.42 S46.012A Office Visit 09/24/2016 2:45p Pulmonology [place] [address] R06.83 Services Of [facility] G47.10 R51 R45.1 R55 Office Visit 08/31/2016 1:00p [facility] Of [facility] Patricia Galeas M.D. 60767 R55 I48.0 R32 Office Visit 08/24/2016 1:45p [facility] Shantell Dyer M.D. 35602 M25.512 Familia M75.42 S46.012A Office Visit 08/06/2016 3:00p [facility] Shantell Dyer M.D. 14100 M25.512 C.M.A. M75.42 S46.012A W19.xxxA M87.051 M87.052 M25.551 M25.552 Office Visit 08/03/2016 2:30p [facility] Of [facility] CHERELLE Orona 80996 I48.0 M25.511 M25.551 M25.512 Office Visit 07/06/2016 2:30p [facility] Shantell Dyer M.D. 62768 M25.551 C.M.A. M70.61 Office Visit 06/28/2016 2:00p [facility] Nadja Carreon, 96390 M25.511 Of Familia VILLARREAL S46.011A Office Visit 06/18/2016 1:15p [facility] Shantell Dyer M.D. 72813 M25.552 C.M.A. M25.551 M70.61 M70.62 M25.511 M25.512 M75.41 M75.42 Office Visit 06/07/2016 3:15p [facility] Of Patricia Galeas M.D. 64027 I48.1 [facility] R06.02 G47.9 I25.10 Office Visit 05/08/2016 1:30p [facility] Of Patricia Galeas M.D. 68817 R09.02 [facility] I48.1 Z68.31 I25.10 Office Visit 03/19/2016 2:15p [facility] Shantell Dyer M.D. 97711 M79.604 C.M.A. M79.605 Office Visit 03/16/2016 2:00p [facility] Of [facility] CHERELLE Orona 91077 I48.91 R09.02 Office Visit 03/02/2016 2:00p [facility] Shantell Dyer M.D. 07360 M65.221 C.M.A. M25.512 M25.511 M75.41 M75.42 Office Visit 02/10/2016 11:15a [facility] Shantell Dyer M.D. 44337 M25.551 C.M.A. M25.552 M16.11 M70.61 M70.62 Office Visit 12/13/2015 4:00p [facility] Of Patricia Galeas M.D. 41550 I48.0 [facility] I25.10 I10 E78.2 R06.01 G47.9 Office Visit 12/07/2015 8:00a [facility] Shantell Dyer M.D. 26243 M54.5 C.M.A. Office Visit 11/30/2015 7:54a [facility], Jad Yu, 55838 I48.91 Hospitalists Ashwin I25.10 E87.6 I10 Office Visit 11/30/2015 3:52p [facility] Of Patricia Galeas M.D. 43672 I48.0 [employer] Office Visit 11/29/2015 7:54a [facility], Jad Yu, 29153 I48.91 Hospitalists Ashwin I25.10 E87.6 I10 Office Visit 07/25/2015 9:45a [facility] Shantell Dyer M.D. 36698 M16.11 C.M.A. M70.61 M25.551 B02.8 Office Visit 07/04/2015 12:45p [facility] Shantell Dyer M.D. 16339 M16.11 C.M.A. M70.61 M25.551 Office Visit 06/27/2015 10:00a [facility] Shantell Dyer M.D. 87967 M16.11 C.M.A. M70.61 M25.551 Office Visit 07/20/2014 8:57a [facility], Kristen Ceballos, 01683 558.9 Hospitalists N.P. 427.31 414.00 276.8 Office Visit 07/19/2014 8:57a [facility], Kristen Ceballos, 64246 558.9 Hospitalists N.P. 427.31 414.00 276.8 Plan of Care Future Appointment(s):10/25/2017 1:45 pm - Shantell Dyer M.D. at [facility].11/08/2017 11:00 am - Patricia Galeas M.D. at [facility]10/02/2017 - Shantell Dyer M.D.M25.551 Pain in right hipFollow up: Follow up: 2 weeks after tnubcfxN21.051 Idiopathic aseptic necrosis of right femur
[2017-11-05] MEDS ORDERED: Iohexol 350* (CONTRAST) 500 ML MDV IV ONE (08:28)
--- NOTE | 2017-11-05 09:22 | RAD ---
INDICATION: Chest pain. Short of breath. Evaluate for pulmonary embolus. COMPARISON: Chest x-ray October 02, 2017 TECHNIQUE: Axial source images were obtained from the thoracic inlet to the hemidiaphragms following administration of [address] angiographic technique was utilized. Coronal and sagittal reconstructed images were acquired. CHEST FINDINGS: Neck/thyroid: The visualized neck to include the thyroid appear normal. Chest wall: There are no acute abnormalities of the bony thorax or chest wall. There is no supraclavicular, infraclavicular, or axillary lymphadenopathy. Lungs : There are no pulmonary parenchymal masses or infiltrates. The pulmonary interstitium appears mildly prominent. There may be mild interstitial congestion. This should be correlated with the clinical findings, however.. There are no endobronchial lesions. Cardiomediastinal structures: There is no CT evidence of acute pulmonary embolic disease. The heart is normal mildly enlarged. There is no pericardial effusion. There is no evidence of aortic aneurysm or dissection. There is no mediastinal or hilar adenopathy. The esophagus appears normal. Pleura : There are no pleural-based masses or effusions. Other: None. IMPRESSION: NO CT EVIDENCE OF ACUTE PULMONARY EMBOLIC DISEASE
[2017-11-05] MEDS ORDERED: NS 0.9% 1000 ML* 1,000 ML IV ONE (10:30)
[2017-11-05 11:08] LABS: Hematocrit 35 % (35-47); Hemoglobin 11.8 g/dl (12.0-16.0); Mean Corpuscular HGB Conc 34 g/dl (31-36); Mean Corpuscular Hemoglobin 30 pg (27-31); Mean Corpuscular Volume 88 fL (80-97); Platelet Count 267 10^3/ul (150-450); Red Blood Count 3.99 10^6/ul (4.00-5.40); Red Cell Distribution Width 15 % (10.5-15); White Blood Count 5.6 10^3/ul (3.5-10.8)
[2017-11-05] MEDS ORDERED: Ondansetron INJ* 2 MG/ML VIAL IV PRN (12:15)
[2017-11-05] MEDS ORDERED: Acetaminophen TAB* 325 MG PO PRN (13:18)
[2017-11-05] MEDS: NS 0.9% 1000 ML* 1,000 ML IV SCH ×2 (13:34→23:51)
--- NOTE | 2017-11-05 14:46 | HP ---
CC: Dr. Humberto Milner; Dr. Patricia Galeas * HISTORY AND PHYSICAL: DATE OF ADMISSION: 11/05/17 PRIMARY CARE PROVIDER: Dr. Humberto Milner. PRIMARY ROLL ON WORKER: Dr. Patricia Galeas. ATTENDING PHYSICIAN: Dr. July Sanchez * (dictated by Meghna Stephenson NP). CHIEF COMPLAINT: Diarrhea and nausea. HISTORY OF PRESENT ILLNESS: Ms. Maxwell is a 72-year-old female with past medical history significant for coronary artery disease, paroxysmal atrial fibrillation, obstructive sleep apnea, hypertension, shingles, osteoarthritis, and tuberculosis as a child, who underwent a right total hip arthroplasty on 06/30. The patient states she has had an uneventful recovery and has been doing well. She states that yesterday, at lunch time, she and her had lunch. Later in the day, she started feeling hot and cold, and developed diarrhea and nausea. She was feeling better by 8 p.m., was able to tolerate some toast. She had not checked her temperature. She also developed a central chest tightness that she rated as a 2/10. She denied any shortness of breath. Feels as though her diarrhea is improving. She denied any palpitations or urinary symptoms. Due to her symptoms of continued diarrhea, she presented to the emergency room for further evaluation. While in the emergency room, the patient received aspirin, Zofran, a liter of normal saline. She underwent a CTA of her chest showing no signs of a PE. She had an EKG showing an atrial fibrillation with RVR and a rate of 120. Previous EKG from 10/17/17 showed an AFib at a rate of 88. She had labs that were unremarkable, troponin of 0.00. It was reported that while she was at CT, she had a dark stool. She denies any dark stools at home previous to this. The patient also reports not taking her a.m. medications this morning for her atrial fib. The patient denies any urinary symptoms. The hospitalists were asked to evaluate the patient for admission. PAST MEDICAL HISTORY: 1. Coronary artery disease. 2. Paroxysmal atrial fibrillation. 3. Obstructive sleep apnea, not currently on CPAP. 4. Hypertension. 5. Shingles. 6. Osteoarthritis. 7. TB. PAST SURGICAL HISTORY: 1. Status post right total hip arthroplasty on 10/15/17. 2. Status post cardiac stents x3. 3. Status post cholecystectomy. 4. Status post hysterectomy. MEDICATIONS: Home medications include: 1. Diltiazem 360 mg oral daily. 2. Xarelto 20 mg oral every evening. 3. Restful Legs supplement 4 tabs every evening. 4. Propafenone 225 mg oral twice daily. 5. Metoprolol XL 25 mg oral twice daily. 6. [place] 5/325 two tablets oral every 4 hours as needed for pain. ALLERGIES: LATEX, ADHESIVE TAPE, ASPIRIN, OXYCODONE. FAMILY HISTORY: The patient's father and brother have a history of coronary artery disease. Her mother has a history of diabetes. There is no family history of cancer. SOCIAL HISTORY: The patient quit smoking in 2001. She occasionally drinks alcohol. Denies recreational drug use. Her , Douglas Maxwell, and daughter, Chaya Joy, will be her surrogate decision makers in the event she is unable to make decisions for herself. REVIEW OF SYSTEMS: I performed an 11-point review of systems. All the pertinent positives and negatives are mentioned in the history of present illness. The remaining review of systems is negative. PHYSICAL EXAMINATION GENERAL APPEARANCE: The patient is alert, pleasant, and appears to be in no acute distress. VITAL SIGNS: Temperature 97.0, heart rate 119, respiratory rate 20, O2 sat 95% on room air, blood pressure 113/88. HEENT: Normocephalic, atraumatic. Pupils are equal and reactive to light. Extraocular movements are intact. NECK: Supple. RESPIRATORY: There is no accessory muscle use. The lungs are clear to auscultation bilaterally. CARDIOVASCULAR: Irregular rate and rhythm. S1 and S2 present. There are no murmurs, rubs, or gallops heard. ABDOMEN: Soft, nontender, nondistended. Bowel sounds present x4. EXTREMITIES: There is no lower extremity edema. DP and PT pulses are 2+ and symmetric. MUSCULOSKELETAL: There is no clubbing or cyanosis noted. The patient exhibits good strength in all extremities. NEUROLOGIC: The patient is alert and oriented x4. Cranial nerves II through XII are grossly intact. PSYCHOLOGICAL: The patient is calm and cooperative. SKIN: There are no rashes or abnormalities seen. DIAGNOSTIC STUDIES/LAB DATA: Sodium 139, potassium 4.0, chloride 104, CO2 26, BUN 11, creatinine 0.75, glucose 126. White blood cell count 6.0, hemoglobin 12.8, hematocrit 39, platelet count 335. Troponin 0.00. EKG shows an atrial fibrillation with RVR with a rate of 120. There are no acute signs of ischemia. Previous EKG from 10/17/17 shows an AFib with a rate of 88. Chest CTA from today. Radiologist's impression: No evidence for acute PE. IMPRESSION: Ms. Maxwell is a 72-year-old female with past medical history significant for coronary artery disease, paroxysmal atrial fibrillation, obstructive sleep apnea, hypertension, shingles, osteoarthritis, tuberculosis as a child, who presents to the emergency room with complaints of diarrhea and chest discomfort. ASSESSMENT/PLAN: 1. Atrial fibrillation with rapid ventricular response. I suspect this is secondary to the patient not taking her home medications this morning. I am going to continue her home medications withhold parameters. I am going to change her diltiazem extended release to short-acting due to some hypotension in the emergency room. I will continue her on her Xarelto. We will trend her troponins. 2. Hypotension. The patient had intermittently been hypotensive in the emergency room. I suspect this is secondary to being dehydrated in the setting of diarrhea. We will give her IV fluids. I will continue her medications withhold parameters. 3. Diarrhea. The patient has stool cultures pending. I do not feel this is infectious. I suspect it is likely something she ate that did not agree with her. There is some report of melena. We will get a stool for occult blood. She denies melena at home. For now, we will continue her Xarelto. Her H and H are currently stable. We will monitor her H and H intermittently. 4. Coronary artery disease. The patient will be continued on her home metoprolol withhold parameters, not currently on a statin or aspirin. 5. Status post right total hip arthroplasty. The patient will be continued on pain medication as needed. 6. Obstructive sleep apnea. The patient does not currently use a CPAP at home , she can use 2 L of supplemental oxygen at night. 7. Hypertension. At this time, the patient is normotensive to hypotensive. I will continue her metoprolol and diltiazem withhold parameters. 8. Fluids, electrolytes, and nutrition. The patient will be on a heart- healthy diet. 9. Code status. Full code. 10. DVT prophylaxis. She is a high risk, to be continued on Xarelto. 11. Disposition. Observation. TIME SPENT: Time for this admission was approximately 60 minutes, greater than half of that was spent with the patient discussing medications, past medical history, the events leading up to her arrival today, and performing a physical examination. The case has been reviewed with the attending, Dr. Sanchez, who agrees with the plan of care. MEGHNA STEPHENSON, INTERNATIONAL NURSE [id number]/[facility] #: [id number] OPAL
[2017-11-05] MEDS: Diltiazem TAB* 30 MG PO SCH (18:07)
[2017-11-05 19:57] LABS: Hematocrit 33 % (35-47); Hemoglobin 10.9 g/dl (12.0-16.0)
[2017-11-05] MEDS: Metoprolol Succinate XL TAB* 25 MG PO SCH (22:12)
[2017-11-05] MEDS: proPAFENone TAB* 150 MG PO SCH (22:17)
[2017-11-06] MEDS: Diltiazem TAB* 30 MG PO SCH ×3 (00:27→12:02)
[2017-11-06 06:15] LABS: ABS Basophils 0 10^3/ul (0-0.2); ABS Eosinophils 0.1 10^3/ul (0-0.6); ABS Lymphocytes 1.5 10^3/ul (1.0-4.8); ABS Monocytes 0.5 10^3/ul (0-0.8); ABS Neutrophils 2.7 10^3/ul (1.5-7.7); ABS Nucleated RBC 0 10^3/ul; Eosinophil % 2.6 % (0-6); Hematocrit 33 % (35-47); Lymphocyte % 30.9 % (25-47); Mean Corpuscular HGB Conc 34 g/dl (31-36); Mean Corpuscular Hemoglobin 30 pg (27-31); Mean Corpuscular Volume 88 fL (80-97); Mean Platelet Volume 7.6 um3 (7.4-10.4); Nucleated Red Blood Cells % 0.1; Platelet Count 234 10^3/ul (150-450); Red Cell Distribution Width 15 % (10.5-15); White Blood Count 4.8 10^3/ul (3.5-10.8)
[2017-11-06 06:40] LABS: EGFR Non-African American 91.2 (>60)
[2017-11-06] MEDS: Metoprolol Succinate XL TAB* 25 MG PO SCH (08:57)
[2017-11-06] MEDS: proPAFENone TAB* 150 MG PO SCH (08:58)
[2017-11-06] MEDS ORDERED: Rivaroxaban TAB(*) 20 MG TAB PO SCH (09:00)
[2017-11-06] MEDS: NS 0.9% 1000 ML* 1,000 ML IV SCH (10:04)
[2017-11-06 14:30] VITALS: BP 131/57
--- NOTE | 2017-11-07 12:28 | DS ---
CC: Dr. Humberto Milner; Dr. Patricia Galeas * DISCHARGE SUMMARY: DATE OF ADMISSION: 11/05/17 DATE OF DISCHARGE: 11/06/17 PROVIDER: Debra Redding NP ATTENDING PHYSICIAN: Dr. Gearld Navarro * (dictated by Debra Redding NP) PRIMARY CARE PROVIDER: Dr. Humberto Milner. PRIMARY DIAGNOSES: 1. Atrial fibrillation with rapid ventricular response. 2. Hypotension. 3. Diarrhea. SECONDARY DIAGNOSES: 1. Coronary artery disease. 2. Paroxysmal atrial fibrillation. 3. Obstructive sleep apnea, not currently on CPAP. 4. Hypertension. 5. History of shingles. 6. Osteoarthritis. STUDIES COMPLETED WHILE IN THE HOSPITAL: She had a CTA of the chest and thorax. Radiologist's impression: No CT evidence of acute pulmonary embolic disease. She had an electrocardiogram on 11/05/17, which showed atrial fibrillation at a rate of 121. DISCHARGE MEDICATIONS: No new medications. Continued home medications: 1. Diltiazem 360 mg p.o. daily. 2. Xarelto 20 mg p.o. daily. 3. Restful Legs supplement 4 tablets every evening. 4. Propafenone 225 mg twice daily. 5. Metoprolol 25 mg orally twice daily. 6. [place] 5/325 two tablets every 4 hours as needed for pain. HISTORY OF PRESENT ILLNESS AND HOSPITAL COURSE: Ms. Maxwell is a 72-year- old female with a past medical history significant for coronary artery disease, paroxysmal atrial fibrillation, obstructive sleep apnea, hypertension, shingles , osteoarthritis, tuberculosis as a child, who recently underwent a right total hip placement on 10/15/17. The patient says she had uneventful recovery and was doing well and then yesterday, 11/04/17, at lunch time, she and her had lunch. Later that day, she started feeling hot and cold and developed diarrhea and nausea. She was feeling better by 8 p.m. and was able to tolerate toast. She had not checked her temperature. She did develop some central chest tightness. It was rated a 2/10. She denied any shortness of breath. She feels as though her diarrhea is improving. She denied any palpitations, urinary symptoms, but due to her symptoms of continued diarrhea, she presented to emergency room for further evaluation. While in the emergency room, she received aspirin, Zofran, and a liter of normal saline. She had a CTA of the chest, which was negative for pulmonary embolism. She had an EKG showing atrial fibrillation with RVR at a rate of 120. She had a previous EKG from 10/17/17, which her rate at that time was 88. She had lab work. Her troponins were 0.00. While in the hospital, she was monitored on telemetry. Her heart rate improved. She had atrial fibrillation at a rate of 95 on the monitor. She states that her diarrhea has resolved. She has had no further BM. She denies any black or tarry stools. She denies any dizziness. She denies any chest pain at this time. At this time, Ms. Maxwell is stable for discharge home. Vital signs are as follows: Temperature was 98.3, heart rate 95, respirations 18, O2 saturation 98 %, blood pressure 119/47. DISCHARGE PLAN: At this time, Ms. Maxwell will be discharged home. Activity as tolerated. She should continue on a heart-healthy diet. 1. Atrial fibrillation with RVR. Her rate has improved since she was placed on Cardizem CD at 90 mg q.6 hours. I will give her 2 doses of Cardizem CD to go home, a dose for 5 p.m. and dose for 11 p.m. The patient was instructed to resume her Cardizem CD tomorrow morning at her regular time. I suspect that her atrial fibrillation with RVR was related to dehydration and diarrhea. She received hydration and feels better. The diarrhea has resolved. Her potassium and magnesium were within normal limits. Magnesium was 2.0 and potassium was 4.0. 2. Hypotension. The patient only had intermittent episode of hypotension in the emergency room. Again, I suspect this is related to dehydration in the setting of diarrhea. She was given IV hydration and had repeat orthostatics completed prior to her discharge. She was not orthostatic. I have advised to resume all of her home medications. 3. Diarrhea. The patient currently has stool cultures that are pending. I suspect that her diarrhea is related to something that she ate. There was some reported melena, but the patient continues to deny any black or tarry stools. On the day of discharge, the patient states that her diarrhea has resolved. She has had no further episodes. Her H and H have been stable throughout her hospitalization. She will continue on her Xarelto at home. She is advised to watch for any bleeding, black or tarry stools at home, and to follow up with her primary care provider if this occurs. Her H and H were trended. Her H and H on the day of discharge were 11.0/33. Initially, her H and H were 12.8 and 39. I suspect that this drop in her H and H is related to dilution, as she did receive IV fluids throughout this hospitalization. She should have a repeat CBC in 1 week if she does have concerning symptoms. 4. Coronary artery disease. She will continue on her home metoprolol. 5. Status post right total hip arthroplasty. The patient should continue on pain medication as needed. Her right hip incision is healing without evidence of infection. There is no erythema or drainage from the incision site. FOLLOWUP: The patient should follow up with her primary care provider in 4 to 7 days. The patient was instructed to return to the emergency room for any chest pain or shortness of breath, nausea, vomiting, black or tarry stools, or any other concerning symptoms. This is a summarization of her hospitalization. For further details, please see the entire medical record. TIME SPENT: Time spent on this discharge was approximately 60 minutes, greater than half that time was spent with the patient discussing discharge plans and instructions. CONDITION ON DISCHARGE: Stable. DEBRA REDDING, JIMBO [id number]/[facility] #: [id number] OPAL
== END 2017-11-06 15:40 | disposition home or self-care (01) ==
LOC: ED 07:16 → MEDTELE 11:33
PROVIDERS: ADMIT Internal Medicine; ATTEND Internal Medicine
DX: I48.0 Paroxysmal atrial fibrillation (principal); I95.9 Hypotension, unspecified; R19.7 Diarrhea, unspecified; I25.10 Atherosclerotic heart disease of native coronary artery without angina pectoris; G47.33 Obstructive sleep apnea (adult) (pediatric); R06.02 Shortness of breath; I10 Essential (primary) hypertension; R07.9 Chest pain, unspecified; R11.0 Nausea; E86.0 Dehydration; K92.1 Melena; I48.91 Unspecified atrial fibrillation; Z86.19 Personal history of other infectious and parasitic diseases; M19.90 Unspecified osteoarthritis, unspecified site
CPT/HCPCS: 36415; 71275; 80048; 80053; 83735; 84484; 85014; 85018; 85025; 85027; 85610; 85730; 86850; 86900; 86901; 93005; 96374; 99284; A9270-GY; G0378; Q9967

== ENCOUNTER 2018-03-17 08:49 | Inpatient (IN) | payer BC ==
--- OUTSIDE RECORDS SUMMARY | 2018-03-17 08:53 | XMS REPORT ---
:1945 External Reference #:[id number] Author Organization [place] [email or web address] [facility] Address [address] [place] [address] [place] [address] Phone [phone] Care Team Providers Name Role Phone Humberto Milner MD Primary Care Physician Unavailable Payers Type Date Identification Numbers Payment Provider Subscriber Health Maintenance Policy Number: [facility] ([facility]) [id number] PayID: [id number] [address] [address] [place] [address] Problems Date Description Provider Status Onset: 06/27/2015 Localized, primary osteoarthritis Shantell Dyer M.D. Active of the pelvic region and thigh Onset: 07/25/2015 Zoster with other complications Shantell Dyer M.D. Active Onset: 12/07/2015 Low back pain Shantell Dyer M.D. Active Onset: 12/13/2015 Paroxysmal atrial fibrillation Patricia Galeas M.D. Active Onset: 12/13/2015 Coronary arteriosclerosis in Patricia Galeas M.D. Active [place] artery Onset: 12/13/2015 Essential hypertension Patricia Galeas [...] apnea syndrome Noemí Draper DNP, RN, Active DISH STACKER-BC Onset: 10/31/2016 Hypersomnia Noemí Draper DNP, RN, Active DISH STACKER-BC Onset: 11/26/2016 Cervical disc disorder Jeffery Blanchard M.D. Active Onset: 12/04/2016 Inflammatory and toxic neuropathy Patricia Galeas M.D. 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 Active Onset: 06/24/2017 Preoperative cardiovascular Patricia Galeas M.D. 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 Active art w unsp ang pctrs Onset: 08/09/2017 Convalescence after surgery Jeffery Blanchard M.D. 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 Allergies, Adverse Reactions, Alerts Date Description Reaction Status Severity Comments 07/17/2017 Oxycontin active 09/06/2017 Latex active 06/27/2015 NKDA inactive Medications Medication Date Status Form Strength Qnty SIG Indications Ordering Provider Oxycodone-Acetamin 11/27 Active Tablets 5-325mg 45tab 1 tabs by Shantell gallagher s mouth every Gomez, 6 hours as M.D. needed for pain Restless Leg 09/06 Active 1 daily Ashwin Blanchard Cartia XT 09/06 Active Caps ER 240mg 90cap 1 by mouth Kristen SKarla 24HR s daily in am Tucker, N.P. Xarelto 09/01 Active Tablets 20mg 1 by mouth every day Ashwin Galeas Propafenone HCL 02/28 Active Tablets 225mg 180ta 1 tab by Patricia bs mouth twice Norton, a day M.DKarla Cpap Active Device using while Unknown /0000 sleeping (not as much as she should be per patient) Metoprolol Active Tablets 25mg 1 by mouth Unknown Tar twice a day Cartia XT Active Caps ER 120mg 1 by mouth Unknown 24HR every day Oxycodone-Acetamin 11/27 Hx Solution 5-325mg/5 ML Gomez, - M.DKarla 11/27 Diltiazem CD 10/21 Hx Caps ER 120mg 1 capsule I48.1 24HR am. Gudelia, - M.D. 01/05 Xarelto 10/21 Hx Tablets 15mg 1 by mouth every day Gudelia, - M.DKarla 11/08 Oxycodone-Acetamin 10/18 Hx Tablets 5-325mg 60tab 1-2 tablets s by mouth Gomez, - every 4-6 M.D. 11/07 hours needed for pain. Toprol XL 10/15 Hx Tablets 25mg 180ta 1 by mouth ER 24HR bs twice daily Norton, - M.D. 01/05 Bactrim DS 10/04 Hx Tablets 800-160mg 6tabs take 1 by mouth twice Gomez, - a day for 3 M.D. Xarelto 09/10 Hx Tablets 20mg 90tab 1 by mouth s every day Gudelia, - M.D. 10/21 Cartia XT 09/06 Hx Caps ER 120mg 30cap Take 1 by I10 Kristen S. 24HR s mouth daily Tucker, - with the N.P. 10/20 240mg for total of 360mg Diltiazem HCL 07/09 Hx Tablets 60mg 90tab 2 tablets I48.1 s am, 1 Norton, - tablet PM M.D. 10/21 Hydrocodone-Acetam 07/08 Hx Tablets 7.5-325mg 28tab take one s tab by Lo, - mouth every M.D. 10/21 8 hours as needed for pain [place] 07/03 Hx Tablets 5-325mg 60tab Wtake 1-2 [...] 90tab 1/2 by I47.2 Patricia Succinate ER /2016 ER 24HR s mouth every Norton, - day ( M.D. 04/29 medication change 04/26/17) Metoprolol /10 Hx Tablets 25mg 90tab 1 by mouth I47.2 Patricia Succinate ER ER 24HR s every day Norton, - PM M.D. 02/15 Cartia XT 10/10 Hx Caps ER 240mg 90cap 1 by mouth 24HR s every day Norton, - M.D. 10/20 Demadex 01/03 Hx Tablets 20mg 90tab t ablet prn s swelling, Norton, - previously M.D. 08/14 1 tablet PO /2017 3 days weekly and as recommended by ( Pt has not taken ) Lasix 11/30 Hx Tablets 20mg 30tab 1 by mouth s q day x 2 Norton, - with M.D. 01/03 potassium then prn Klor-Con M10 11/30 Hx Tablets 10Meq 60tab 2 tab by ER s mouth with Gudelia, - demadex M.D. 09/05 afterrnoon ( Takes 2 tablets prn when takes Torsemide) ( pt has not taken) Medrol 10/22 Hx Tablets 4mg 21tab take as M54.12 s directed F - per dosepacasimiro Parsons, 11/05 instruction MD s Methylprednisolone 09/28 Hx TBPK 4mg 1unit [...] tab by I48.1 Patricia bs mouth twice Norton, - a day M.D. 02/15 Xarelto 06/06 Hx Tablets 15mg 30tab 1 by mouth David s every day F. - at night Mauser, 09/10 M.D. Cyclobenzaprine 03/19 Hx Tablets 10mg 40tab 1 tablet by M79.604 Shantell HCL s mouth q8 Gomez, - hours as M.D. 06/19 needed muscle spasms (Pt not taking) [place] Hx Tablets 10-325mg 1-2 by Unknown /0000 [...] mouth Patricia /0000 24HR s every day Norton, - Am M.D. 01/22 (Rivaroxaban) Hx 20mg one daily Patricia Xarelto /0000 at hs Gudelia, - M.D. 06/06 Magnesium Oxide Hx Capsules 400mg by mouth Unknown /0000 every day - 05/08 Restful Legs Hx Tablets 4 tablet Unknown / - 02/14 G 00 Hx Quick 4 tablet po Unknown Disolve morning - daily 08/14 ( 4 tablet evening if needed ) ( Pt has not taken) Ibuprofen Hx Capsules 200mg 4 tablet po Unknown / 1-2 times - daily ( Pt 09/05 does take) Potassium Chloride Hx Tablets 10Meq 1 by mouth Unknown Jane ER /0000 ER every day - 11/07 Hydrocodone-Acetam Hx Tablets 5-325mg 1 or 2 tabs Unknown inophen /0000 by mouth - every 6-8 08/12 hours needed for pain Oxycodone-Acetamin Hx Unknown ophen /0000 - 11/27 Medications Administered in Office Medication Date Status Form Strength Qnty SIG Indications Ordering Provider Inj, Administered Injection José Migueljana Flores Regadenoson, 018 Demond, 0.1 MG Ashwin, FACLeslie, FASNC Technetium TC Administered Injection José Miguel Flores 99M 018 Carleen Lagos M.D., PATITO, Per [...] Dyer Vital Signs Date Vital Result Comment 02/17/2018 Height 64 inches 5'4" Heart Rate 84 /min BP Systolic 116 mmHg BP Diastolic 70 mmHg Body Temperature 97.4 F Pain Level 3 01/09/2018 Height 64 inches 5'4" Weight 196.00 lb with shoes Heart Rate 56 /min BP Systolic 160 mmHg Lue reg cuff BP Diastolic 94 mmHg Lue reg cuff BP Systolic Sitting 160 mmHg Lue reg cuff BP Diastolic Sitting 90 mmHg Lue reg cuff Respiratory Rate 18 /min BMI (Body Mass Index) 33.6 kg/m2 Ejection Fraction 55-60% date 05/17/17 ECHO 01/06/2018 Heart Rate 60 /min BP Systolic 126 mmHg BP Diastolic 72 mmHg Body Temperature 97.0 F Pain Level 0 11/25/2017 Height 64 inches 5'4" Weight 174.00 lb Heart Rate 68 /min BP Systolic 128 mmHg BP Diastolic 84 mmHg Pain Level 6 BMI (Body Mass Index) 29.9 kg/m2 11/08/2017 Height 64 inches 5'4" Weight 177.00 lb w/ shoes Heart Rate 90 /min BP Systolic Sitting 112 mmHg lue lg cuff BP Diastolic Sitting 68 mmHg lue lg cuff BP Systolic Standing 112 mmHg lue lg cuff BP Diastolic Standing 68 mmHg lue lg cuff Respiratory Rate 18 /min BMI (Body Mass Index) 30.4 kg/m2 Ejection Fraction 55-60% echo 05/17/17 10/25/2017 Height 64 inches 5'4" Weight 175.00 [...] 1 Urine Appearance Clear 1 Urine Specific [place] 1.020 1.010-1.030 1 Urine pH 5.0 5-9 [...] [address]: Shantell Dyer MD Acct: [id number] Unit: [id number] AGE: 72 Location: [facility] Re10/02/17 SEX: F Status: REG REF SPEC: [id number] JUWAN: 10/02/17-1340 [facility] DR: Shantell Dyer MD REQ: [id number] RECD: 10/02/17 STATUS: COMP _ SOURCE: URINE SPDESC: ORDERED: Urine Culture COMMENTS: SHANA 10/15 QUERIES: Urine Source: Clean Catch Procedure Result Reported Site Urine Culture Final 10/04/17- 0749 ML Organism 1 ESCHERICHIA COLI Paragon Count >100,000 (Many) CFU/ML 1. ESCHERICHIA COLI [...] . END OF REPORT DEPARTMENT OF PATHOLOGY, [address] [place] [address] Nathaniel De León M.D. Director [facility] # [id number] 5 Because ethnic data is not always [...] <15 (or dialysis) 10 Test Performed by: [facility] - [address] [address] 11 REFERENCE VALUE <=1.0 (Negative) 12 REFERENCE VALUE <20.0 (Negative) 13 Tests for antibodies to dsDNA and BILL antigens are not performed automatically unless the KRYSTEN result is > or= 3.0 U. Studies performed at [facility] indicate that positive KRYSTEN results <3.0 U are rarely accompanied by positive second order tests. Test Performed by: [address] [address] Procedures Date CPT Code Description Status 01/09/2018 78574 EKG Tracing & Interpretation Completed 12/20/2017 21208 Implantable Cardio System Loop Recorder Sys Remota Data Completed Acquistio 12/20/2017 50093 Interrogation Dev Loop Recorder Incl Physician Completed Analysis,Rev,Repor 11/27/2017 73159 Cardioversion Completed 11/19/2017 17901 Implantable Cardio System Loop Recorder Sys Remota Data Completed Acquistio 11/19/2017 72803 Interrogation Dev Loop Recorder Incl Physician Completed Analysis,Rev,Repor 11/08/2017 93801 EKG Tracing & Interpretation Completed 10/19/2017 54469 Implantable Cardio System Loop Recorder Sys Remota Data Completed Acquistio 10/19/2017 15442 Interrogation Dev Loop Recorder Incl Physician Completed Analysis,Rev,Repor 10/17/2017 28653 EKG, Interpretation Only Completed 10/15/2017 14899 THR Total Hip Replacement Completed 10/15/2017 28449 THR Total Hip Replacement Completed 09/18/2017 93071 Interrogation Dev Loop Recorder Incl Physician Completed Analysis,Rev,Repor 09/18/2017 38388 Implantable Cardio System Loop Recorder Sys Remota Data Completed Acquistio 09/06/2017 26834 EKG Tracing & Interpretation Completed 08/22/2017 14325 EKG Tracing & Interpretation Completed 08/22/2017 00247 EKG Tracing & Interpretation Completed 08/18/2017 50561 Implantable Cardio System Loop Recorder Sys Remota Data Completed Acquistio 08/18/2017 16619 Interrogation Dev Loop Recorder Incl Physician Completed Analysis,Rev,Repor 08/15/2017 05863 Moderate Sedation Services; Same Phys Intl 15 Mins; PT Completed >=5 Years 08/15/2017 21849 EKG, Interpretation Only Completed 08/15/2017 41126 Cardioversion Completed 07/30/2017 18491 EKG Tracing & Interpretation Completed 07/18/2017 76426 Interrogation Dev Loop Recorder Incl Physician Completed Analysis,Rev,Repor 07/18/2017 00973 Implantable Cardio System Loop Recorder Sys Remota Data Completed Acquistio 07/09/2017 37165 EKG Tracing & Interpretation Completed 07/02/2017 78716 Anterior Instrumentation 2-3 Vertebral Segments Completed 07/02/2017 75419 Anterior Instrumentation 2-3 Vertebral Segments Completed 07/02/2017 62601 arthrodesis,anterior interbody incl disc space Completed prep,discectomy,de 07/02/2017 07046 arthrodesis,anterior interbody incl disc space Completed prep,discectomy,de 07/02/2017 09225 Allograft For Spine Surgery,Structural (Bone Bank) Completed 06/25/2017 16655 Pulmonary Function><Bronchodil Completed 06/24/2017 69914 EKG Tracing & Interpretation Completed 06/17/2017 82301 Implantable Cardio System Loop Recorder Sys Remota Data Completed Acquistio 06/17/2017 05921 Interrogation Dev Loop Recorder Incl Physician Completed Analysis,Rev,Repor 05/28/2017 27117 Myocardial Perfusion Imaging Tomographic (Spect) Completed Multiple Studies 05/28/2017 58536 Stress Test Completed 05/17/2017 20648 ECHO Transthoracic, Real-Time 2D With Doppler And Color Completed Flow 05/17/2017 46590 ECHO Transthoracic, Real-Time 2D With Doppler And Color Completed Flow 05/17/2017 62743 Implantable Cardio System Loop Recorder Sys Remota Data Completed Acquistio 05/17/2017 09697 Interrogation Dev Loop Recorder Incl Physician Completed Analysis,Rev,Repor 04/29/2017 94811 EKG Tracing & Interpretation Completed 04/16/2017 64004 Implantable Cardio System Loop Recorder Sys Remota Data Completed Acquistio 04/16/2017 97343 Interrogation Dev Loop Recorder Incl Physician Completed Analysis,Rev,Repor 04/11/2017 05414 Moderate Sedation Services; Same Phys Intl 15 Mins; PT Completed >=5 Years 04/11/2017 34378 EKG, Interpretation Only Completed 04/11/2017 60972 Cardioversion Completed 03/28/2017 07865 EKG Tracing & Interpretation Completed 03/16/2017 34041 Implantable Cardio System Loop Recorder Sys Remota Data Completed Acquistio 03/16/2017 84610 Interrogation Dev Loop Recorder Incl Physician Completed Analysis,Rev,Repor 03/08/2017 91585 EKG Tracing & Interpretation Completed 03/08/2017 19376 EKG Tracing & Interpretation Completed 03/08/2017 30399 EKG Tracing & Interpretation Completed 03/08/2017 07793 EKG Tracing & Interpretation Completed 02/28/2017 73074 EKG Tracing & Interpretation Completed 02/28/2017 12760 EKG Tracing & Interpretation Completed 02/19/2017 12174 EKG Tracing & Interpretation Completed 02/19/2017 63942 EKG Tracing & Interpretation Completed 02/15/2017 41416 EKG Tracing & Interpretation Completed 02/13/2017 75241 Interrogation Dev Loop Recorder Incl Physician Completed Analysis,Rev,Repor 02/13/2017 42206 Implantable Cardio System Loop Recorder Sys Remota Data Completed Acquistio 01/22/2017 92503 EKG Tracing & Interpretation Completed 01/13/2017 72095 Implantable Cardio System Loop Recorder Sys Remota Data Completed Acquistio 01/13/2017 63538 Interrogation Dev Loop Recorder Incl Physician Completed Analysis,Rev,Repor 12/13/2016 91638 Implantable Cardio System Loop Recorder Sys Remota Data Completed Acquistio 12/13/2016 43883 Interrogation Dev Loop Recorder Incl Physician Completed Analysis,Rev,Repor 11/12/2016 11778 Implantable Cardio System Loop Recorder Sys Remota Data Completed Acquistio 11/12/2016 95415 Interrogation Dev Loop Recorder Incl Physician Completed Analysis,Rev,Repor 10/11/2016 32984 Implant Cardiac Loop Recorder Completed 10/02/2016 88928 Sleep Study Unattended,HRT Rate,Oxygen Sat,Resp Completed Effort/Airflow 08/31/2016 34303 EKG Tracing & Interpretation Completed 08/06/2016 29426 Inject/Drain Joint/Bursa Major W/O US Completed 08/03/2016 75748 EKG Tracing & Interpretation Completed 06/29/2016 80740 EKG, Interpretation Only Completed 06/29/2016 20995 Cardioversion Completed 06/28/2016 68117 Inject/Drain Joint/Bursa Major W/O US Completed 06/18/2016 73885 Inject/Drain Joint/Bursa Major W/O US Completed 06/07/2016 33094 EKG Tracing & Interpretation Completed 05/22/2016 08354 Stress Test Completed 05/22/2016 98368 Myocardial Perfusion Imaging Tomographic (Spect) Completed Multiple Studies 03/25/2016 15636 Holter Monitor Review (24 hr)dr review & interp only Completed 03/21/2016 33231 ECG Monitor/Recording W/Visual Superimposition Scanning Completed 03/16/2016 11722 EKG Tracing & Interpretation Completed 03/02/2016 37050 Inject/Drain Joint/Bursa Major W/O US Completed 02/20/201620681 Injection Single Tendon Origin/Insertion Completed 02/10/2016 Injection Single Tendon Origin/Insertion Completed 12/13/2015 75195 EKG Tracing & Interpretation Completed 11/30/2015 50059 Color Flow Doppler/Interp & Reprt Completed 11/30/2015 39897 Pulse Wave/Continuous-Interp.RPT Completed 11/30/2015 24280 Echocardiography, Transesophageal, Real Time W/Image 2D Completed W/W/O M-M 11/30/2015 06458 EKG, Interpretation Only Completed 11/30/2015 37503 Cardioversion Completed 06/27/2015 97068 Inject/Drain Joint/Bursa Major W/O US Completed 07/20/2014 70732 ECHO Transthorasic Realtime 2D W Doppler & Color Flow Completed Hosp 07/19/2014 48849 EKG, Interpretation Only Completed Encounters Type Date Location Provider CPT E/M Dx Office Visit 01/09/2018 1:10p [facility] Patricia Galeas M.D. 12124 I48.0 Acid Tank Cleaner I10 R42 R60.0 Office Visit 11/08/2017 11:00a [facility] Patricia Galeas M.D. 89615 I48.0 Acid Tank Cleaner AT [facility] R06.02 Office Visit 11/06/2017 12:07p [facility] Debra Redding, 88393 I48.91 Assoc, Hospitalists GLUE MOUNTER OPERATOR I95.9 R19.7 Office Visit 11/05/2017 [facility] Emi Rod, 69770 I48.91 12:07p Assoc, GLUE MOUNTER OPERATOR Hospitalists R07.9 I95.9 R19.7 Office Visit 10/17/2017 2:38p [facility] Assoc, CHERELLE Moss 89891 I48.91 Hospitalists M25.551 Z96.641 Office Visit 10/16/2017 2:38p [facility] Assoc, CHERELLE Moss 94186 I48.91 Hospitalists M25.551 Z96.641 Office Visit 10/15/2017 4:34p [facility] Assoc, Jad Yu, 97264 I48.91 Hospitalists Ashwin I25.10 I10 Z96.641 Office Visit 09/06/2017 3:30p [facility] Kristen Ceballos, 48811 I48.1 Acid Tank Cleaner N.P. Z95.818 I25.119 I10 Z01.810 M87.051 M70.61 Office Visit 09/06/2017 1:45p [facility] Shantell Dyer M.D. 22118 M16.11 C.M.A. M87.051 M70.61 M25.551 Office Visit 08/22/2017 2:00p [facility] Kristen Ceballos, 74168 Z95.818 [facility] N.P. I48.91 I10 Office Visit 07/30/2017 9:30a [facility] Kristen Ceballos, 84604UPG I10 [facility] N.P. I48.1 Office Visit 07/09/2017 11:30a [facility] Patricia Galeas M.D. 38691 I48.1 Acid Tank Cleaner Office Visit 07/03/2017 10:13a [facility] Assoc,pc [facility], 76649 I48.91 Hospitalists GLUE MOUNTER OPERATOR M54.12 I10 Office Visit 07/02/2017 [facility] [place], [address]21 I48.91 Assoc,pc Hospitalists N.P. M54.12 I10 Office Visit 06/24/2017 1:50p [facility] Patricia Galeas M.D. 39416 Z01.810 [facility] I48.0 I25.119 R06.02 M50.821 Office Visit 06/19/2017 2:30p [facility] Jeffery Blanchard, 23466 M47.812 Of Charlee Christopher Office Visit 04/29/2017 12:15p [facility] Patricia Galeas M.D. 65736 I48.0 [facility] R06.02 G47.33 I25.119 Office Visit 03/28/2017 2:30p [facility] Kandice Galeas M.D. 41337 I48.1 Charlee R06.02 Z95.818 Office Visit 02/19/2017 1:30p [facility] CHERELLE Quintana 18624 I48.0 R06.02 Z95.818 Office Visit 02/15/2017 2:45p [facility] Kandice Galeas M.D. 76761 I48.0 Charlee G47.33 I25.10 R06.02 Office Visit 02/12/2017 1:00p [facility] Noemí Draper, 03229 G47.33 Services Of [facility] SAYRA, RN, DISH STACKER-BC G47.14 F40.240 Office Visit 01/28/2017 3:20p [facility] Jeffery Blanchard, 81151 M47.812 Of [facility] M.D. Office Visit 01/22/2017 8:45a [facility] Gonzalez AdamaKarla Valderrama, 92557 I47.2 [facility] DO [facility] I25.2 I25.10 I48.0 Office Visit 12/12/2016 1:15p [facility] Noemí Draper, 41342 G47.33 Services Of [facility] JORDY COLBERT, [facility] Office Visit 12/04/2016 2:30p [facility] Patricia Galeas M.D. 76839 H81.10 [facility] G62.9 R60.0 I48.0 R42 Office Visit 11/26/2016 1:30p [facility] Jeffery Blanchard 65053 M50.821 Of [facility] M.D. Office Visit 11/05/2016 1:00p Neurosurgery Services Kimi Hurt PA-C 58019 M54.12 Of [facility] Office Visit 10/31/2016 1:15p [facility] Sleep Noemí Draper, 38507 G47.33 Services Of [facility] JORDY COLBERT, [facility] G47.10 F40.240 Office Visit 10/22/2016 2:00p [facility] Jah Parsons, 37715 M47.22 Familia ROBERTSON M75.52 Office Visit 10/12/2016 2:15p [facility] Shantlel Dyer M.D. 42418 M25.512 Leslie.Edgar M75.42 S46.012A Office Visit 09/28/2016 2:30p [facility] Shantell Dyer M.D. 66775 M25.512 Leslie.Edgar M75.42 S46.012A Office Visit 09/24/2016 2:45p [facility] [place]ía [place] [address] R06.83 Services Of [facility] G47.10 R51 R45.1 R55 Office Visit 08/31/2016 1:00p [facility] Patricia Galeas M.D. 10572 R55 I48.0 R32 Office Visit 08/24/2016 1:45p [facility] Shantell Dyer M.D. 90028 M25.512 C.M.A. M75.42 S46.012A Office Visit 08/06/2016 3:00p [facility] Shantell Dyer M.D. 50839 M25.512 C.M.A. M75.42 S46.012A W19.xxxA M87.051 M87.052 M25.551 M25.552 Office Visit 08/03/2016 2:30p [facility] CHERELLE Orona 91765 I48.0 M25.511 M25.551 M25.512 Office Visit 07/06/2016 2:30p [facility] Shantell Dyer M.D. 32632 M25.551 C.M.A. M70.61 Office Visit 06/28/2016 2:00p [facility] Nadja Carreon, 17743 M25.511 Of CEthan VILLARREAL S46.011A Office Visit 06/18/2016 1:15p [facility] Shantell Dyer M.D. 97434 M25.552 C.M.A. M25.551 M70.61 M70.62 M25.511 M25.512 M75.41 M75.42 Office Visit 06/07/2016 3:15p [facility] Patricia Galeas M.D. 75613 I48.1 [facility] R06.02 G47.9 I25.10 Office Visit 05/08/2016 1:30p [facility] Patricia Galeas M.D. 29412 R09.02 [facility] I48.1 Z68.31 I25.10 Office Visit 03/19/2016 2:15p [facility] Shantell Dyer M.D. 89233 M79.604 C.M.A. M79.605 Office Visit 03/16/2016 2:00p [facility] CHERELLE Orona 57279 I48.91 R09.02 Office Visit 03/02/2016 2:00p [facility] Shantell Dyer M.D. 26345 M65.221 C.M.A. M25.512 M25.511 M75.41 M75.42 Office Visit 02/10/2016 11:15a [facility] Shantell Dyer M.D. 24537 M25.551 C.M.A. M25.552 M16.11 M70.61 M70.62 Office Visit 12/13/2015 4:00p [facility] Patricia Galeas M.D. 95007 I48.0 [facility] I25.10 I10 E78.2 R06.01 G47.9 Office Visit 12/07/2015 8:00a [facility] Shantell Dyer M.D. 38512 M54.5 C.M.A. Office Visit 11/30/2015 7:54a [facility], Jad Yu, 46049 I48.91 Hospitalists Ashwin I25.10 E87.6 I10 Office Visit 11/30/2015 3:52p [facility] Patricia Galeas M.D. 42501 I48.0 Acid Tank Cleaner Office Visit 11/29/2015 7:54a [facility], Jad Yu, 54694 I48.91 Hospitalists Ashwin I25.10 E87.6 I10 Office Visit 07/25/2015 9:45a [facility] Shantell Dyer M.D. 67177 M16.11 C.M.A. M70.61 M25.551 B02.8 Office Visit 07/04/2015 12:45p [facility] Shantell Dyer M.D. 07974 M16.11 C.M.A. M70.61 M25.551 Office Visit 06/27/2015 10:00a [facility] Shantell Dyer M.D. 05824 M16.11 C.M.A. M70.61 M25.551 Office Visit 07/20/2014 8:57a [facility], Kristen Ceballos, 06378 558.9 Hospitalists N.P. 427.31 414.00 276.8 Office Visit 07/19/2014 8:57a [facility], Kristen Ceballos, 72510 558.9 Hospitalists N.P. 427.31 414.00 276.8 Plan of Care Future Appointment(s):02/18/2019 9:00 am - Shantell Dyer M.D. at [facility] M.A.03/04/2018 10:30 am - Kristen Ceballos N.P. at [facility]02/17/2018 - Shantell Dyer M.D.Z96.641 Presence of right artificial hip jointFollow up:Follow up: 1 yearM54.30 Sciatica, unspecified side
--- OUTSIDE RECORDS SUMMARY | 2018-03-17 08:53 | XMS REPORT ---
:1945 External Reference #:[id number] Author Organization [email or web address] Address [address] [place] [address] [place] [address] Phone [phone] Care Team Providers Name Role Phone Humberto Milner MD Primary Care Physician Unavailable Payers Type Date Identification Numbers Payment Provider Subscriber Health Maintenance Policy Number: [facility] ([facility]) [id number] PayID: [id number] [address] [address] [place] [address] Problems Date Description Provider Status Onset: 06/27/2015 Localized, primary osteoarthritis Shantell Dyer M.D. Active of the pelvic region and thigh Onset: 07/25/2015 Zoster with other complications Shantell Dyer M.D. Active Onset: 12/07/2015 Low back pain Shantell Dyer M.D. Active Onset: 12/13/2015 Paroxysmal atrial fibrillation Patricia Galeas M.D. Active Onset: 12/13/2015 Coronary arteriosclerosis in Patricia Galeas M.D. Active pilot station artery Onset: 12/13/2015 Essential hypertension Patricia Galeas M.D. Active Onset: 12/13/2015 Mixed hyperlipidemia Patricia Galeas M.D. Active Onset: 02/10/2016 Trochanteric bursitis Shantell Dyer M.D. Active Onset: 03/02/2016 Calcium deposits in tendon Shantell yDer M.D. 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 Active Onset: 12/04/2016 Inflammatory and toxic neuropathy Patricia Galeas M.D. 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 Active Onset: 06/24/2017 Preoperative cardiovascular Patricia Galeas M.D. 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 Allergies, Adverse [...] 1 tab by Patricia bs mouth twice [place], a day M.DKarla Cpap Active Device using [...] by mouth ER 24HR bs twice daily [place], - M.D. 01/05 Bactrim DS 10/04 Hx [...] 90tab 2 tablets I48.1 s am, 1 [place], - tablet PM M.D. 10/21 Hydrocodone-Acetam 07/08 Hx Tablets 7.5-325mg 28tab take one s tab by Lo, - mouth every M.D. 10/21 8 hours as needed for pain Reading 07/03 Hx Tablets 5-325mg 60tab Wtake 1-2 [...] ER /2016 ER 24HR s mouth every [place], - day ( M.D. 04/29 medication change 04/26/17) Metoprolol /10 Hx Tablets 25mg 90tab 1 by mouth I47.2 Patricia Succinate ER ER 24HR s every day [place], - PM M.D. 02/15 Cartia XT 10/10 Hx Caps ER 240mg 90cap 1 by mouth 24HR s every day [place], - M.D. 10/20 Demadex 01/03 Hx Tablets 20mg 90tab t ablet prn s swelling, [place], - previously M.D. 08/14 1 tablet PO /2017 3 days weekly and as recommended by ( Pt has not taken ) Lasix 11/30 Hx Tablets 20mg 30tab 1 by mouth s q day x 2 [place], - with M.D. 01/03 potassium then prn [...] tab by I48.1 Patricia bs mouth twice [place], - a day M.D. 02/15 Xarelto 06/06 Hx Tablets 15mg 30tab 1 by mouth David s every day F. - at night Mauser, 09/10 M.D. Cyclobenzaprine 03/19 Hx Tablets 10mg 40tab 1 tablet by M79.604 Shantell HCL s mouth q8 Gomez, - hours as M.D. 06/19 needed muscle spasms (Pt not taking) Reading Hx Tablets 10-325mg 1-2 by Unknown /0000 [...] mouth Patricia /0000 24HR s every day [place], - Am M.D. 01/22 (Rivaroxaban) Hx 20mg [...] 1 Urine Appearance Clear 1 Urine Specific [place] 1.020 1.010-1.030 1 Urine pH 5.0 5-9 [...] [address]: Shantell Dyer MD Acct: [id number] Unit: [id number] AGE: 72 Location: [facility] Re10/02/17 SEX: F Status: REG REF SPEC: [id number] JUWAN: 10/02/17-[address] [facility] DR: Shantell Dyer MD REQ: [id number] RECD: 10/02/17 STATUS: COMP _ SOURCE: URINE SPDESC: ORDERED: Urine Culture COMMENTS: SHANA 10/15 QUERIES: Urine Source: Clean Catch Procedure Result Reported Site Urine Culture Final 10/04/17- 0749 ML Organism 1 ESCHERICHIA COLI [place] Count >100,000 (Many) CFU/ML 1. ESCHERICHIA COLI [...] . END OF REPORT DEPARTMENT OF PATHOLOGY, [address] [place] [address] Nathaniel De León M.D. Director [facility] # [id number] 5 Because ethnic data is not always [...] <15 (or dialysis) 10 Test Performed by: [facility] - [address] [address] 11 REFERENCE VALUE <=1.0 (Negative) 12 REFERENCE VALUE <20.0 (Negative) 13 Tests for antibodies to dsDNA and BILL antigens are not performed automatically unless the KRYSTEN result is > or= 3.0 U. Studies performed at [facility] indicate that positive KRYSTEN results <3.0 U are rarely accompanied by positive second order tests. Test Performed by: [address] [address] Procedures Date CPT Code Description Status 01/09/2018 45107 EKG Tracing & Interpretation Completed 12/20/2017 58919 Implantable Cardio System Loop Recorder Sys Remota Data Completed Acquistio 12/20/2017 88043 Interrogation Dev Loop Recorder Incl Physician Completed Analysis,Rev,Repor 11/27/2017 90403 Cardioversion Completed 11/19/2017 83332 Implantable Cardio System Loop Recorder Sys Remota Data Completed Acquistio 11/19/2017 70542 Interrogation Dev Loop Recorder Incl Physician Completed Analysis,Rev,Repor 11/08/2017 25042 EKG Tracing & Interpretation Completed 10/19/2017 25520 Implantable Cardio System Loop Recorder Sys Remota Data Completed Acquistio 10/19/2017 57728 Interrogation Dev Loop Recorder Incl Physician Completed Analysis,Rev,Repor 10/17/2017 15664 EKG, Interpretation Only Completed 10/15/2017 04666 THR Total Hip Replacement Completed 10/15/2017 18598 THR Total Hip Replacement Completed 09/18/2017 21069 Interrogation Dev Loop Recorder Incl Physician Completed Analysis,Rev,Repor 09/18/2017 29720 Implantable Cardio System Loop Recorder Sys Remota Data Completed Acquistio 09/06/2017 57556 EKG Tracing & Interpretation Completed 08/22/2017 93315 EKG Tracing & Interpretation Completed 08/22/2017 08917 EKG Tracing & Interpretation Completed 08/18/2017 19930 Implantable Cardio System Loop Recorder Sys Remota Data Completed Acquistio 08/18/2017 10216 Interrogation Dev Loop Recorder Incl Physician Completed Analysis,Rev,Repor 08/15/2017 92056 Moderate Sedation Services; Same Phys Intl 15 Mins; PT Completed >=5 Years 08/15/2017 28140 EKG, Interpretation Only Completed 08/15/2017 73732 Cardioversion Completed 07/30/2017 54757 EKG Tracing & Interpretation Completed 07/18/2017 43477 Interrogation Dev Loop Recorder Incl Physician Completed Analysis,Rev,Repor 07/18/2017 99097 Implantable Cardio System Loop Recorder Sys Remota Data Completed Acquistio 07/09/2017 26773 EKG Tracing & Interpretation Completed 07/02/2017 65056 Anterior Instrumentation 2-3 Vertebral Segments Completed 07/02/2017 26836 Anterior Instrumentation 2-3 Vertebral Segments Completed 07/02/2017 56747 arthrodesis,anterior interbody incl disc space Completed prep,discectomy,de 07/02/2017 80151 arthrodesis,anterior interbody incl disc space Completed prep,discectomy,de 07/02/2017 45645 Allograft For Spine Surgery,Structural (Bone Bank) Completed 06/25/2017 66344 Pulmonary Function><Bronchodil Completed 06/24/2017 54377 EKG Tracing & Interpretation Completed 06/17/2017 72440 Implantable Cardio System Loop Recorder Sys Remota Data Completed Acquistio 06/17/2017 38027 Interrogation Dev Loop Recorder Incl Physician Completed Analysis,Rev,Repor 05/28/2017 45491 Myocardial Perfusion Imaging Tomographic (Spect) Completed Multiple Studies 05/28/2017 60608 Stress Test Completed 05/17/2017 44854 ECHO Transthoracic, Real-Time 2D With Doppler And Color Completed Flow 05/17/2017 60732 ECHO Transthoracic, Real-Time 2D With Doppler And Color Completed Flow 05/17/2017 73345 Implantable Cardio System Loop Recorder Sys Remota Data Completed Acquistio 05/17/2017 86467 Interrogation Dev Loop Recorder Incl Physician Completed Analysis,Rev,Repor 04/29/2017 48913 EKG Tracing & Interpretation Completed 04/16/2017 06578 Implantable Cardio System Loop Recorder Sys Remota Data Completed Acquistio 04/16/2017 85376 Interrogation Dev Loop Recorder Incl Physician Completed Analysis,Rev,Repor 04/11/2017 84301 Moderate Sedation Services; Same Phys Intl 15 Mins; PT Completed >=5 Years 04/11/2017 85832 EKG, Interpretation Only Completed 04/11/2017 63692 Cardioversion Completed 03/28/2017 25878 EKG Tracing & Interpretation Completed 03/16/2017 02768 Implantable Cardio System Loop Recorder Sys Remota Data Completed Acquistio 03/16/2017 26690 Interrogation Dev Loop Recorder Incl Physician Completed Analysis,Rev,Repor 03/08/2017 15658 EKG Tracing & Interpretation Completed 03/08/2017 40044 EKG Tracing & Interpretation Completed 03/08/2017 31935 EKG Tracing & Interpretation Completed 03/08/2017 39198 EKG Tracing & Interpretation Completed 02/28/2017 40369 EKG Tracing & Interpretation Completed 02/28/2017 89111 EKG Tracing & Interpretation Completed 02/19/2017 47465 EKG Tracing & Interpretation Completed 02/19/2017 40424 EKG Tracing & Interpretation Completed 02/15/2017 73153 EKG Tracing & Interpretation Completed 02/13/2017 54241 Interrogation Dev Loop Recorder Incl Physician Completed Analysis,Rev,Repor 02/13/2017 97014 Implantable Cardio System Loop Recorder Sys Remota Data Completed Acquistio 01/22/2017 57820 EKG Tracing & Interpretation Completed 01/13/2017 41442 Implantable Cardio System Loop Recorder Sys Remota Data Completed Acquistio 01/13/2017 03725 Interrogation Dev Loop Recorder Incl Physician Completed Analysis,Rev,Repor 12/13/2016 63446 Implantable Cardio System Loop Recorder Sys Remota Data Completed Acquistio 12/13/2016 91312 Interrogation Dev Loop Recorder Incl Physician Completed Analysis,Rev,Repor 11/12/2016 47430 Implantable Cardio System Loop Recorder Sys Remota Data Completed Acquistio 11/12/2016 98855 Interrogation Dev Loop Recorder Incl Physician Completed Analysis,Rev,Repor 10/11/2016 96758 Implant Cardiac Loop Recorder Completed 10/02/2016 63856 Sleep Study Unattended,HRT Rate,Oxygen Sat,Resp Completed Effort/Airflow 08/31/2016 00867 EKG Tracing & Interpretation Completed 08/06/2016 15348 Inject/Drain Joint/Bursa Major W/O US Completed 08/03/2016 69834 EKG Tracing & Interpretation Completed 06/29/2016 03594 EKG, Interpretation Only Completed 06/29/2016 23180 Cardioversion Completed 06/28/2016 75494 Inject/Drain Joint/Bursa Major W/O US Completed 06/18/2016 47663 Inject/Drain Joint/Bursa Major W/O US Completed 06/07/2016 20110 EKG Tracing & Interpretation Completed 05/22/2016 59202 Stress Test Completed 05/22/2016 91640 Myocardial Perfusion Imaging Tomographic (Spect) Completed Multiple Studies 03/25/2016 14091 Holter Monitor Review (24 hr)dr review & interp only Completed 03/21/2016 24677 ECG Monitor/Recording W/Visual Superimposition Scanning Completed 03/16/2016 55669 EKG Tracing & Interpretation Completed 03/02/2016 35414 Inject/Drain Joint/Bursa Major W/O US Completed 02/20/201663461 Injection Single Tendon Origin/Insertion Completed 02/10/2016 Injection Single Tendon Origin/Insertion Completed 12/13/2015 03088 EKG Tracing & Interpretation Completed 11/30/2015 43892 Color Flow Doppler/Interp & Reprt Completed 11/30/2015 90718 Pulse Wave/Continuous-Interp.RPT Completed 11/30/2015 05728 Echocardiography, Transesophageal, Real Time W/Image 2D Completed W/W/O M-M 11/30/2015 75375 EKG, Interpretation Only Completed 11/30/2015 53431 Cardioversion Completed 06/27/2015 65429 Inject/Drain Joint/Bursa Major W/O US Completed 07/20/2014 34725 ECHO Transthorasic Realtime 2D W Doppler & Color Flow Completed Hosp 07/19/2014 92149 EKG, Interpretation Only Completed Encounters Type Date Location Provider CPT E/M Dx Office Visit 02/17/2018 [facility] Shantell Dyer M.D. 83843 Z96.641 9:45a Of Familia M54.30 Office Visit 01/09/2018 1:10p [facility] Of Patricia Galeas M.D. 67701 I48.0 [facility] I10 R42 R60.0 Office Visit 11/08/2017 11:00a [facility] Of Patricia Galeas M.D. 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 [facility] R06.02 Office Visit 11/06/2017 12:07p [facility] Debra Redding, 93076 I48.91 Assoc, Hospitalists [employer] I95.9 R19.7 Office Visit 11/05/2017 [facility] Emi Rod, 72155 I48.91 12:07p Assoc, [employer] Hospitalists R07.9 I95.9 R19.7 Office Visit 10/17/2017 2:38p [facility] Assoc,CHERELLE Jensen 97491 I48.91 Hospitalists M25.551 Z96.641 Office Visit 10/16/2017 2:38p [facility] CHERELLE Moss 31666 I48.91 Hospitalists M25.551 Z96.641 Office Visit 10/15/2017 4:34p [facility]oc, Jad Yu 97672 I48.91 Hospitalists sAhwin I25.10 I10 Z96.641 Office Visit 09/06/2017 3:30p [facility] Of Kristen Ceballos, 20622 I48.1 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 Z95.818 I25.119 I10 Z01.810 M87.051 M70.61 Office Visit 09/06/2017 1:45p [facility] Shantell Dyer M.D. 35108 M16.11 C.M.AKarla M87.051 M70.61 M25.551 Office Visit 08/22/2017 2:00p [facility] Of Kristen Ceballos, 86946 Z95.818 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 I48.91 I10 Office Visit 07/30/2017 9:30a [facility] Of Kristen Ceballos, 25739CNZ I10 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 I48.1 Office Visit 07/09/2017 11:30a [facility] Of Patricia Galeas M.D. 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 [address] I48.91 Hospitalists [employer] M54.12 I10 Office Visit 07/02/2017 [facility] [place] [address] I48.91 Assoc, Hospitalists N.P. M54.12 I10 Office Visit 06/24/2017 1:50p [facility] Of Patricia Galeas M.D. 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 46181 I48.0 [facility] R06.02 G47.33 I25.119 Office Visit 03/28/2017 2:30p [facility] Of Patricia Galeas M.D. 29490 I48.1 Charlee R06.02 Z95.818 Office Visit 02/19/2017 1:30p [facility] Of CHERELLE Quintana 42991 I48.0 R06.02 Z95.818 Office Visit 02/15/2017 2:45p [facility] Of Patricia Galeas M.D. 78114 I48.0 [facility] G47.33 I25.10 R06.02 Office Visit 02/12/2017 1:00p [facility] Noemí Draper, 24481 G47.33 Services Of [facility] JORDY COLBERT, [facility] G47.14 F40.240 Office Visit 01/28/2017 3:20p [facility] Jeffery Blanchard, 59411 M47.812 Of [facility] M.D. Office Visit 01/22/2017 8:45a [facility] Of Gonzalez Valderrama, 18494 I47.2 [facility] DO [facility] I25.2 I25.10 I48.0 Office Visit 12/12/2016 1:15p [facility] Noemí Draper, 43344 G47.33 Services Of [facility] JORDY COLBERT, [facility] Office Visit 12/04/2016 2:30p [facility] Of Patricia Galeas M.D. 09372 H81.10 [facility] G62.9 R60.0 I48.0 R42 Office Visit 11/26/2016 1:30p [facility] Jeffery Blanchard 69947 M50.821 Of [facility] M.D. Office Visit 11/05/2016 1:00p Neurosurgery Services Kimi Hurt PA-C 77112 M54.12 Of [facility] Office Visit 10/31/2016 1:15p [facility] Noemí Draper, 62283 G47.33 Services Of [facility] JORDY COLBERT, [facility] G47.10 F40.240 Office Visit 10/22/2016 2:00p [facility] Of Jah Parsons, 07096 M47.22 Familia ROBERTSON M75.52 Office Visit 10/12/2016 2:15p [facility] Of Shantell Dyer M.D. 10956 M25.512 C.M.A. M75.42 S46.012A Office Visit 09/28/2016 2:30p [facility] Of Shantell Dyer M.D. 04745 M25.512 C.MKarlaAKarla M75.42 S46.012A Office Visit 09/24/2016 2:45p [facility] [place]ía [place] [address] R06.83 Services Of [facility] G47.10 R51 R45.1 R55 Office Visit 08/31/2016 1:00p [facility] Patricia Galeas M.D. 03095 R55 I48.0 R32 Office Visit 08/24/2016 1:45p [facility] Of Shantell Dyer M.D. 48872 M25.512 C.M.A. M75.42 S46.012A Office Visit 08/06/2016 3:00p [facility] Of Shantell Dyer M.D. 95472 M25.512 C.M.A. M75.42 S46.012A W19.xxxA M87.051 M87.052 M25.551 M25.552 Office Visit 08/03/2016 2:30p [facility] Of [facility] CHERELLE Orona 87235 I48.0 M25.511 M25.551 M25.512 Office Visit 07/06/2016 2:30p [facility] Of Shantell Dyer M.D. 06374 M25.551 C.M.A. M70.61 Office Visit 06/28/2016 2:00p [facility] Nadja Carreon 78565 M25.511 Of CEthan VILLARREAL S46.011A Office Visit 06/18/2016 1:15p [facility] Of Shantell Dyer M.D. 43453 M25.552 C.M.A. M25.551 M70.61 M70.62 M25.511 M25.512 M75.41 M75.42 Office Visit 06/07/2016 3:15p [facility] Of Patricia Galeas M.D. 46094 I48.1 [facility] R06.02 G47.9 I25.10 Office Visit 05/08/2016 1:30p [facility] Of Patricia Galeas M.D. 77546 R09.02 [facility] I48.1 Z68.31 I25.10 Office Visit 03/19/2016 2:15p [facility] Of Shantell Dyer M.D. 50194 M79.604 C.M.A. M79.605 Office Visit 03/16/2016 2:00p [facility] CHERELLE Orona 15458 I48.91 R09.02 Office Visit 03/02/2016 2:00p [facility] Of Shantell Dyer M.D. 88175 M65.221 C.M.A. M25.512 M25.511 M75.41 M75.42 Office Visit 02/10/2016 11:15a [facility] Of Shantell Dyer M.D. 03574 M25.551 C.M.A. M25.552 M16.11 M70.61 M70.62 Office Visit 12/13/2015 4:00p [facility] Of Patricia Galeas M.D. 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 19556 M54.5 C.M.A. Office Visit 11/30/2015 7:54a [facility], Jad Yu, 13243 I48.91 Hospitalists Ashwin I25.10 E87.6 I10 Office Visit 11/30/2015 3:52p [facility] Of Patricia Galeas M.D. 85628 I48.0 Primary [employer] Teacher Librarian Office Visit 11/29/2015 7:54a [facility], Jad Yu, 76579 I48.91 Hospitalists Ashwin I25.10 E87.6 I10 Office Visit 07/25/2015 9:45a [facility] Of Shantell Dyer M.D. 67328 M16.11 C.M.A. M70.61 M25.551 B02.8 Office Visit 07/04/2015 12:45p [facility] Of Shantell Dyer M.D. 40456 M16.11 C.M.A. M70.61 M25.551 Office Visit 06/27/2015 10:00a [facility] Of Shantell Dyer M.D. 77559 M16.11 C.M.A. M70.61 M25.551 Office Visit 07/20/2014 8:57a [facility], Kristen Ceballos, 29064 558.9 Hospitalists N.P. 427.31 414.00 276.8 Office Visit 07/19/2014 8:57a [facility], Kristen Ceballos, 69896 558.9 Hospitalists N.P. 427.31 414.00 276.8 Plan of Care Future Appointment(s):03/04/2018 10:30 am - Kristen Ceballos N.P. at [facility]02/17/2018 - Shantell Dyer M.D.Z96.641 Presence of right artificial hip jointNew Therapy:Physical TherapyFollow up:Follow up: 1 yearM54.30 Sciatica, unspecified side
--- OUTSIDE RECORDS SUMMARY | 2018-03-17 08:53 | XMS REPORT | Continuity of Care Document ---
:1945 External Reference #:[id number] Author Name Guevara Es Care Team Providers Name Role Phone Humberto Milner MD Primary Care Physician Unavailable Payers Type Date Identification Numbers Payment Provider Subscriber Policy Number: [id number] [facility] Douglas Maxwell PayID: [id number] [address] [address] [place] [address] Advance Directives Description No Information Available Problems Date Description Provider Status Onset: 06/27/2015 Localized, primary osteoarthritis Shantell Dyer M.D. Active of the pelvic region and thigh Onset: 07/25/2015 Zoster with other complications Shantell Dyer M.D. Active Onset: 12/07/2015 Low back pain Shantell Dyer M.D. Active Onset: 12/13/2015 Paroxysmal atrial fibrillation Patricia Galeas M.D. Active Onset: 12/13/2015 Coronary arteriosclerosis in Patricia Galeas M.D. Active [place] artery Onset: 12/13/2015 Essential hypertension Patricia Galeas [...] apnea syndrome Noemí Draper DNP, RN, Active [employer] Onset: 10/31/2016 Hypersomnia Noemí Draper DNP, RN, Active [employer] Onset: 11/26/2016 Cervical disc disorder Jeffery Blanchard M.D. Active Onset: 12/04/2016 Inflammatory and toxic neuropathy Patricia Galeas M.D. 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 Active Onset: 06/24/2017 Preoperative cardiovascular Patricia Galeas M.D. 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 Allergies, Adverse Reactions, Alerts Date Description Reaction Status Severity Comments 07/17/2017 Oxycontin Active 09/06/2017 Latex Active 06/27/2015 NKDA Inactive Medications Medication Date Status Form Strength Qnty SIG Indications Ordering Provider Oxycodone-Acetamin 11/27 Active Tablets 5-325mg 45tab 1 tabs by Shantell gallagher s mouth every Gomez, 6 hours as M.D. needed for pain Restless Leg 09/06 Active 4 tabs @ hs Lo, M.D. Cartia XT 09/06 Active Caps ER 240mg 90cap 1 by mouth 24HR s daily in in [facility], the morning M.DKarla Xarelto 09/01 Active Tablets 20mg 1 by mouth every day Ashwin Galeas Cpap Active Device using while Unknown /0000 sleeping (not as much as she should be per patient) Metoprolol Active Tablets 25mg 1 by mouth Unknown Tartrate / twice a day Cartia XT Active Caps ER 120mg 1 by mouth Unknown /0000 24HR every day Oxycodone-Acetamin 11/27 Hx Solution 5-325mg/5 Shantell ML Gomez, - M.D. 11/27 Diltiazem CD 10/21 Hx Caps ER 120mg 1 capsule I48.1 24HR am. Gudelia, - M.D. 01/05 Xarelto 10/21 Hx Tablets 15mg 1 by mouth every day Gudelia, - M.D. 11/08 Oxycodone-Acetamin 10/18 Hx Tablets 5-325mg 60tab 1-2 tablets s by mouth Gomez, - every 4-6 M.D. 11/07 hours needed for pain. Toprol XL 10/15 Hx Tablets 25mg 180ta 1 by mouth ER 24HR bs twice daily Gudelia, - M.D. 01/05 Bactrim DS 10/04 Hx Tablets 800-160mg 6tabs take 1 by mouth twice Gomez, - a day for 3 M.D. Xarelto 09/10 Hx Tablets 20mg 90tab 1 by mouth s every day Gudelia, - M.D. 10/21 Cartia XT 09/06 Hx Caps ER 120mg 30cap Take 1 by I10 Kristen S. 24HR s mouth daily Foster, - with the N.P. 10/20 240mg for total of 360mg Diltiazem HCL 07/09 Hx Tablets 60mg 90tab 2 tablets I48.1 s am, 1 [facility] [place], - tablet PM M.D. 10/21 Hydrocodone-Acetam 07/08 Hx Tablets 7.5-325mg 28tab take one s tab by Lo, - mouth every M.D. 10/21 8 hours as needed for pain [place] 07/03 Hx Tablets 5-325mg 60tab Wtake 1-2 s tabs by Lo, - mouth every M.D. 07/08 4-6 hours /2017 as needed for pain. Propafenone HCL 02/28 Hx Tablets 225mg 180ta 1 tab by Patricia bs mouth twice [facility] [place], - a day M.D. 03/04 Propafenone HCL 02/19 Hx Tablets 225mg 60tab 1 tab po I48.0 Patricia s twice a day [facility] [place], - (waiting to M.D. 02/18 start after ECG 02/19/17- has not been sent to pharmacy yet) Metoprolol 02/15 Hx Tablets 50mg 90tab 1/ by I47.2 Patricia Succinate ER /2016 ER 24HR s mouth every [facility] [place], - day ( M.D. 04/29 started medication change 04/26/17) Metoprolol / Hx Tablets 25mg 90tab 1 by mouth I47.2 Patricia Succinate ER /2016 ER 24HR s every day Gudelia, - PM M.D. 02/15 Cartia XT 10/10 Hx Caps ER 240mg 90cap 1 by mouth Patricia 24HR s every day [facility], - M.D. 10/20 Demadex 01/03 Hx Tablets 20mg 90tab t ablet prn s swelling, Gudelia, - previously M.D. 08/14 1 tablet PO /2017 3 days weekly and as recommended by ( Pt has not taken ) Lasix 11/30 Hx Tablets 20mg 30tab 1 by mouth s q day x 2 Gudelia, - with M.D. 01/03 potassium then prn Klor-Con M10 11/30 Hx Tablets 10Meq 60tab 2 tab by Patricia ER s mouth with Gudelia, - demadex M.D. 09/05 afterrnoon /2018 ( Takes 2 tablets prn when takes Torsemide) ( pt has not taken) Medrol 10/22 Hx Tablets 4mg 21tab take as M54.12 s directed F - per dosepak Jaqueline, 11/05 instruction MD s Methylprednisolone 09/28 Hx [...] 06/19 needed muscle spasms (Pt not taking) Troy Hx Tablets 10-325mg 1-2 by Unknown /0000 [...] mouth I48.1 Patricia Tartrate / s daily [facility] [place], - M.D. 06/07 Cartia XT Hx Caps ER 300mg 90cap 1 by mouth Patricia /0000 24HR s every day [facility], - Am M.D. 01/22 (Rivaroxaban) Hx 20mg one daily Patricia Xarelto /[address] [facility] [place], - M.D. 06/06 Magnesium Oxide Hx Capsules 400mg by mouth Unknown /0000 every day - 05/08 Restful Legs Hx Tablets 4 tablet Unknown /0000 - 02/14 G Hx Quick 4 tablet po Unknown / Disolve morning - daily 08/14 ( 4 [...] Administered Injection José Migueljana Flores Regadenoson, 018 [place], 0.1 MG Ashwin, PATITO, FASNC Technetium TC Administered Injection José Miguel Flores 99M 018 Carleen Lagos M.D., FACLeslie, Per Unit Dose FASNC Up To 40 Millicuries Depomedrol Administered Injection Shantell 40MG Sawyer Dyer M.D. Depomedrol Administered Injection Nadja B 40MG 017 CHERELLE Carreon Depomedrol Administered Injection Shantell 40MG Sawyer Dyer M.D. Depomedrol Administered Injection Shantell 40MG 017 Ashwin Dyer Technetium TC Administered Injection José Miguel Flores 99M 017 Carleen Lagos M.D., FACLeslie, Per Unit Dose FASNC Up To 40 Millicuries Depomedrol Administered Injection Shantell 40MG 016 Ashwin Dyer Depomedrol Administered Injection Shantell 40MG 016 Ashwin Dyer Depomedrol Administered Injection Shantell 40MG 016 Ashwin Dyer Depomedrol Administered Injection Shantell 40MG 016 Ashwin Dyer Immunizations Description No Information Available Vital Signs Date Vital Result Comment 03/04/2018 10:09am Height 64 inches 5'4" Heart Rate 105 /min irregular BP Systolic Sitting 125 mmHg Ra reg cuff BP Diastolic Sitting 80 mmHg Ra reg cuff BP Systolic Standing 120 mmHg Ra reg cuff BP Diastolic Standing 75 mmHg Ra reg cuff Respiratory Rate 18 /min Ejection Fraction 55-60% 05/17/17 echo 02/17/2018 10:17am Height 64 inches 5'4" Heart Rate 84 /min BP Systolic 116 mmHg BP Diastolic 70 mmHg Body Temperature 97.4 F Pain Level 3 01/09/2018 12:55pm Height 64 inches 5'4" Weight 196.00 lb with shoes Heart Rate 56 /min BP Systolic 160 mmHg Lue reg cuff BP Diastolic 94 mmHg Lue reg cuff BP Systolic Sitting 160 mmHg Lue reg cuff BP Diastolic Sitting 90 mmHg Lue reg cuff Respiratory Rate 18 /min BMI (Body Mass Index) 33.6 kg/m2 Ejection Fraction 55-60% date 05/17/17 ECHO 01/06/2018 10:12am Heart Rate 60 /min BP Systolic 126 mmHg BP Diastolic 72 mmHg Body Temperature 97.0 F Pain Level 0 11/25/2017 8:20am Height 64 inches 5'4" Weight 174.00 lb Heart Rate 68 /min BP Systolic 128 mmHg BP Diastolic 84 mmHg Pain Level 6 BMI (Body Mass Index) 29.9 kg/m2 11/08/2017 10:59am Height 64 inches 5'4" Weight 177.00 lb w/ shoes Heart Rate 90 /min BP Systolic Sitting 112 mmHg lue lg cuff BP Diastolic Sitting 68 mmHg lue lg cuff BP Systolic Standing 112 mmHg lue lg cuff BP Diastolic Standing 68 mmHg lue lg cuff Respiratory Rate 18 /min BMI (Body Mass Index) 30.4 kg/m2 Ejection Fraction 55-60% echo 05/17/17 10/25/2017 1:53pm Height 64 inches 5'4" Weight 175.00 lb BP Systolic 136 mmHg BP Diastolic 82 mmHg Body Temperature 98.4 F Pain Level 6 BMI (Body Mass Index) 30.0 kg/m2 10/02/2017 10:05am Height 64 inches 5'4" Weight 178.00 lb Heart Rate 60 /min BP Systolic 128 mmHg BP Diastolic 80 mmHg BMI (Body Mass Index) 30.6 kg/m2 09/06/2017 3:24pm Height 64 inches 5'4" Weight 176.00 lb Heart Rate 72 /min BP Systolic 128 mmHg BP Diastolic 62 mmHg Respiratory Rate 16 /min BMI (Body Mass Index) 30.2 kg/m2 Ejection Fraction 55-60% 05/17/2017 echo 09/06/2017 9:19am Height 64 inches 5'4" Weight 175.00 lb BP Systolic Sitting 132 mmHg BP Diastolic Sitting 80 mmHg Body Temperature 97.8 F Pain Level 4 BMI (Body Mass Index) 30.0 kg/m2 08/22/2017 1:50pm Height 64 inches 5'4" Weight 177.00 lb [...] 30.4 kg/m2 Ejection Fraction 55-60% 05/17/17 08/09/2017 9:03am Height 64 inches 5'4" Weight 174.00 lb BP Systolic Sitting 130 mmHg BP Diastolic Sitting 80 mmHg Pain Level 2 BMI (Body Mass Index) 29.9 kg/m2 07/30/2017 9:02am Height 64 inches 5'4" Weight 174.00 lb with shoes Heart Rate 88 /min irreg BP Systolic Sitting 132 mmHg Rue reg cuff BP Diastolic Sitting 76 mmHg Rue reg cuff BP Systolic Standing 128 mmHg Rue reg cuff BP Diastolic Standing 74 mmHg Rue reg cuff Respiratory Rate 16 /min BMI (Body Mass Index) 29.9 kg/m2 Ejection Fraction 55-60% 05/17/2017-echo 07/17/2017 1:06pm Weight 177.00 lb Heart Rate 104 /min BP Systolic Sitting 140 mmHg BP Diastolic Sitting 90 mmHg Body Temperature 97.8 F Pain Level 8 O2 % BldC Oximetry 92 % 07/09/2017 11:50am Heart Rate 128 /min irreg BP Systolic Sitting 150 mmHg Lue reg cuff BP Diastolic Sitting 90 mmHg Lue reg cuff BP Systolic Standing 144 mmHg Lue reg cuff BP Diastolic Standing 90 mmHg Lue reg cuff Respiratory Rate 22 /min 06/24/2017 1:29pm Height 64 inches 5'4" Weight 177.00 lb No shoes Heart Rate 68 /min BP Systolic Sitting 138 mmHg Rue reg cuff BP Diastolic Sitting 76 mmHg Rue reg cuff BP Systolic Standing 140 mmHg Rue reg cuff BP Diastolic Standing 72 mmHg Rue reg cuff Respiratory Rate 17 /min BMI (Body Mass Index) 30.4 kg/m2 Ejection Fraction 55-60% 05/17/2017-echo 06/19/2017 2:25pm Height 64 inches 5'4" Weight 178.00 lb Heart Rate 72 /min BP Systolic Sitting 130 mmHg BP Diastolic Sitting 80 mmHg Pain Level 9 BMI (Body Mass Index) 30.6 kg/m2 04/29/2017 11:46am Weight 178.00 lb with shoes Heart Rate [...] Ejection Fraction 55-60% date 07/20/2014 ECHO 03/28/2017 2:41pm Height 64 inches 5'4" Weight 178.00 lb Heart Rate 88 /min BP Systolic Sitting 130 mmHg Rue reg cuff BP Diastolic Sitting 78 mmHg Rue reg cuff BP Systolic Standing 126 mmHg Rue BP Diastolic Standing 74 mmHg Rue Respiratory Rate 16 /min BMI (Body Mass Index) 30.6 kg/m2 Ejection Fraction 55-60% 07/20/14 03/08/2017 2:44pm Height 64 inches 5'4" Heart Rate 76 /min apical BP Systolic Sitting 120 mmHg Ra< reg BP Diastolic Sitting 74 mmHg Ra< reg BP Systolic Standing 126 mmHg LA, reg BP Diastolic Standing 76 mmHg LA, reg 02/28/2017 2:35pm Height 64 inches 5'4" Heart Rate 58 /min BP Systolic Sitting 128 mmHg Lue reg cuff BP Diastolic Sitting 78 mmHg Lue reg cuff BP Systolic Standing 122 mmHg Lue reg cuff BP Diastolic Standing 70 mmHg Lue reg cuff Respiratory Rate 16 /min 02/19/2017 1:26pm Height 64 inches 5'4" Heart Rate 50 /min BP Systolic Sitting 110 mmHg Rue reg cuff BP Diastolic Sitting 60 mmHg Rue reg cuff BP Systolic Standing 120 mmHg Rue reg cuff BP Diastolic Standing 76 mmHg Rue reg cuff 02/15/2017 2:47pm Height 64 inches 5'4" Weight 179.00 lb with shoes Heart Rate 50 /min BP Systolic Sitting 120 mmHg Rue lg cuff BP Diastolic Sitting 72 mmHg Rue lg cuff BP Systolic Standing 128 mmHg Rue lg cuff BP Diastolic Standing 70 mmHg Rue lg cuff Respiratory Rate 16 /min BMI (Body Mass Index) 30.7 kg/m2 Ejection Fraction 55-60% date 07/20/16 ECHO 02/12/2017 12:55pm Height 64 inches 5'4" Weight 178.00 lb w/ shoes Heart Rate 58 /min reg BP Systolic Sitting 132 mmHg Rue, lg cuff BP Diastolic Sitting 74 mmHg Rue, lg cuff Respiratory Rate 16 /min O2 % BldC Oximetry 98 % on Ra BMI (Body Mass Index) 30.6 kg/m2 01/28/2017 3:10pm Height 64 inches 5'4" Weight 177.00 lb Heart Rate 78 /min BP Systolic Sitting 140 mmHg BP Diastolic Sitting 82 mmHg Pain Level 4 BMI (Body Mass Index) 30.4 kg/m2 01/22/2017 10:43am Weight 177.00 lb with shoes Heart Rate 74 /min BP Systolic 140 mmHg Lue lf cuff BP Diastolic 80 mmHg Lue lf cuff BP Systolic Sitting 160 mmHg Lue lg cuff BP Diastolic Sitting 90 mmHg Lue lg cuff BP Systolic Lying Down 118 mmHg Lyning R BP Diastolic Lying Down 90 mmHg Lyning R 12/12/2016 1:45pm Height 64 inches 5'4" Weight 218.00 lb Heart Rate 68 /min BP Systolic Sitting 120 mmHg BP Diastolic Sitting 68 mmHg Respiratory Rate 16 /min Pain Level 6 spasming feet back pain O2 % BldC Oximetry 95 % BMI (Body Mass Index) 37.4 kg/m2 12/04/2016 2:25pm Height 64 inches 5'4" Weight 182.00 lb with shoes Heart Rate 68 /min BP Systolic Sitting 136 mmHg Lue reg cuff BP Diastolic Sitting 70 mmHg Lue reg cuff BP Systolic Standing 140 mmHg Lue reg cuff BP Diastolic Standing 74 mmHg Lue reg cuff Respiratory Rate 18 /min BMI (Body Mass Index) 31.2 kg/m2 Ejection Fraction 55-60% 07/20/2016-echo 11/26/2016 1:32pm Height 64 inches 5'4" Weight 178.00 lb Heart Rate 72 /min BP Systolic Sitting 158 mmHg BP Diastolic Sitting 80 mmHg Pain Level 6 BMI (Body Mass Index) 30.6 kg/m2 11/05/2016 12:45pm Height 64 inches 5'4" Weight 178.00 lb Heart Rate 78 /min BP Systolic Sitting 140 mmHg BP Diastolic Sitting 80 mmHg Pain Level 8 BMI (Body Mass Index) 30.6 kg/m2 10/31/2016 1:01pm Height 64 inches 5'4" Weight 181.00 lb Heart Rate 64 /min BP Systolic Sitting 138 mmHg BP Diastolic Sitting 68 mmHg Respiratory Rate 14 /min O2 % BldC Oximetry 96 % BMI (Body Mass Index) 31.1 kg/m2 10/22/2016 2:11pm Height 64 inches 5'4" Weight 177.00 lb Heart Rate 86 /min Respiratory Rate 16 /min Pain Level 8 BMI (Body Mass Index) 30.4 kg/m2 10/12/2016 2:04pm Height 64 inches 5'4" Weight 177.00 lb Heart Rate 69 /min BP Systolic 138 mmHg BP Diastolic 71 mmHg Respiratory Rate 13 /min Pain Level 6 BMI (Body Mass Index) 30.4 kg/m2 09/28/2016 2:52pm Height 64 inches 5'4" Weight 177.00 lb Heart Rate 68 /min BP Systolic 122 mmHg BP Diastolic 78 mmHg Respiratory Rate 15 /min Body Temperature 97.7 F Pain Level 7 BMI (Body Mass Index) 30.4 kg/m2 09/24/2016 2:56pm Height 64 inches 5'4" Weight 177.00 lb Heart Rate 62 /min BP Systolic Sitting 124 mmHg right arm ,reg cuff BP Diastolic Sitting 76 mmHg right arm ,reg cuff Respiratory Rate 20 /min O2 % BldC Oximetry 97 % room air BMI (Body Mass Index) 30.4 kg/m2 Neck Circumference in inches 15 08/31/2016 12:44pm Height 64 inches 5'4" Weight 174.00 lb Heart Rate 62 /min BP Systolic Sitting 146 mmHg Lue reg cuff BP Diastolic Sitting 82 mmHg Lue reg cuff BP Systolic Standing 142 mmHg Lue reg cuff BP Diastolic Standing 82 mmHg Lue reg cuff Respiratory Rate 16 /min BMI (Body Mass Index) 29.9 kg/m2 Ejection Fraction 55-60% echo 07/201408/24/2016 1:19pm Height 64 inches 5'4" Weight 169.00 lb Heart Rate 68 /min BP Systolic 139 mmHg BP Diastolic 64 mmHg Body Temperature 97.4 F Pain Level 4 BMI (Body Mass Index) 29.0 kg/m2 08/06/2016 2:51pm Height 63 inches 5'3" Weight 172.00 lb Heart Rate 79 /min BP Systolic 161 mmHg BP Diastolic 88 mmHg Body Temperature 98.2 F BMI (Body Mass Index) 30.5 kg/m2 08/03/2016 2:10pm Height 63 inches 5'3" Weight 175.50 lb w/o shoes Heart Rate 72 /min BP Systolic Sitting 142 mmHg LA reg cuff BP Diastolic Sitting 86 mmHg LA reg cuff BP Systolic Standing 150 mmHg LA reg cuff BP Diastolic Standing 80 mmHg LA reg cuff BMI (Body Mass Index) 31.1 kg/m2 Ejection Fraction 55-60% Echo 07/20/14 07/06/2016 2:54pm Height 63 inches 5'3" Weight 172.00 lb Heart Rate 67 /min BP Systolic 141 mmHg BP Diastolic 68 mmHg Respiratory Rate 18 /min Body Temperature 98.0 F Pain Level 5 BMI (Body Mass Index) 30.5 kg/m2 06/28/2016 2:03pm Height 63 inches 5'3" Weight 172.00 lb Heart Rate 88 /min BP Systolic Sitting 130 mmHg BP Diastolic Sitting 78 mmHg Respiratory Rate 18 /min Pain Level 10 BMI (Body Mass Index) 30.5 kg/m2 06/18/2016 12:59pm Height 63 inches 5'3" Weight 172.00 lb Heart Rate 84 /min BP Systolic 118 mmHg BP Diastolic 74 mmHg Pain Level 10 BMI (Body Mass Index) 30.5 kg/m2 06/07/2016 3:15pm Height 63 inches 5'3" Weight 175.00 lb Heart Rate 80 /min BP Systolic Sitting 126 mmHg Lue reg cuff BP Diastolic Sitting 84 mmHg Lue reg cuff BP Systolic Standing 130 mmHg Lue BP Diastolic Standing 90 mmHg Lue Respiratory Rate 14 /min BMI (Body Mass Index) 31.0 kg/m2 Ejection Fraction 55-60% 07/20/14 05/08/2016 1:30pm Height 63 inches 5'3" Weight 176.00 lb Heart Rate 100 /min irregular BP Systolic Sitting 118 mmHg BP Diastolic Sitting 84 mmHg BP Systolic Standing 112 mmHg BP Diastolic Standing 82 mmHg Respiratory Rate 16 /min BMI (Body Mass Index) 31.2 kg/m2 Ejection Fraction 55-60% 07/20/14 03/19/2016 2:36pm Height 63 inches 5'3" Heart Rate 52 /min BP Systolic 135 mmHg BP Diastolic 74 mmHg 03/16/2016 2:06pm Height 63 inches 5'3" Weight 172.00 lb [...] Fraction 55-60% as of 07/20/14 echo 03/02/2016 2:13pm Height 63 inches 5'3" Weight 165.00 lb BP Systolic 128 mmHg BP Diastolic 70 mmHg BMI (Body Mass Index) 29.2 kg/m2 02/20/2016 10:36am Height 63 inches 5'3" Weight 164.00 lb Pain Level 0 BMI (Body Mass Index) 29.0 kg/m2 02/10/2016 11:40am Height 63 inches 5'3" Weight 164.00 lb Respiratory Rate 16 /min Pain Level 6 BMI (Body Mass Index) 29.0 kg/m2 12/13/2015 3:46pm Height 63 inches 5'3" Weight 164.50 lb no shoes Heart Rate 62 /min BP Systolic Sitting 152 mmHg LA reg cuff BP Diastolic Sitting 70 mmHg LA reg cuff BP Systolic Standing 146 mmHg LA reg cuff BP Diastolic Standing 66 mmHg LA reg cuff Respiratory Rate 16 /min BMI (Body Mass Index) 29.1 kg/m2 Ejection Fraction 55-60% 07/20/14 12/07/2015 8:05am Heart Rate 60 /min BP Systolic 131 mmHg BP Diastolic 71 mmHg Pain Level 0 07/25/2015 9:14am Height 63 inches 5'3" Weight 170.00 lb Pain Level 5 BMI (Body Mass Index) 30.1 kg/m2 07/04/2015 12:56pm Height 63 inches 5'3" Weight 170.00 lb Pain Level 8 BMI (Body Mass Index) 30.1 kg/m2 06/27/2015 10:18am Height 63 inches 5'3" Weight 170.00 lb Heart Rate 76 /min BP Systolic Sitting 150 mmHg BP Diastolic Sitting 70 mmHg Respiratory Rate 16 /min Pain Level 8 BMI (Body Mass Index) 30.1 kg/m2 Results Test Date Facility Test Result H/L Range Note Laboratory Studies 10/18/2017 N2N/CCD Import Anion Gap 8 mmol/L 2-11 BUN/Creatinine Ratio [...] 3.5-5.0 Sodium Level 137 mmol/L 135-145 Laboratory 10/17/2017 N2N/CCD [employer] 1.31 High 0.77-1.02 Studies Ratio (Anticoag Ther) Inr/Protime 10/02/2017 [facility] Inr 1.10 High 0.77-1.[address] [place] [address] [phone] Laboratory test 10/02/2017 [facility] Partial Thrombo 35.1 seconds N 26.0-36.3 [address] [place] [address] [phone] Basic Metabolic 10/02/2017 [facility] Sodium 141 mmol/L N 135- [address] [place] [address] [phone] Potassium 4.2 mmol/L N 3.5-5.0 Chloride 104 mmol/L N 101-111 Co2 Carbon Dioxide 29 mmol/L N 22-32 Anion Gap 8 mmol/L N 2-11 Glucose 123 mg/dL High 70-100 Blood Urea Nitrogen 15 mg/dL N 6-24 Creatinine 0.99 mg/dL High 0.51-0.95 BUN/Creatinine Ratio 15.2 N 8-20 Calcium 9.8 mg/dL N 8.6-10.3 Egfr Non- 55.1 >60 Egfr 70.9 >60 3 Urinalysis Profile 10/02/2017 [facility] Urine Color Yellow [address] [place] [address] [phone] Urine Appearance Clear Urine Specific [place] 1.020 N 1.010-1.030 Urine pH 5.0 N 5-9 Urine Urobilinogen Negative Negative Urine Ketones Negative Negative Urine Protein Negative Negative Urine Leukocytes Negative Negative Urine Blood Negative Negative Urine Nitrite Negative Negative Urine Bilirubin Negative Negative Urine Glucose Negative Negative Type & Screen 10/02/2017 [facility] Patient Blood Type O Negative [address] [place] [address] [phone] Antibody Screen NEGATIVE Urine Culture And 10/02/2017 [facility] Urine Culture SEE RESULT [address] [place] [address] [phone] Basic Metabolic 06/25/2017 [facility] Sodium 139 mmol/L N 133- [address] [place] [address] [phone] Potassium 4.6 mmol/L N 3.5-5.0 Chloride 104 mmol/L N 101-111 Co2 Carbon Dioxide 27 mmol/L N 22-32 Anion Gap 8 mmol/L N 2-11 Glucose 104 mg/dL High 70-100 Blood Urea Nitrogen 18 mg/dL N 6-24 Creatinine 0.85 mg/dL N 0.51-0.95 BUN/Creatinine Ratio 21.2 High 8-20 Calcium 9.7 mg/dL N 8.6-10.3 Egfr Non- 65.7 >60 Egfr 84.5 >60 5 CBC No Diff 06/25/2017 [facility] White Blood 6.8 10^3/uL N 3.5-10.[address] [place] [address] [phone] Red Blood Count 4.86 10^6/uL N 4.0-5.4 Hemoglobin 14.4 g/dL N 12.0-16.0 Hematocrit 43 % N 35-47 Mean Corpuscular Volume 89 fL N 80-97 Mean Corpuscular Hemoglobin 30 pg N 27-31 Mean Corpuscular HGB Conc 33 g/dL N 31-36 Red Cell Distribution Width 14 % N 10.5-15 Platelet Count 240 10^3/uL N 150-450 Mean Platelet Volume 8 um3 N 7.4-10.4 Laboratory test 06/25/2017 [facility] TSH (Thyroid 2.41 mcIU/mL N 0.34-5.[address] Stim [place]orm) [place] [address] [phone] Basic Metabolic 04/11/2017 [facility] Sodium 137 mmol/L N 133- [address] [place] [address] [phone] Potassium 4.0 mmol/L N 3.5-5.0 Chloride 107 mmol/L N 101-111 Co2 Carbon Dioxide 23 mmol/L N 22-32 Anion Gap 7 mmol/L N 2-11 Glucose 101 mg/dL High 70-100 Blood Urea Nitrogen 21 mg/dL N 6-24 Creatinine 0.67 mg/dL N 0.51-0.95 BUN/Creatinine Ratio 31.3 High 8-20 Calcium 8.7 mg/dL N 8.6-10.3 Egfr Non- 86.5 >60 Egfr 111.3 >60 6 Laboratory test 04/11/2017 [facility] B-Type 178 pg/mL High [address] [place] [address] Peptide BNP [phone] Basic Metabolic 01/22/2017 [facility] Sodium 139 mmol/L N 133- [address] [place] [address] [phone] Potassium 4.1 mmol/L N 3.5-5.0 Chloride 104 mmol/L N 101-111 Co2 Carbon Dioxide 26 mmol/L N 22-32 Anion Gap 9 mmol/L N 2-11 Glucose 103 mg/dL High 70-100 Blood Urea Nitrogen 16 mg/dL N 6-24 Creatinine 0.70 mg/dL N 0.51-0.95 BUN/Creatinine Ratio 22.9 High 8-20 Calcium 9.5 mg/dL N 8.6-10.3 Egfr Non- 82.5 N >60 Egfr 106.1 N >60 8 Laboratory test 01/22/2017 [facility] Magnesium 2.0 mg/dL N 1.9-2.[address] [place] [address] [phone] CBC Auto Diff 06/29/2016 [facility] White Blood 15.0 High 3.5- 10.[address] Count 10^3/[place] [address] [phone] Red Blood Count 5.15 10^6/uL N 4.0-5.4 Hemoglobin 15.5 g/dL N 12.0-16.0 Hematocrit 47 % N 35-47 Mean Corpuscular Volume 91 fL N 80-97 Mean Corpuscular Hemoglobin 30 pg N 27-31 Mean Corpuscular HGB Conc 33 g/dL N 31-36 Red Cell Distribution Width 15 % N 10.5-15 Platelet Count 234 10^3/uL N 150-450 Mean Platelet Volume 8 um3 N 7.4-10.4 Abs Neutrophils 12.5 10^3/uL High 1.5-7.7 Abs Lymphocytes 1.5 10^3/uL N 1.0-4.8 Abs Monocytes 0.9 10^3/uL High 0-0.8 Abs Eosinophils 0 10^3/uL N 0-0.6 Abs Basophils 0.1 10^3/uL N 0-0.2 Abs Nucleated RBC 0 10^3/uL N Granulocyte % 83.2 % High 38-83 Lymphocyte % 9.8 % Low 25-47 Monocyte % 6.3 % N 1-9 Eosinophil % 0.1 % N 0-6 Basophil % 0.6 % N 0-2 Nucleated Red Blood Cells % 0 N Basic Metabolic 06/29/2016 [facility] Sodium 131 mmol/L Low 133-[address] [place] [address] [phone] Potassium 4.3 mmol/L N 3.5-5.0 Chloride 101 mmol/L N 101-111 Co2 Carbon Dioxide 23 mmol/L N 22-32 Anion Gap 7 mmol/L N 2-11 Glucose 111 mg/dL High 70-100 Blood Urea Nitrogen 21 mg/dL N 6-24 Creatinine 0.64 mg/dL N 0.51-0.95 BUN/Creatinine Ratio 32.8 High 8-20 Calcium 9.1 mg/dL N 8.6-10.3 Egfr Non- 91.5 N >60 Egfr 117.6 N >60 9 Laboratory test 06/29/2016 [facility] Magnesium 2.0 mg/dL N 1.9-2.[address] [place] [address] [phone] Arthritis Panel 06/20/2016 [facility] Uric Acid 5.4 mg/dL N 2.3-6.[address] [place] [address] [phone] Erythrocyte Sed Rate 11 mm/Hr N 0-40 Rheumatoid Factor <15 IU/mL N <15 10 Anti-Nuclear Antibody 0.2 U N 11 Cyclic Citrullinated Peptide <15.6 U N 12 Interpretation See Comment N 13 1 AA 10/15 2 AA 10/15 [...] [address]: Shantell Dyer MD Acct: [id number] Unit: [id number] AGE: 72 Location: [facility] Re/20/18 SEX: F Status: REG REF SPEC: [id number] JUWAN: 10/02/17 [facility] DR: Shantell Dyer MD REQ: [id number] RECD: 10/02/17 STATUS: COMP _ SOURCE: URINE SPDESC: ORDERED: Urine Culture COMMENTS: SHANA 10/15 QUERIES: Urine Source: Clean Catch Procedure Result Reported Site Urine Culture Final 10/04/17- 0749 ML Organism 1 ESCHERICHIA COLI [place] Count >100,000 (Many) CFU/ML 1. ESCHERICHIA COLI [...] . END OF REPORT DEPARTMENT OF PATHOLOGY, [address] [place] [address] Nathaniel De León M.D. Director [facility] # [id number] 5 Because ethnic data is not always [...] <15 (or dialysis) 10 Test Performed by: [address] [address] 11 REFERENCE VALUE <=1.0 (Negative) 12 REFERENCE VALUE <20.0 (Negative) 13 Tests for antibodies to dsDNA and BILL antigens are not performed automatically unless the KRYSTEN result is > or= 3.0 U. Studies performed at [facility] indicate that positive KRYSTEN results <3.0 U are rarely accompanied by positive second order tests. Test Performed by: [facility] - [address] [address] Procedures Date Code Description Status 01/20/2018 72581 Implantable Cardio System Loop Recorder Sys Remota Data Completed Acquistio 01/20/2018 35223 Interrogation Dev Loop Recorder Incl Physician Completed Analysis,Rev,Repor 01/09/2018 11019 EKG Tracing & Interpretation Completed 12/20/2017 42601 Implantable Cardio System Loop Recorder Sys Remota Data Completed Acquistio 12/20/2017 87816 Interrogation Dev Loop Recorder Incl Physician Completed Analysis,Rev,Repor 11/27/2017 21760 Cardioversion Completed 11/19/2017 92302 Implantable Cardio System Loop Recorder Sys Remota Data Completed Acquistio 11/19/2017 73204 Interrogation Dev Loop Recorder Incl Physician Completed Analysis,Rev,Repor 11/08/2017 18104 EKG Tracing & Interpretation Completed 10/19/2017 39182 Implantable Cardio System Loop Recorder Sys Remota Data Completed Acquistio 10/19/2017 76442 Interrogation Dev Loop Recorder Incl Physician Completed Analysis,Rev,Repor 10/17/2017 18036 EKG, Interpretation Only Completed 10/15/2017 28711 THR Total Hip Replacement Completed 10/15/2017 96911 THR Total Hip Replacement Completed 09/18/2017 85308 Implantable Cardio System Loop Recorder Sys Remota Data Completed Acquistio 09/18/2017 49509 Interrogation Dev Loop Recorder Incl Physician Completed Analysis,Rev,Repor 09/06/2017 13900 EKG Tracing & Interpretation Completed 08/22/2017 15947 EKG Tracing & Interpretation Completed 08/22/2017 38273 EKG Tracing & Interpretation Completed 08/18/2017 53254 Implantable Cardio System Loop Recorder Sys Remota Data Completed Acquistio 08/18/2017 57550 Interrogation Dev Loop Recorder Incl Physician Completed Analysis,Rev,Repor 08/15/2017 07790 Cardioversion Completed 08/15/2017 52269 EKG, Interpretation Only Completed 08/15/2017 83716 Moderate Sedation Services; Same Phys Intl 15 Mins; PT >=5 Completed Years 07/30/2017 80129 EKG Tracing & Interpretation Completed 07/18/2017 99031 Implantable Cardio System Loop Recorder Sys Remota Data Completed Acquistio 07/18/2017 30559 Interrogation Dev Loop Recorder Incl Physician Completed Analysis,Rev,Repor 07/09/2017 15108 EKG Tracing & Interpretation Completed 07/02/2017 24628 Anterior Instrumentation 2-3 Vertebral Segments Completed 07/02/2017 75933 Anterior Instrumentation 2-3 Vertebral Segments Completed 07/02/2017 49217 arthrodesis,anterior interbody incl disc space Completed prep,discectomy,de 07/02/2017 30851 arthrodesis,anterior interbody incl disc space Completed prep,discectomy,de 07/02/2017 74424 Allograft For Spine Surgery,Structural (Bone Bank) Completed 06/25/2017 94940 Pulmonary Function><Bronchodil Completed 06/24/2017 64579 EKG Tracing & Interpretation Completed 06/17/2017 25609 Implantable Cardio System Loop Recorder Sys Remota Data Completed Acquistio 06/17/2017 40212 Interrogation Dev Loop Recorder Incl Physician Completed Analysis,Rev,Repor 05/28/2017 55039 Stress Test Completed 05/28/2017 92771 Myocardial Perfusion Imaging Tomographic (Spect) Multiple Completed Studies 05/17/2017 80662 ECHO Transthoracic, Real-Time 2D With Doppler And Color Completed Flow 05/17/2017 34908 ECHO Transthoracic, Real-Time 2D With Doppler And Color Completed Flow 05/17/2017 38406 Implantable Cardio System Loop Recorder Sys Remota Data Completed Acquistio 05/17/2017 76736 Interrogation Dev Loop Recorder Incl Physician Completed Analysis,Rev,Repor 04/29/2017 87432 EKG Tracing & Interpretation Completed 04/16/2017 25065 Implantable Cardio System Loop Recorder Sys Remota Data Completed Acquistio 04/16/2017 09520 Interrogation Dev Loop Recorder Incl Physician Completed Analysis,Rev,Repor 04/11/2017 89650 Cardioversion Completed 04/11/2017 31545 EKG, Interpretation Only Completed 04/11/2017 30517 Moderate Sedation Services; Same Phys Intl 15 Mins; PT >=5 Completed Years 03/28/2017 12984 EKG Tracing & Interpretation Completed 03/16/2017 25026 Implantable Cardio System Loop Recorder Sys Remota Data Completed Acquistio 03/16/2017 14508 Interrogation Dev Loop Recorder Incl Physician Completed Analysis,Rev,Repor 03/08/2017 19877 EKG Tracing & Interpretation Completed 03/08/2017 22535 EKG Tracing & Interpretation Completed 03/08/2017 02354 EKG Tracing & Interpretation Completed 03/08/2017 93907 EKG Tracing & Interpretation Completed 02/28/2017 50074 EKG Tracing & Interpretation Completed 02/28/2017 93672 EKG Tracing & Interpretation Completed 02/19/2017 10454 EKG Tracing & Interpretation Completed 02/19/2017 65101 EKG Tracing & Interpretation Completed 02/15/2017 95724 EKG Tracing & Interpretation Completed 02/13/2017 83981 Implantable Cardio System Loop Recorder Sys Remota Data Completed Acquistio 02/13/2017 94047 Interrogation Dev Loop Recorder Incl Physician Completed Analysis,Rev,Repor 01/22/2017 86609 EKG Tracing & Interpretation Completed 01/13/2017 48105 Implantable Cardio System Loop Recorder Sys Remota Data Completed Acquistio 01/13/2017 18364 Interrogation Dev Loop Recorder Incl Physician Completed Analysis,Rev,Repor 12/13/2016 86385 Implantable Cardio System Loop Recorder Sys Remota Data Completed Acquistio 12/13/2016 33757 Interrogation Dev Loop Recorder Incl Physician Completed Analysis,Rev,Repor 11/12/2016 04494 Implantable Cardio System Loop Recorder Sys Remota Data Completed Acquistio 11/12/2016 16766 Interrogation Dev Loop Recorder Incl Physician Completed Analysis,Rev,Repor 10/11/2016 44707 Implant Cardiac Loop Recorder Completed 10/02/2016 12844 Sleep Study Unattended,HRT Rate,Oxygen Sat,Resp Completed Effort/Airflow 08/31/2016 45850 EKG Tracing & Interpretation Completed 08/06/2016 94056 Inject/Drain Joint/Bursa Major W/O US Completed 08/03/2016 92958 EKG Tracing & Interpretation Completed 06/29/2016 78270 EKG, Interpretation Only Completed 06/29/2016 74408 Cardioversion Completed 06/28/201677043 Inject/Drain Joint/Bursa Major W/O US Completed 06/18/201649580 Inject/Drain Joint/Bursa Major W/O US Completed 06/07/2016 92409 EKG Tracing & Interpretation Completed 05/22/2016 42454 Stress Test Completed 05/22/2016 41408 Myocardial Perfusion Imaging Tomographic (Spect) Multiple Completed Studies 03/25/2016 55391 Holter Monitor Review (24 hr)dr review & interp only Completed 03/21/2016 68830 ECG Monitor/Recording W/Visual Superimposition Scanning Completed 03/16/2016 67458 EKG Tracing & Interpretation Completed 03/02/201654928 Inject/Drain Joint/Bursa Major W/O US Completed 02/20/2016 Injection Single Tendon Origin/Insertion Completed 02/10/2016 Injection Single Tendon Origin/Insertion Completed 12/13/2015 06546 EKG Tracing & Interpretation Completed 11/30/2015 40790 Color Flow Doppler/Interp & Reprt Completed 11/30/2015 88698 Pulse Wave/Continuous-Interp.RPT Completed 11/30/2015 41211 Echocardiography, Transesophageal, Real Time W/Image 2D Completed W/W/O M-M 11/30/2015 30785 EKG, Interpretation Only Completed 11/30/2015 41673 Cardioversion Completed 06/27/201516547 Inject/Drain Joint/Bursa Major W/O US Completed 07/20/2014 14033 ECHO Transthorasic Realtime 2D W Doppler & Color Flow Hosp Completed 07/19/2014 54391 EKG, Interpretation Only Completed Encounters Type Date Location Provider Dx Diagnosis Office Visit 02/17/2018 Orthopedic Shantell Dyer, Z96.641 Presence of right 9:45a Services Of LacieAKarla Christopher artificial hip joint M54.30 Sciatica, unspecified side Office Visit 01/09/2018 1:10p [facility] Patricia Galeas I48.0 Paroxysmal atrial Of Nut Grinder M.D. fibrillation I10 Essential (primary) hypertension R42 Dizziness and giddiness R60.0 Localized edema Office Visit 11/08/2017 11:00a [facility] Patricia Galeas I48.0 Paroxysmal atrial Of Nut Grinder AT [facility] M.D. fibrillation R06.02 Shortness of breath Office Visit 11/06/2017 [facility] Debra I48.91 Unspecified 12:07p Assoc,tara Redding NP atrial Hospitalists fibrillation I95.9 Hypotension, unspecified R19.7 Diarrhea, unspecified Office Visit 11/05/2017 [facility] Emi Robbins I48.91 Unspecified 12:07p Assoc,tara Wellington NP atrial Hospitalists fibrillation R07.9 Chest pain, unspecified I95.9 Hypotension, unspecified R19.7 Diarrhea, unspecified Office Visit 10/17/2017 [facility] Kunal I48.91 Unspecified atrial 2:38p Assoc,CHERELLE Rojas fibrillation Hospitalists M25.551 Pain in right hip Z96.641 Presence of right artificial hip joint Office Visit 10/16/2017 [facility] Kunal I48.91 Unspecified atrial 2:38p Assoc,CHERELLE Rojas fibrillation Hospitalists M25.551 Pain in right hip Z96.641 Presence of right artificial hip joint Office Visit 10/15/2017 [facility] Jad I48.91 Unspecified atrial 4:34p Assbritany,tara Yu M.D. fibrillation Hospitalists I25.10 Athscl heart disease of [place] coronary artery w/o ang pctrs I10 Essential (primary) hypertension Z96.641 Presence of right artificial hip joint Office Visit 09/06/2017 3:30p [facility] Kristen S. I48.1 Persistent atrial Of [facility] Foster, N.P. 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 Z95.818 Presence of Of Nut Grinder Tucker, N.P. other cardiac implants and grafts I48.91 Unspecified atrial fibrillation I10 Essential (primary) hypertension Office Visit 07/30/2017 9:30a [facility] Kristen S. I10 Essential ( primary) Of [facility] Tucker, N.P. hypertension I48.1 Persistent atrial fibrillation Office Visit 07/09/2017 [facility] Patricia Galeas, I48.1 Persistent atrial 11:30a Of Nut Grinder M.D. fibrillation Office Visit 07/03/2017 [facility] I48.91 Unspecified atrial 10:13a Assoc,pc Tulio, TSA SCREENER fibrillation Hospitalists M54.12 Radiculopathy, cervical region I10 Essential (primary) hypertension Office Visit 07/02/2017 [facility] I48.91 Unspecified 10:12a Assoc,tara Gomez, N.P. atrial Hospitalists fibrillation M54.12 Radiculopathy, cervical region I10 Essential (primary) hypertension Office Visit 06/24/2017 [place] Patricia Galeas, Z01.810 Encounter for 1:50p Cardiology Of M.D. 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 fibrillation R06.02 Shortness of breath G47.33 Obstructive sleep apnea (adult) (pediatric) I25.119 Athscl heart disease of [place] cor art w unsp ang pctrs Office Visit 03/28/2017 2:30p [facility] Patricia Galeas I48.1 Persistent atrial Of Nut Grinder M.D. fibrillation R06.02 Shortness of breath Z95.818 Presence of other cardiac implants and grafts Office Visit 02/19/2017 1:30p [facility] Karol Snwo, I48.0 Paroxysmal atrial Of [facility] PA fibrillation R06.02 Shortness of breath Z95.818 Presence of other cardiac implants and grafts Office Visit 02/15/2017 2:45p [facility] Patricia Galeas, I48.0 Paroxysmal atrial Of Nut Grinder M.D. fibrillation G47.33 Obstructive sleep apnea (adult) (pediatric) I25.10 Athscl heart disease of [place] coronary artery w/o ang pctrs R06.02 Shortness of breath Office Visit 02/12/2017 [facility] And Noemí G47.33 Obstructive sleep 1:00p Sleep Services Of SAYRA Draper RN, apnea (adult) [facility] LIME KILN OPERATOR-BC (pediatric) G47.14 Hypersomnia due to medical condition F40.240 Claustrophobia Office Visit 01/28/2017 Neurosurgery Jeffery M47.812 Spondylosis w/o 3:20p Services Of Charlee Blanchard M.D. 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 vertigo, unspecified ear G62.9 Polyneuropathy, unspecified R60.0 Localized edema I48.0 Paroxysmal atrial fibrillation R42 Dizziness and giddiness Office Visit 11/26/2016 Neurosurgery Jeffery Blanchard, M50.821 Other cervical 1:30p Services Of [facility] Ashwin disc disorders at C4-C5 level Office Visit 11/05/2016 Neurosurgery Kimi Hurt, M54.12 Radiculopathy, 1:00p Services Of [facility] PA-C cervical region Office Visit 10/31/2016 [facility] G47.33 Obstructive 1:15p Sleep Services Of SAYRA Draper RN, sleep apnea [facility] LIME KILN OPERATOR-BC (adult) (pediatric) G47.10 Hypersomnia, unspecified F40.240 Claustrophobia Office Visit 10/22/2016 Orthopedic Jah Bertrand M47.22 Other spondylosis 2:00p Services Of MD Jaqueline with radiculopathy, C.M.A. cervical region M75.52 Bursitis of left shoulder Office Visit 10/12/2016 2:15p Orthopedic Shantell Dyer M25.512 Pain in left Services Of C.M.A. M.D. shoulder M75.42 Impingement syndrome of left shoulder S46.012A Strain of musc/tend the rotator cuff of left shoulder, init Office Visit 09/28/2016 2:30p Orthopedic Shantell Dyer M25.512 Pain in left Services Of C.M.A. M.D. shoulder M75.42 Impingement syndrome of left shoulder S46.012A Strain of musc/tend the rotator cuff of left shoulder, init Office Visit 09/24/2016 2:45p [facility] And Sleep María Ross, R06.83 Snoring Services Of Charlee ROBERTSON G47.10 Hypersomnia, unspecified R51 Headache R45.1 Restlessness and agitation R55 Syncope and collapse Office Visit 08/31/2016 1:00p [facility] Patricia Galeas, R55 Syncope and Of Charlee Christopher collapse I48.0 Paroxysmal atrial fibrillation R32 Unspecified urinary incontinence Office Visit 08/24/2016 1:45p Orthopedic Shantell Dyer M25.512 Pain in left Services Of C.M.A. M.D. shoulder M75.42 Impingement syndrome of left shoulder S46.012A Strain of musc/tend the rotator cuff of left shoulder, init Office Visit 08/06/2016 3:00p Orthopedic Shantell Dyer M25.512 Pain in left Services Of C.M.A. M.D. 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 M.D. hip M70.61 Trochanteric bursitis, right hip Office Visit 06/28/2016 2:00p Orthopedic Nadja B M25.511 Pain in right Services Of Lauri PA shoulder C.M.A. S46.011A Strain of musc/tend the rotator cuff of right shoulder, init Office Visit 06/18/2016 1:15p Orth[facility] Services Shantell Dyer, M25.552 Pain in left Of C.M.A. M.D. hip M25.551 Pain in right hip M70.61 Trochanteric bursitis, right hip M70.62 Trochanteric bursitis, left hip M25.511 Pain in right shoulder M25.512 Pain in left shoulder M75.41 Impingement syndrome of right shoulder M75.42 Impingement syndrome of left shoulder Office Visit 06/07/2016 3:15p [facility] Patricia Galeas, I48.1 Persistent atrial Of Nut Grinder M.D. fibrillation R06.02 Shortness of breath G47.9 Sleep disorder, unspecified I25.10 Athscl heart disease of [place] [facility] Office Visit 05/08/2016 1:30p [facility] Of Patricia Galeas, R09.02 Hypoxemia Nut Grinder M.D. I48.1 Persistent atrial fibrillation Z68.31 Body mass index (BMI) 31.0-31.9, adult I25.10 Athscl heart disease of [place] [facility] 03/19/2016 2:15p [facility] Services Shantell Dyer, M79.604 Pain in right Of C.M.A. M.D. leg M79.605 Pain in left leg Office Visit 03/16/2016 2:00p [facility] Karol Snow, I48.91 Unspecified atrial Of Nut Grinder PA fibrillation R09.02 Hypoxemia Office Visit 03/02/2016 2:00p Orthopedic Shantell Dyer, M65.221 Calcific Services Of Ashwin tendinitis, right C.M.A. upper arm M25.512 Pain in left shoulder M25.511 Pain in right shoulder M75.41 Impingement syndrome of right shoulder M75.42 Impingement syndrome of left shoulder Office Visit 02/10/2016 11:15a [facility] Services Shantell Dyer, M25.551 Pain in right Of C.M.A. M.D. hip M25.552 Pain in left hip M16.11 Unilateral primary osteoarthritis, right hip M70.61 Trochanteric bursitis, right hip M70.62 Trochanteric bursitis, left hip Office Visit 12/13/2015 4:00p [facility] Patricia Galeas, I48.0 Paroxysmal atrial Of Charlee M.DKarla fibrillation I25.10 Athscl heart disease of [place] coronary artery w/o ang pctrs I10 Essential (primary) hypertension E78.2 Mixed hyperlipidemia R06.01 Orthopnea G47.9 Sleep disorder, unspecified Office Visit 12/07/2015 Orthopedic Shantell Dyer, M54.5 Low back pain 8:00a Services Of Familia Christopher Office Visit 11/30/[address] [place] [address] I48.91 Unspecified atrial 7:54a Assoctara M.D. fibrillation Hospitalists I25.10 Athscl heart disease of [place] coronary artery w/o ang pctrs E87.6 Hypokalemia I10 Essential (primary) hypertension Office Visit 11/30/2015 [facility] Patricia Galeas, I48.0 Paroxysmal atrial 3:52p Of Charlee M.D. fibrillation Office Visit 11/29/[address] [place] [address] I48.91 Unspecified atrial 7:54a Assoc,tara Yu M.D. fibrillation Hospitalists I25.10 Athscl heart disease of [place] coronary artery w/o ang pctrs E87.6 Hypokalemia I10 Essential (primary) hypertension Office Visit 07/25/2015 Orthopedic Shantell M16.11 Unilateral primary 9:45a Services Of Ashwin Dyer osteoarthritis, right C.M.A. hip M70.61 Trochanteric bursitis, right hip M25.551 Pain in right hip B02.8 Zoster with other complications Office Visit 07/04/2015 Orthopedic Shantell M16.11 Unilateral primary 12:45p Services Of Diana Dyer. osteoarthritis, right C.M.A. hip M70.61 Trochanteric bursitis, right hip M25.551 Pain in right hip Office Visit 06/27/2015 Orthopedic Shantell M16.11 Unilateral primary 10:00a Services Of Ashwin Dyer osteoarthritis, right C.M.A. hip M70.61 Trochanteric bursitis, right hip M25.551 Pain in right hip Office Visit 07/20/2014 [facility] Kristen S. 558.9 Gastroenteritis & 8:57a Assoc,tara Ceballos, N.P. Colitis Hospitalists Noninfectious Other 427.31 Atrial Fibrillation 414.00 Coronary Atherosclerosis Unspec Type Vessel [place]/Graft 276.8 Hypopotassemia Office Visit 07/19/2014 [facility] Kristen S. 558.9 Gastroenteritis & 8:57a Assoc,tara Ceballos, N.P. Colitis Hospitalists Noninfectious Other 427.31 Atrial Fibrillation 414.00 Coronary Atherosclerosis Unspec Type Vessel [place]/Graft 276.8 Hypopotassemia Plan of Treatment Future Appointment(s):03/11/2018 10:00 am - Nurse Visit IC at [facility]02/18/2019 9:00 am - Shantell Dyer M.D. at [facility]opedic Services C.M.A.03/04/2018 - Kristen Ceballos, N.P.I10 Essential (primary) dykujamqegshE25.1 Persistent atrial fibrillationReferral:Augusto Littlejohn MD, Cardiac ElectrophyslgyFollow up:OV Gudelia TBD depending on tikosyn or ablation. [place] on Saturday with EKG.Recommendations:STOP propafenone Have labwork done to check electrolytes Return on Saturday for EKG.
[2018-03-17 10:40] LABS: Hematocrit 48 % (35-47); Mean Corpuscular HGB Conc 34 g/dl (31-36); Mean Corpuscular Hemoglobin 30 pg (27-31); Mean Corpuscular Volume 89 fL (80-97); Mean Platelet Volume 7.8 fL (7.4-10.4); Platelet Count 247 10^3/ul (150-450); Red Blood Count 5.39 10^6/ul (4.00-5.40); Red Cell Distribution Width 16 % (10.5-15); White Blood Count 7.3 10^3/ul (3.5-10.8)
[2018-03-17] MEDS ORDERED: Dofetilide CAP* 500 MCG PO SCH (11:30)
[2018-03-17] MEDS: HYDROcodone/ACETAMIN 5-325 MG* 1 TAB PO PRN (20:01)
[2018-03-17] MEDS: Rivaroxaban TAB(*) 15 MG PO SCH (20:01)
[2018-03-17] MEDS: Dofetilide CAP* 250 MCG PO SCH (21:07)
[2018-03-17] MEDS: Metoprolol Succinate XL TAB* 25 MG PO SCH (21:08)
[2018-03-18] MEDS: Metoprolol Succinate XL TAB* 25 MG PO SCH ×2 (09:01→20:56)
[2018-03-18] MEDS: Diltiazem CD CAP* 240 MG PO SCH (09:01)
[2018-03-18] MEDS: Dofetilide CAP* 250 MCG PO SCH ×2 (09:01→20:56)
[2018-03-18] MEDS: Diltiazem CD CAP* 120 MG PO SCH (09:01)
[2018-03-18 10:56] LABS: EGFR Non-African American 83.4 (>60)
[2018-03-18] MEDS: Rivaroxaban TAB(*) 15 MG PO SCH (18:09)
[2018-03-18] MEDS: HYDROcodone/ACETAMIN 5-325 MG* 1 TAB PO PRN (21:19)
[2018-03-18] MEDS: RESTFUL LEGS PO PRN (21:20)
[2018-03-19 07:20] LABS: EGFR Non-African American 92.6 (>60)
[2018-03-19] MEDS: Diltiazem CD CAP* 120 MG PO SCH (10:16)
[2018-03-19] MEDS: Diltiazem CD CAP* 240 MG PO SCH (10:16)
[2018-03-19] MEDS: Dofetilide CAP* 250 MCG PO SCH (10:17)
[2018-03-19] MEDS: Metoprolol Succinate XL TAB* 25 MG PO SCH (10:18)
--- NOTE | 2018-03-19 16:08 | PN ---
Subjective Date of Service: 03/19/18 - cc: paroxysmal atrial fibrillation Interval History: Pt's breathing no different in sinus bradycardia. Mild OS dizziness this AM. Medications Active Medications: Hydrocodone Bitart/Acetaminophen ([place] 5-325 Tab*) 1 tab PO Q6H PRN PRN Reason: PAIN Last Admin: 03/18/18 21:19 Dose: 1 tab Diltiazem HCl (Cardizem Cd Cap*) 120 mg PO DAILY [facility] Last Admin: 03/19/18 10:16 Dose: 120 mg Diltiazem HCl (Cardizem Cd Cap*) 240 mg PO DAILY [facility] Last Admin: 03/19/18 10:16 Dose: 240 mg Dofetilide (Tikosyn Cap*) 125 mcg PO BID [facility] Metoprolol Succinate (Toprol Xl Tab*) 25 mg PO BID [facility] Last Admin: 03/19/18 10:18 Dose: Not Given Nft: Restful Legs (Tablet) 4 dose PO BEDTIME PRN PRN Reason: LEG JERKS Last Admin: 03/18/18 21:20 Dose: 4 dose Rivaroxaban (Xarelto(*)) 15 mg PO QPM [facility] Last Admin: 03/18/18 18:09 Dose: 15 mg Objective Vital Signs: Temp Pulse Resp BP Pulse Ox 98.7 F 55 20 134/51 97 03/19/18 14:48 03/19/18 15:34 03/19/18 14:48 03/19/18 15:34 03/19/18 14:48 Oxygen Devices in Use Now: None Appearance: Overweight, seated, in no distress. Ears/Nose/Mouth/Throat: Clear Oropharnyx, Mucous Membranes Moist Neck: NL Appearance and Movements; NL JVP Respiratory: Symmetrical Chest Expansion and Respiratory Effort, Clear to Auscultation - distant Cardiovascular: NL Sounds; No Murmurs; No JVD, RRR Abdominal: NL Sounds; No Tenderness; No Distention - obese Extremities: No Edema, No Clubbing, Cyanosis Skin: No Rash or Ulcers Neurological: Alert and Oriented x 3 Lines/Tubes/Other Access: Clean, Dry and Intact Peripheral IV Laboratory Results: 03/17/18 10:11 03/19/18 05:50 EKG Data: ECG: Sinus bradycardia QT 513, QTc 482 (rate 53 bpm). Monitor: NSR, 3 beats VT. Assessment/Plan 73 yo female with PAF and tachycardic response when in afib getting Tikosyn loaded, broke through propafanone, sotolol. 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 QT is long. Decrease tikosyn dose to 125 mcg BID Stop metoprolol for bradycardia. Continue to monitor.
[2018-03-19] MEDS: Rivaroxaban TAB(*) 15 MG PO SCH (18:05)
[2018-03-19] MEDS: RESTFUL LEGS PO PRN (18:06)
[2018-03-19] MEDS: HYDROcodone/ACETAMIN 5-325 MG* 1 TAB PO PRN (21:30)
[2018-03-19] MEDS: Dofetilide CAP* 125 MCG PO SCH (21:31)
[2018-03-20 06:24] LABS: EGFR Non-African American 83.4 (>60)
[2018-03-20] MEDS: Dofetilide CAP* 125 MCG PO SCH ×2 (08:44→20:50)
[2018-03-20] MEDS: Diltiazem CD CAP* 240 MG PO SCH (08:44)
[2018-03-20] MEDS: Diltiazem CD CAP* 120 MG PO SCH (08:44)
--- NOTE | 2018-03-20 10:49 | PN ---
Subjective Date of Service: 03/20/18 - CC: afib Interval History: Showered, feels better. No new c/o, anxious to go home, walking w/o problems Medications Active Medications: Hydrocodone Bitart/Acetaminophen ([place] 5-325 Tab*) 1 tab PO Q6H PRN PRN Reason: PAIN Last Admin: 03/19/18 21:30 Dose: 1 tab Diltiazem HCl (Cardizem Cd Cap*) 120 mg PO DAILY [facility] Last Admin: 03/20/18 08:44 Dose: 120 mg Diltiazem HCl (Cardizem Cd Cap*) 240 mg PO DAILY [facility] Last Admin: 03/20/18 08:44 Dose: 240 mg Dofetilide (Tikosyn Cap*) 125 mcg PO BID [facility] Last Admin: 03/20/18 08:44 Dose: 125 mcg Nft: Restful Legs (Tablet) 4 dose PO BEDTIME PRN PRN Reason: LEG JERKS Last Admin: 03/19/18 18:06 Dose: 4 dose Rivaroxaban (Xarelto(*)) 15 mg PO QPM [facility] Last Admin: 03/19/18 18:05 Dose: 15 mg Objective Vital Signs: Temp Pulse Resp BP Pulse Ox 97.9 F 64 20 140/58 98 03/20/18 08:41 03/20/18 08:44 03/20/18 08:41 03/20/18 08:41 03/20/18 08:41 Oxygen Devices in Use Now: None Appearance: Seated, in no distress. Eyes: No Scleral Icterus, PERRLA Ears/Nose/Mouth/Throat: Clear Oropharnyx, Mucous Membranes Moist Neck: NL Appearance and Movements; NL JVP Respiratory: Symmetrical Chest Expansion and Respiratory Effort, Clear to Auscultation - distant Cardiovascular: NL Sounds; No Murmurs; No JVD, RRR Abdominal: NL Sounds; No Tenderness; No Distention - obese Extremities: No Edema, No Clubbing, Cyanosis Skin: No Rash or Ulcers Neurological: Alert and Oriented x 3 Lines/Tubes/Other Access: Clean, Dry and Intact Peripheral IV Laboratory Results: 03/17/18 10:11 03/20/18 05:40 EKG Data: 03/19/18 ECG: Sinus bradycardia QT 513, QTc 482 (rate 53 bpm). Monitor: NSR, PAC's. 03/20/18 ECG NSR, improved QT intervals. Assessment/Plan 73 yo female with PAF and tachycardic response when in afib getting Tikosyn loaded, broke through propafanone, sotolol. 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 QT is long, but improving on lower dose of Tikosyn. -Tentative d/c Saturday. temporary and dc scripts completed, eRx to pharmacy.
[2018-03-20] MEDS: RESTFUL LEGS PO PRN (18:57)
[2018-03-20] MEDS: Rivaroxaban TAB(*) 15 MG PO SCH (18:57)
[2018-03-20] MEDS: HYDROcodone/ACETAMIN 5-325 MG* 1 TAB PO PRN (20:51)
[2018-03-21] MEDS: Dofetilide CAP* 125 MCG PO SCH (08:12)
[2018-03-21] MEDS: Diltiazem CD CAP* 120 MG PO SCH (08:12)
[2018-03-21] MEDS: Diltiazem CD CAP* 240 MG PO SCH (08:12)
[2018-03-21 08:14] VITALS: BP 137/58
--- NOTE | 2018-04-01 04:40 | DS ---
CC: Dr. Humberto Milner * DISCHARGE SUMMARY: DATE OF ADMISSION: 03/17/18 DATE OF DISCHARGE: 03/21/18 HISTORY OF PRESENT ILLNESS AND HOSPITAL COURSE: Mrs. Maxwell is a 73-year- old woman with paroxysmal atrial fibrillation and exertional dyspnea. She had recurrent atrial fibrillation following hip surgery while the patient was on propafenone. This medication was stopped and several days passed prior to admission for Tikosyn loading. The patient was started on 250 mcg b.i.d. and her QT interval became too long and she was therefore decreased to 125 mcg b.i.d. and QT intervals tolerated well. The patient was ambulating well and was maintaining normal sinus rhythm. PROBLEM LIST: Includes: 1. Coronary artery disease, stents in 1999. 2. Paroxysmal atrial fibrillation, failed sotalol and propafenone. 3. COPD. 4. Obstructive sleep apnea. 5. Hypertension. 6. Shingles. 7. Osteoarthritis. 8. Tuberculosis (childhood). 9. Restless legs syndrome. LABORATORY DATA: Labs on 03/20/18 showed sodium 137, potassium 4.0, chloride 109, bicarb 24, BUN 17, creatinine 0.69. A 12-lead ECG on 03/20/18 showed normal sinus rhythm at 57 beats a minute, QRS axis +30, first-degree AV block, normal interventricular conduction times, and corrected QT interval of 484 milliseconds. IMPRESSION AND PLAN: In conclusion, Marbella Maxwell is a 73-year-old woman with a history of paroxysmal atrial fibrillation desirous of maintaining sinus rhythm, who underwent successful dofetilide loading at 125 mcg b.i.d. She will be discharged on this as well as diltiazem 360 mg a day, Tylenol with hydrocodone, Xarelto 15 mg a day. She will follow up with Dr. Galeas's office within a month of discharge for EKG and review. Written and verbal instructions were provided to the patient about interactions with dofetilide. CONCLUSION: Successful Tikosyn loading. [id number]/[facility] #: [id number] [facility]
== END 2018-03-21 09:00 | disposition home or self-care (01) | DRG 201 ==
LOC: MEDTELE 08:49
PROVIDERS: ADMIT Specialist; ATTEND Specialist
DX: I48.0 Paroxysmal atrial fibrillation (principal); I25.10 Atherosclerotic heart disease of native coronary artery without angina pectoris; I48.1 Persistent atrial fibrillation; G47.33 Obstructive sleep apnea (adult) (pediatric); E78.2 Mixed hyperlipidemia; I10 Essential (primary) hypertension; Z96.641 Presence of right artificial hip joint; J44.9 Chronic obstructive pulmonary disease, unspecified; I44.0 Atrioventricular block, first degree; G25.81 Restless legs syndrome; R00.1 Bradycardia, unspecified; I08.1 Rheumatic disorders of both mitral and tricuspid valves; Z82.49 Family history of ischemic heart disease and other diseases of the circulatory system; Z86.11 Personal history of tuberculosis; Z86.19 Personal history of other infectious and parasitic diseases; Z95.5 Presence of coronary angioplasty implant and graft; Z88.6 Allergy status to analgesic agent; Z91.040 Latex allergy status; Z72.89 Other problems related to lifestyle; Z87.891 Personal history of nicotine dependence
CPT/HCPCS: 36415; 80048; 83735; 85027; 93005; A9270-GY

== ENCOUNTER 2019-06-04 07:07 | Emergency (ER) | payer BC, MEDICARE ==
--- NOTE | 2019-06-04 07:33 | ED ---
Lower Extremity - HPI Summary HPI Summary: Patient is a 74 y/o F presenting to the ED for a chief complaint of left foot pain after dropping a TV remote on her foot on 06/02/19. On triage, she rates the pain as a 5/10 in severity. Patient reports having a laceration on the left foot and left foot edema. She has been able to ambulate, but notes pain with ambulation. She has taken Tylenol without relief. No alleviating factors are noted. Patient takes Xarelto. - History of Current Complaint Chief Complaint: EDExtremityLower Stated Complaint: DROPPED TV REMOTE ON FOOT THINKS ITS BROKE PER PT Time Seen by Provider: 06/04/19 07:11 Hx Obtained From: Patient Onset of Pain: Immediate Onset/Duration: Still Present Severity Initially: Moderate Severity Currently: Moderate Pain Intensity: 5 Pain Scale Used: 0-10 Numeric Timing: Constant Location: Is Discrete @ - Left foot Associated Signs And Symptoms: Positive: Swelling - Left foot Aggravating Factor(s): Ambulation Alleviating Factor(s): Nothing Able to Bear Weight: Yes - Allergies/Home Medications Allergies/Adverse Reactions: Allergies Allergy/AdvReac Type Severity Reaction Status Date / Time latex Allergy Severe Rash Verified 06/04/19 07:11 oxycodone [From OxyContin] Allergy Severe Vomiting Verified 06/04/19 07:11 aspirin Allergy Intermediate GI Upset Verified 06/04/19 07:11 ADHESIVE/BANDAIDES Allergy Severe RASH AND Uncoded 06/04/19 07:11 PULLS SKIN OFF Home Medications: Home Medications Rivaroxaban TAB(*) [Xarelto 20 mg] 15 mg PO DAILY 11/05/17 [History Confirmed ] Diltiazem CD CAP* [Cardizem CD CAP*] 120 mg PO DAILY 11/26/17 [History Confirmed 03/17/18] Hydrocodone/Acetaminophen [Hydrocodone-Acetamin 5-325 mg] 1 tab PO Q6H PRN 11/26 [History Confirmed 03/17/18] dilTIAZem HCl [Cartia Xt] 240 mg PO DAILY 11/27/17 [History Confirmed 03/17/18] Dofetilide CAP* [Tikosyn CAP*] 125 mcg PO BID #60 cap 03/20/18 [Rx] PMH/Surg Hx/FS Hx/Imm Hx Previously Healthy: Yes Endocrine/Hematology History: Reports: Hx Anticoagulant Therapy Denies: Hx Bone Marrow Disease, Hx Diabetes, Hx Sickle Cell Disease, Hx Anemia, Hx Unexplained Bleeding Cardiovascular History: Reports: Hx Hypertension, Other Cardiovascular Problems/ Disorders - Cardio loop implant, Paroxysmal Atrial Fibrillation, Cardioverted x4 Denies: Hx Aneurysm, Hx Angina, Hx Angioplasty, Hx Auto Implanted Cardiovert Defib, Hx Cardiac Arrest, Hx Cardiomegaly, Hx Congenital Heart Disease, Hx Congestive Heart Failure, Hx Coronary Artery Disease, Hx Deep Vein Thrombosis, Hx Embolism, Hx Hypercholesterolemia, Hx Hypotension, Hx Pacemaker/ICD, Hx Peripheral Vascular Disease, Hx Rheumatic Fever, Hx Syncope, Hx Valvular Heart Disease Respiratory History: Reports: Hx Sleep Apnea Denies: Hx Asthma, Hx Chronic Bronchitis, Hx Chronic Obstructive Pulmonary Disease (COPD), Hx Cystic Fibrosis, Hx Lung Cancer, Hx Pleural Effusion, Hx Pneumonia, Hx Pulmonary Edema, Hx Pulmonary Embolism, Hx Seasonal Allergies, Other Respiratory Problems/Disorders GI History: Reports: Hx Gall Bladder Disease - removed Denies: Hx Cirrhosis, Hx Crohn's Disease, Hx Diverticulosis, Hx Gastroesophageal Reflux Disease, Hx Gastrointestinal Bleed, Hx Hiatal Hernia, Hx Irritable Bowel, Hx Jaundice, Hx Obstructive Bowel, Hx Ileostomy, Hx Pyloric Stenosis, Hx Ulcer, Other GI Disorders History: Denies: Hx Acute Renal Failure, Hx Benign Prostatic Hyperplasia, Hx Chronic Renal Failure, Hx Dialysis, Hx Kidney Infection, Hx Kidney Stones, Hx Renal Disease, Other Problems/Disorders Musculoskeletal History: Reports: Hx Arthritis, Hx Back Problems - chronic back pain, Hx Bursitis - trochanteric bursitis right hip, Hx Tendonitis - carpal tunnel, right wrist, Other Musculoskeletal History - Idiopathic aseptic necrosis of right femur Denies: Hx Congenital Bone Abnormalities, Hx Fibromyalgia, Hx Gout, Hx Orthopedic Injury, Hx Osteoporosis, Hx Scoliosis Sensory History: Reports: Hx Contacts or Glasses Denies: Hx Cataracts, Hx Eye Injury, Hx Eye Prosthesis, Hx Glaucoma, Hx Legally Blind, Hx Macular Degeneration, Hx Vision Problem, Hx Deafness, Hx Hearing Aid, Hx Hearing Problem, Other Sensory Impairments Opthamlomology History: Reports: Hx Contacts or Glasses Denies: Hx Cataracts, Hx Eye Injury, Hx Eye Prosthesis, Hx Glaucoma, Hx Legally Blind, Hx Macular Degeneration, Hx Vision Problem, Other Sensory Impairments EENT History: Denies: Hx Deafness Neurological History: Reports: Hx Headaches, Hx Migraine - occasional Denies: Hx Dementia, Hx Developmental Delay, Hx Nerve Disease, Hx Seizures, Hx Spinal Cord Injury, Hx Transient Ischemic Attacks (TIA), Other Neuro Impairments/Disorders Psychiatric History: Denies: Hx Anxiety, Hx Attention Deficit Hyperactivity Disorder, Hx Eating Disorder, Hx Depression, Hx Panic Disorder, Hx Post Traumatic Stress Disorder, Hx Inpatient Treatment, Hx Community Mental Health Tx, Hx Schizophrenia, Hx Bipolar Disorder, Hx Suicide Attempt, Hx of Violent Episodes Against Others, Hx Substance Abuse, Other Psychiatric Issues/Disorders - Cancer History Hx Chemotherapy: No Hx Radiation Therapy: No Hx Palliative Cancer Treatment: No - Surgical History Surgical History: Yes Surgery Procedure, Year, and Place: Hysterectomy. Cholestectomy. 3 HEART STENTS PLACED 1999,[place]. ILINQ LOOP RECORDER 2017 Hx Anesthesia Reactions: Yes - nausea after hysterectomy, last procedures no issues Infectious Disease History: Yes Infectious Disease History: Reports: Hx Shingles - 06/2015, Hx Tuberculosis - Age 17 Denies: Hx Clostridium Difficile, Hx Hepatitis, Hx Human Immunodeficiency Virus (HIV), Hx of Known/Suspected MRSA, History Other Infectious Disease, Traveled Outside the [place] in Last 30 Days - Family History Known Family History: Positive: Cardiac Disease - Social History Occupation: Retired Lives: With Family Alcohol Use: Rare Hx Substance Use: No Substance Use Type: Reports: None Hx Tobacco Use: Yes Smoking Status (MU): Former Smoker Type: Cigarettes Amount Used/How Often: 1 ppd for 40+ years Length of Time of Smoking/Using Tobacco: 45 Have You Smoked in the Last Year: No Review of Systems Positive: Myalgia - Left foot, Edema - Left foot Positive: Other - Positive laceration on the left foot All Other Systems Reviewed And Are Negative: Yes Physical Exam - Summary Physical Exam Summary: General: Well appearing, no distress HEENT: PERRL Cardiovascular: Skin is well perfused Pulmonary: No respiratory distress, no tachypnea Abdomen: Non-distended Skin: Warm, pink, dry MSK: Tenderness and ecchymosis with swelling over the left MTP. 2+ DP pulse. No ankle tenderness Psych: Normal affect Neuro: A&Ox3 Triage Information Reviewed: Yes Vital Signs On Initial Exam: Initial Vitals Temp Pulse Resp BP Pulse Ox 97.8 F 87 16 182/80 96 06/04/19 07:09 06/04/19 07:09 06/04/19 07:09 06/04/19 07:09 06/04/19 07:09 Vital Signs Reviewed: Yes Procedures - Sedation Patient Received Moderate/Deep Sedation with Procedure: No Diagnostics - Vital Signs Vital Signs Temp Pulse Resp BP Pulse Ox 06/04/19 07:09 97.8 F 87 16 182/80 96 - Laboratory Lab Statement: Any lab studies that have been ordered have been reviewed, and results considered in the medical decision making process. - Radiology Foot X-ray Radiology Interpretation Completed By: Radiologist Summary of Radiographic Findings: Foot X-ray IMPRESSION: OSTEOPENIA. NO ACUTE OSSEOUS INJURY. IF SYMPTOMS PERSIST, RECOMMEND REPEAT IMAGING. Reviewed by Dr. Sheldon. Re-Evaluation - Re-Evaluation First Eval Re-Evaluation Time: 07:52 Change: Unchanged Comment: At 07:52, patient will be given a post OP shoe for comfort. Lower Extremity Course/Dx - Course Course Of Treatment: 74 y/o F p/w L foot pain. - exam w ecchymosis and swelling to 5th MTP. XRay neg, given post operative shoe. Suspect contusion - Diagnoses Provider Diagnoses: Left foot pain Discharge ED - Sign-Out/Discharge Documenting (check all that apply): Patient Departure - Discharge - Discharge Plan Condition: Stable Disposition: HOME Patient Education Materials: Foot Contusion (ED) Referrals: Humberto Milner MD [Primary Care Provider] - Additional Instructions: You were seen in the emergency department for left foot pain. Your x-ray did not show any fractures. You can wear a postoperative shoe for comfort. Please take Tylenol for pain. Please repeat x-rays in 2 weeks if you have persistent pain. Please follow up with your primary care doctor in next 2-3 days and return to emergency department for worsening or concerning symptoms. It was a pleasure taking care of you today. - Billing Disposition and Condition Condition: STABLE Disposition: Home - Attestation Statements Document Initiated by Scribe: Yes Documenting Scribe: Kat Gavin Provider For Whom Scribe is Documenting (Include Credential): Eliot Sheldon MD Scribe Attestation: Kat Ayala, scribed for Eilot Sheldon MD on 06/04/19 at 0815. Scribe Documentation Reviewed: Yes Provider Attestation: The documentation as recorded by the scribe, Kat Gavin accurately reflects the service I personally performed and the decisions made by me, Eliot Sheldon MD Status of Craig Document: Viewed
[2019-06-04 08:21] VITALS: BP 167/75
== END 2019-06-04 08:20 | disposition home or self-care (01) ==
LOC: ED 07:07
DX: M79.672 Pain in left foot (principal); M85.872 Other specified disorders of bone density and structure, left ankle and foot; W20.8XXA Other cause of strike by thrown, projected or falling object, initial encounter; Y92.009 Unspecified place in unspecified non-institutional (private) residence as the place of occurrence of the external cause; I10 Essential (primary) hypertension; I48.0 Paroxysmal atrial fibrillation; Z90.49 Acquired absence of other specified parts of digestive tract; Z90.710 Acquired absence of both cervix and uterus; Z95.5 Presence of coronary angioplasty implant and graft; Z87.891 Personal history of nicotine dependence; Z79.01 Long term (current) use of anticoagulants; Z79.899 Other long term (current) drug therapy; Z88.5 Allergy status to narcotic agent; Z88.8 Allergy status to other drugs, medicaments and biological substances; Z91.040 Latex allergy status
CPT/HCPCS: 99281